=== PATIENT | female | born 1955 | race Caucasian/White ===

== ENCOUNTER 2022-08-11 07:57 | Outpatient (OUT) | payer MEDICARE, SELFPAY ==
--- NOTE | 2022-08-11 08:18 | XR_ITS ---
The [address] [address] Patient Name: CHESTER TEAGUE MRN: [id number] date: 1955 Sex: F Assigned Patient Location: [facility] Current Patient Location: [facility] Accession/Order Number: [id number] Exam Date: 08/11/2022 08:25 Report Date: 08/11/2022 08:50 At the request of: NEERAJ SANTORO Procedure: XR shoulder LT min 2V Exam: Radiographs: XR shoulder LT min 2V Reason for exam: Chronic Left Shoulder Pain M25.512 Comparison: None IMPRESSION: Mild left glenohumeral and AC joint degenerative change. Remainder of the left shoulder is unremarkable. Electronically authenticated by: EMILY GREWAL Date: 08/11/2022 08:50
== END 2022-08-11 07:58 | disposition home or self-care (01) ==
LOC: RAD 08:00
PROVIDERS: PCP Internal Medicine; Visit Provider Physician Assistant
DX: M25.512 Pain in left shoulder (principal); G89.29 Other chronic pain
CPT/HCPCS: 73030

== ENCOUNTER 2023-05-14 08:22 | Outpatient (OUT) | payer MEDICARE, SELFPAY ==
--- NOTE | 2023-05-14 08:29 | US_ITS ---
[address] [address] Patient Name: CHESTER TEAGUE MRN: [id number] date: 1955 Sex: F Assigned Patient Location: US Current Patient Location: US Accession/Order Number: [id number] Exam Date: 05/14/2023 09:00 Report Date: 05/14/2023 10:14 At the request of: NEERAJ SANTORO Procedure: US right upper quadrant EXAMINATION: US right upper quadrant HISTORY: history of pancreatic cancer Z80.0 ; chronic right upper quadrant pain COMPARISON: No relevant comparison available. TECHNIQUE: Transabdominal evaluation of the right upper quadrant. FINDINGS: LIVER: Normal size and echotexture. Color Doppler demonstrates patent hepatic veins. PORTAL VEIN: Duplex Doppler demonstrates normal hepatopetal flow pattern with flow velocity averaging 30 cm/s. GALLBLADDER: No visible gallstones, wall thickening, or pericholecystic free fluid. Negative sonographic Barnett's sign. BILIARY: No abnormal dilation or stones. Common bile duct diameter is within normal limits. PANCREASE: No visible mass, abnormal atrophy, or duct dilation. KIDNEY: No hydronephrosis. No visible mass or stones. Size: 9.0 x 4.1 x 4.0 cm US/US right upper quadrant IMPRESSION: 1. Normal right upper quadrant ultrasound. No suspicious findings. Electronically authenticated by: LEO ORO Date: 05/14/2023 10:14
--- NOTE | 2023-05-14 08:31 | CT_ITS ---
[address] [address] Patient Name: CHESTER TEAGUE MRN: [id number] date: 1955 Sex: F Assigned Patient Location: US Current Patient Location: US Accession/Order Number: [id number] Exam Date: 05/14/2023 08:37 Report Date: 05/14/2023 10:32 At the request of: NEERAJ SANTORO Procedure: CT lung screening low-dose EXAMINATION: CT lung screening low-dose HISTORY: cigarette nicotine dependence without complication F17.210 COMPARISON: CT LUNG CANCER SCREENING 04/11/2022 TECHNIQUE: Axial, Coronal, and Sagittal images were created without the administration of IV contrast material. Dose reduction techniques were achieved by using automated exposure control and/or adjustment of mA and/or kV according to patient size and/or use of iterative reconstruction technique. FINDINGS: LUNGS: Stable mild pleural scarring within posterior upper lobes bilaterally. Stable appearance of a few tiny nodules, largest is within the lateral lingula, 5 mm. PLEURA: No mass, effusion, or pneumothorax. VASCULATURE: No abnormality. SUSSY: No mass or pathologic adenopathy. MEDIASTINUM: No mass or pathologic adenopathy. CARDIAC: No enlargement, pericardial thickening, or pericardial effusion. AORTA: No aneurysm or dissection. CHEST WALL: No mass or axillary adenopathy BONES: No bone lesion or fracture. LIMITED ABDOMEN: No suspicious findings. Limited images of the upper abdomen. OTHER: Negative. CT/CT lung screening low-dose IMPRESSION: 1. Lung-RADS 2- Benign Appearance or Behavior. Nodules with a very low likelihood of becoming a clinically active cancer due to size or lack of growth. Follow-up CT Chest in 1 year. Electronically authenticated by: LEO ORO Date: 05/14/2023 10:32
== END 2023-05-14 08:23 | disposition home or self-care (01) ==
LOC: US 08:22
PROVIDERS: PCP Internal Medicine; Visit Provider Physician Assistant
DX: R10.11 Right upper quadrant pain (principal); Z87.19 Personal history of other diseases of the digestive system; Z80.0 Family history of malignant neoplasm of digestive organs; F17.210 Nicotine dependence, cigarettes, uncomplicated
CPT/HCPCS: 71271; 76705

== ENCOUNTER 2023-07-03 12:28 | Outpatient (OUT) | payer MEDICARE, SELFPAY ==
--- NOTE | 2023-07-03 12:32 | MM_ITS ---
Patient Name: CHESTER TEAGUE MR#: [id number] : 1955 Exam Date: 07/03/2023 Ordering Doctor: DR. REA MONTEJO M.D. RADIOLOGY REPORT PROCEDURE: MM TOMOSYNTHESIS SCREENING BI COMPARISON: [facility] SCREEN 3D LEONOR CAD, 06/09/2022. [facility] SCREEN 3D LEONOR CAD, 08/18/2020. [facility]ONOR DIAG W CAD, 08/19/2019. [facility] LEONOR SCRN W CAD DIG, 05/28/2013. INDICATIONS: Screening Calculator Name NCI Breast Cancer Risk Assessment Tool 5 Year Breast Cancer Risk n/a% Lifetime Breast Cancer Risk n/a% Personal Breast Cancer Yes, 5-16 Personal Ovarian Cancer No Treatments lumpectomy, radiation Family Cancers Aunt-maternal with breast cancer at age ~60; Nephew with pancreatic cancer at age 39; Father with prostate cancer at age ~70; Grandfather-paternal with prostate cancer at age ~70. LOCATION: [facility] BREAST COMPOSITION: There are scattered areas of fibroglandular density. FINDINGS: DIAGNOSTIC CATEGORY 2--BENIGN FINDING: RIGHT BREAST: No significant suspicious finding. No significant change has occurred. LEFT BREAST: No significant suspicious finding. Stable surgical clips within upper-outer quadrant and scarring within anterior breast. No significant change has occurred. RECOMMENDATIONS: ROUTINE MAMMOGRAM AND CLINICAL EVALUATION IN 12 MONTHS. PLEASE NOTE: A NORMAL MAMMOGRAM DOES NOT EXCLUDE THE POSSIBILITY OF BREAST CANCER. A CLINICALLY SUSPICIOUS PALPABLE LUMP SHOULD BE BIOPSIED. Dictated by: Matthew Coyle M.D. on 07/03/2023 at 14:44 Approved by: Matthew Coyle M.D. on 07/03/2023 at 14:46
--- NOTE | 2023-07-03 12:32 | XR_ITS ---
[address] [address] Patient Name: CHESTER TEAGUE MRN: [id number] date: 1955 Sex: F Assigned Patient Location: [facility] Current Patient Location: [facility] Accession/Order Number: [id number] Exam Date: 07/03/2023 12:45 Report Date: 07/03/2023 13:21 At the request of: REA MONTEJO Procedure: XR DEXA axial skeleton EXAMINATION: XR DEXA axial skeleton HISTORY: Aromatase inhibitor use Z79.811 COMPARISON: DEXA bone densitometry 11/02/2020 TECHNIQUE: Dual-energy X-ray absorptiometry (DXA) was performed. FINDINGS: FOREARM ANALYSIS: Average bone mineral density is 0.556 g/cm2. T-score (standard deviation relative to young adult mean): -2.2 . -2.5% change since prior study. HIP ANALYSIS: Lowest bone mineral density is within the right femoral neck, 0.953 g/cm2. T-score (standard deviation relative to young adult mean): -0.6 . +0.2% change since prior study. XR/XR DEXA axial skeleton IMPRESSION: World [employer] Classification: Osteopenia - Moderate Fracture Risk FRAX: Electronically authenticated by: LEO ORO Date: 07/03/2023 13:21
== END 2023-07-03 12:29 | disposition home or self-care (01) ==
LOC: MAMMO 12:28
PROVIDERS: PCP Internal Medicine; Visit Provider Internal Medicine Hematology & Oncology
DX: Z12.31 Encounter for screening mammogram for malignant neoplasm of breast (principal); Z79.811 Long term (current) use of aromatase inhibitors; Z80.3 Family history of malignant neoplasm of breast; Z80.8 Family history of malignant neoplasm of other organs or systems; Z80.42 Family history of malignant neoplasm of prostate; M85.80 Other specified disorders of bone density and structure, unspecified site
CPT/HCPCS: 77063; 77067; 77080

== ENCOUNTER 2023-11-27 11:14 | Outpatient (OUT) | payer MEDICARE, SELFPAY ==
--- OUTSIDE RECORDS SUMMARY | 2023-11-27 11:20 | XMS_ITS | CCD ---
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 Name Role Phone WILLARD OLMSTEAD Referring Unavailable CECILIO PATEL Primary Care Unavailable WILLARD OLMSTEAD Referring Unavailable CECILIO PATEL Primary Care Unavailable Cecilio Patel MD Primary Care Provider Cecilio Patel II Primary Care Provider Cecilio Patel II Primary Care Provider [phone] Christine Sanabria Unavailable Unavailable MD Santy Naranjo Attending Provider [phone] Maude, KPC Lorenza Primary Care Provider Santy Naranjo Attending Unavailable Santy Naranjo Admitting Unavailable Lorenza Santoro Primary Care Unavailable Amador Cope Unavailable ABMARY, JOEY Admitting Unavailable PREETHI, DR LEO Jacinto Consulting Unavailable DR CECILIO PATEL Primary Care Unavailable GUSTABO, JOEY Attending Unavailable ABMARY, JOEY Consulting Unavailable PREETHI, DR LEO Jacinto Consulting Unavailable JORGE, DR CHERY Primary Care Unavailable MAUDE, DR LORENZA Pruitt Admitting Unavailable HEMMER, DR LORENZA Pruitt Attending Unavailable HEMMAJO, DR LORENZA Pruitt Consulting Unavailable DR CECILIO PATEL Primary Care Unavailable Oliver Nj Consulting Unavailable HEMMAJO, DR LORENZA Pruitt Admitting Unavailable HEMMER, DR LORENZA Pruitt Attending Unavailable HEMMAJO, DR LORENZA Pruitt Consulting Unavailable Joreg PENALOZA MD, Daniel B Primary Care Provider CECILIO PATEL II Primary Care Unavailable ABCHAGOAR, JOEY Attending Unavailable ABHYANKAR, JOEY Referring Unavailable ABHYANKAR, JOEY Attending Unavailable GUSTABO, JOEY Referring Unavailable CECILIO PATEL II Primary Care Unavailable GUSTABO, JOEY Referring Unavailable JORGE IICECILIO Primary Care Unavailable ABCHAGOAR, JOEY Referring Unavailable CECILIO PATEL II Primary Care Unavailable GUSTABO, JOEY Referring Unavailable JORGE PENALOZA, CEICLIO Roberts Primary Care Unavailable Cecilio Patel MD Primary Care Provider LORENZA SANTORO Attending Unavailable HEMMERLORENZA Attending Unavailable MONICA HIGHTOWER Attending Unavailable HEMMERLORENZA Referring Unavailable KELBLEYJACKIE Attending Unavailable HEMMER, LORENZA Pruitt Referring Unavailable DAVID CROSS Attending Unavailable KELBLEJACKIE Zaldivar Attending Unavailable HEMMER, LORENZA Pruitt Referring Unavailable MONICA HIGHTOWER Attending Unavailable HEMMER, LORENZA Pruitt Referring Unavailable KELBLEY, JACKIE Attending Unavailable HEMMER, LORENZA Pruitt Referring Unavailable KELBLEY, JACKIE Attending Unavailable HEMMER, LORENZA Pruitt Referring Unavailable KELBLEY, JACKIE Attending Unavailable HEMMER, LORENZA Pruitt Referring Unavailable KELBLEYJACKIE Attending Unavailable HEMMERLORENZA Referring Unavailable Allergies Allergy Classification Reported Allergen(s) Allergy Type Date of Onset Reaction(s) Facility (6 sources) buPROPion Drug Allergy 07-12-2021 Anxiety [facility] Work Phone: (6 sources) zolpidem Drug Allergy 08-02-2022 [facility] Medications Current Medications Medication Drug Class(es) Dates Sig (Normalized) Sig (Original) acetaminophen 325 mg / oxyCODONE hydrochloride 5 mg oral tablet (14 sources) Opioid Agonist Start: 07-30-2019 take 1 tablet by mouth every six hours oxyCODONE-Acetami nophen 5-325 MG 1 tablet as needed Orally every 6 hrs for 14 days Jul, Active Start: 12-05-2017 take 1 tablet by kenton th every four to six hours Oxycodone-Acetaminophen Active 1 TAB PO EVERY 4-6 HOURS 49 7 December 05, 2017 12:00am Start: 01-23-2017 End: 11-20-2017 take 1 tablet by mouth every six hours Oxycodone-Acetaminophen (Percocet) 5-325 mg tablet Discontinued 1 TAB PO Q6H January 23, 2017 1:00am November 20, 2017 8:43am Start: 01-10-2017 End: 01-23-2017 take 1 tablet by mouth every four to six hours Oxycodone-Acetaminophen Discontinued 1 T AB PO EVERY 4-6 HOURS January 10, 2017 1:00am January 23, 2017 7:56am take 1 tablet by kenton th every four hours as needed oxyCODONE-acetaminophen (PERCOCET) 7.5-3 25 mg tablet Take 1 tablet by mouth every 4 hours as needed. 0 Active Comment on above: Take 1 tablet by kenton th every 4 hours as needed. ALPRAZolam 0.5 mg oral tablet (18 sources) Benzodiazepine Start: 7 take 1 tablet by mouth once daily ALPRAZolam (Xanax) 0.5 MG tablet Indications: Panic disorder with agoraphobia (CMS/HCC) Take 1 tablet (0.5 mg) by mouth 1 (one) time each day at the same time 30 tablet 05/07/2023 Active take 0.5 mg by mouth once daily as needed for sleep ALPRAZolam (XANAX) 1 MG tablet Take 0.5 mg by mouth nightly as needed for Sleep. 0 Active Comment on above: Take 0.5 mg by mouth at bedtime as needed. anastrozole 1 mg oral tablet (11 sources) Aromatase Inhibitor Start: 01-10-2017 take 1 tablet by mouth once daily anastrozole (ARIMIDEX) 1 mg tablet Take 1 tablet by mouth once daily. 90 tablet 1 04/21/2021 Active Comment on above: Take 1 tablet by kenton th once daily. ascorbic acid 1000 mg oral tablet (15 sources) Vitamin C Start: 01-10-2017 take 1 g by mouth once daily Ascorbic Acid (Vitamin C) (Vitamin C) 1,000 mg Tablet Active 1 GM PO Daily January 10, 2017 1:00am ascorbic acid (V itamin C) 500 MG chewable tablet 1 (one) time each day at the same time. Active Comment on above: Take 1,000 mg by kenton th once daily. atorvastatin 40 mg oral tablet (1 source) HMG-CoA Reductase Inhibitor Start: 05-16-19 take 40 mg by mouth once daily at bedtime Atorvastatin Active 40 MG PO Daily at bedtime May 15, 2022 12:00am busPIRone hydrochloride 10 mg oral tablet (1 source) Start: 05-16-19 take 1 tablet by mouth twice daily Buspirone (Buspar) 10 mg Tablet Active 10 MG PO Twice daily May 15, 2022 12:00am Calcium (3 sources) Phosphate Binder, Calcium CALCIUM ORAL Take by mouth. 0 Active Comment on above: Take by mouth. calcium carbonate 1250 mg oral tablet (1 source) take 2 tablets by mouth every twenty-four hours Calcium 500 MG 2 tablet with food Orally Once a day Active Calcium-Vitamin D3-Vitamin K (Viactiv) 650 mg-12.5 mcg-40 mcg Tablet,Chewable (1 source) Start: 11-12-19 take 1 tablet by mouth once daily Calcium-Vitamin D3-Vitamin K (Viactiv) 650 mg-12.5 mcg-40 mcg Tablet,Chewable Active 1 TAB PO Daily November 11, 2018 12:00am Centrum Silver - (1 source) Centrum Silver - as directed Orally Active Claritin-D 24 Hour 10-240 MG (1 source) take 10-240 mg by mouth once daily as needed Claritin-D 24 Hour 10-240 MG 1 tablet as needed Orally Once a day for 30 day(s) PRN Active cyclobenzaprine hydrochloride 10 mg oral tablet (7 sources) Muscle Relaxant Start: 10-12-19 24 cyclobenzaprine (Flexeril) 10 MG tablet Indications: Lumbar post-laminectomy syndrome TAKE 1 TABLET AT BEDTIME NEEDED FOR MUSCLE SPASMS 90 tablet 3 10/12/2023 Active Start: 05-15-2022 take 10 mg by mouth at bedtime Cyclobenzaprine Active 10 MG PO Bedtime May 15, 2022 12:00am diclofenac sodium 50 mg delayed release oral tablet (20 sources) Nonsteroidal Anti-inflammatory Drug Start: 10-05-2023 take 1 tablet by mouth in the morning diclofenac (Voltaren) 50 MG EC tablet Indications: Chronic left shoulder pain Take 1 tablet (50 mg) by mouth in the morning and 1 tablet (50 mg) before bedtime. Do not crush, chew, or split.. 60 tablet 2 10/05/2023 Active Start: 11-11-2018 apply 1 g topically twice nils y Diclofenac Sodium (Voltaren) 1 % Gel Active 1 GM TOPICAL Twice daily November 11, 2018 12:00am Start: 11-20-2017 take 50 mg by mouth twice nils y Diclofenac Sodium Active 50 MG PO Twice daily November 20, 2017 12:00am Start: 11-20-2017 End: 12-03-2018 Diclofenac Sodium Discontinu ed 1 APPLIC TOPICAL Twice daily November 20, 2017 12:00am December 03, 2018 8:16am Start: 01-10-2017 End: 01-23-2017 apply 2 g topically twice daily Diclofenac Sodium Disc ontinued 2 GM TOPICAL Twice daily January 10, 2017 1:00am January 23, 2017 7:56am diclofenac potas sium (CATAFLAM) 50 mg tablet Take 50 mg by mouth. 0 Active Comment on above: Take 50 mg by mouth. docusate sodium 100 mg oral tablet (8 sources) Docusate Sodium 100 mg tab Take 1 tablet by mouth as needed. 0 Active Comment on above: Take 1 tablet by ketnon as needed. fluticasone propionate 0.05 mg/actuat metered dose nasal spray (15 sources) Corticosteroid Start: 1 take 1 spray(s) nasal route once daily fluticasone (Flonase) 50 MCG/ACT nasal spray Indications: Allergic rhinitis, unspecified seasonality, unspecified trigger USE 1 SPRAY IN EACH NOSTRIL ONCE DAILY 32 g 3 04/09/2023 Active Start: 07-21-2019 take 1 spray(s) nasa l route once daily Fluticasone Propionate 50 MCG/ACT 1 spray in each nostril Nasally Once a day for 30 day(s) Jul, Active gabapentin 300 mg oral capsule (17 sources) Anti-epileptic Agent Start: 10-05-2023 take 2 capsules by mouth at bedtime gabapentin (Neurontin) 300 MG capsule Indications: Neuropathy Take 2 capsules (600 mg) by mouth at bedtime 10/05/2023 Active Start: 01-10-2017 gabapentin (NE URONTIN) 300 mg capsule 300 mg. 0 01/10/2017 Active take 1 capsule by mo [facility] three times daily gabapentin (NEURONTIN) 400 MG capsule Take 400 mg by mouth 3 times daily. 0 Active Comment on above: 300 mg. ibuprofen 200 mg oral tablet (8 sources) Nonsteroidal Anti-inflammatory Drug take 1 tablet by mouth every six hours as needed ibuprofen (MOTRIN) 200 mg tablet Take 200 mg by mouth every 6 hours as needed. 0 Active Comment on above: Take 200 mg by mouth every 6 hours as needed. levothyroxine sodium 0.025 mg oral tablet (15 sources) l-Thyroxine Start: 10-24-19 levothyroxine (Synthroid, Levoxyl) 25 MCG tablet Indications: Hypothyroidism, unspecified type (CMS/HCC) TAKE 1 TABLET ONE TIME DAILY IN THE MORNING ON AN EMPTY STOMACH 90 tablet 3 10/24/2023 Active Start: 10-22-2020 take 1 tablet by kenton th once daily in the morning levothyroxine (SYNTHROID) 25 mcg tablet Take 25 mcg by mouth every morning. Take On an Empty Stomach 0 10/22/2020 Active Comment on above: Take 25 mcg by mouth every morning. Take On an Empty Stomach loratadine 10 mg oral tablet (9 sources) Start: 11-11-2018 loratadine (CLARITIN) 10 mg tablet Loratadine Active 1 TAB Oral Daily November 11, 2018 10:56am 0 11/11/2018 Active Comment on above: Loratadine Active 1 TAB Oral Daily November 11, 2018 10:56am Magnesium (14 sources) Magnesium 300 MG capsule 1 (one) time each day at the same time. Active MAGNESIUM ORAL T yajaira 800 mg by mouth. 0 Active Magnesium 250 mg tab Take 250 mg by mouth. 0 Active Comment on above: Take 250 mg by mouth . Take 800 mg by mouth . melatonin 10 mg oral capsule (7 sources) Start: 11-11-2018 take 1 tablet by mouth at bedtime Melatonin Active 1 TAB PO Bedtime November 11, 2018 12:00am Melatonin 10 MG capsule as directed Orally Active mirtazapine 15 mg oral tablet (8 sources) Start: 10-26-2015 take 1 tablet by mouth once daily at bedtime mirtazapine (REMERON) 15 mg tablet Take 15 mg by mouth daily at bedtime. 0 10/26/2015 Active Comment on above: Take 15 mg by mouth daily at bedtime. MULTI-VITAMIN ORAL (8 sources) take 1 tablet by mouth once daily MULTI-VITAMIN ORAL Take 1 tablet by mouth once daily. 0 Active Comment on above: Take 1 tablet by kenton th once daily. Kq-Tcb-Yxrfy-Calciu m Carb-K1 (Women's 50 Plus Daily Formula) 400 mcg-500 mg calcium-20 mcg Tablet (1 source) Start: 01-10-2017 take 1 tablet by mouth once daily Po-Efs-Dhxjv-Calci um Carb-K1 (Women's 50 Plus Daily Formula) 400 mcg-500 mg calcium-20 mcg Tablet Active 1 TAB PO Daily January 10, 2017 1:00am omeprazole 20 mg delayed release oral capsule (16 sources) Proton Pump Inhibitor Start: 05-15-2022 take 1 capsule by mouth before mealtime omeprazole (PriLOSEC) [address] capsule Take 1 capsule by mouth in the morning. Take before meals. 08/21/2022 Active omeprazole (PRIL OSEC) 10 mg capsule Take 10 mg by mouth as needed. 0 Active Comment on above: Take 10 mg by mouth as needed. Take 20 mg by mouth as needed. 24 hr oxybutynin chloride 5 mg extended release oral tablet (8 sources) Cholinergic Muscarinic Antagonist Start: 10-19-2020 oxybutynin XL (DITROPAN XL) 5 mg 24 hr tablet PARoxetine hydrochloride 20 mg oral tablet (16 sources) Serotonin Reuptake Inhibitor Start: 11-12-2023 PARoxetine (Paxil) 20 MG tablet Indications: Moderate episode of recurrent major depressive disorder (CMS/HCC) TAKE 1 TABLET ONE TIME DAILY AT THE SAME TIME 90 tablet 3 11/12/2023 Active Start: 01-16-2023 take 1 tablet by kenton th once daily PARoxetine (Paxil) 20 MG tablet Indications: Moderate episode of recurrent major depressive disorder (CMS/HCC) Take 1 tablet (20 mg) by mouth 1 (one) time each day at the same time 100 tablet 3 01/16/2023 Active Start: 11-17-2021 take 1 tablet by kenton th once daily PARoxetine (PAXIL) 10 mg tablet Take 10 mg by mouth once daily. 0 11/17/2021 Active Start: 11-17-2021 take 1 tablet by kenton th once daily PARoxetine (PAXIL) 20 mg tablet Take 20 mg by mouth once daily. 0 11/17/2021 Active Start: 11-20-2017 take 30 mg by mouth once daily at bedtime Paroxetine Hcl Active 30 MG PO Daily at bedtime November 20, 2017 12:00am Comment on above: Take 20 mg by mouth once daily. Take 10 mg by mouth once daily. Polyethylene Glycols (3 sources) polyethylene gly col 3350 (PURELAX ORAL) Take by mouth. 0 Active Comment on above: Take by mouth. pravastatin sodium 40 mg oral tablet (18 sources) HMG-CoA Reductase Inhibitor Start: 11-17-2022 pravastatin (Pravachol) 40 MG tablet Indications: Mixed hyperlipidemia (CMS/HCC) TAKE 1 TABLET EVERY DAY 100 tablet 3 11/17/2022 Active Start: 01-10-2017 End: 05-15-2022 take 40 mg by mouth once daily at bedtime Pravastatin Discontinued 40 MG PO Daily at bedtime January 10, 2017 1:00am May 15, 2022 8:04am Comment on above: Take 40 mg by mouth once daily. Pseudoephedrine (6 sources) alpha-Adrenergic Agonist take 1 tablet by mouth in the morning Pseudoephedrine HCl (SINUS & ALLERGY 12 HOUR PO) Take 1 tablet by mouth in the morning and 1 tablet before bedtime. PRN. Active varenicline 1 mg oral tablet (1 source) Partial Cholinergic Nicotinic Agonist Start: 020 take 1 tablet by mouth every twelve hours Chantix 1 MG 1 tablet Orally Twice a day for 30 day(s) Jul, Active vitamin b12 1 mg oral tablet (6 sources) Vitamin B12 take 1 tablet by mouth once daily cyanocobalamin (Vitamin B-12) 1000 MCG tablet Take 1,000 mcg by mouth Daily Active Vitamin C 1000 MG (1 source) take 1 tablet by mouth once daily Vitamin C 1000 MG 1 tablet Orally Once a day Active 100 ml zoledronic acid 0.04 mg/ml injection (4 sources) Bisphosphonate Start: 023 Zoledronic Rwdd-Krezicpv-Auvuj (Zometa) 4 mg/100 mL Piggyback Active 4 MG IV EVERY 6 MONTHS May 15, 2022 12:00am administer over at least 15 mins zoledronic acid (ZOMETA INTRAVENOUS) Inject intravenously every 6 hours as needed. 0 Active Comment on above: Inject intravenously every 6 hours as needed. Completed/Discontinued Medications Medication Drug Class(es) Dates Sig (Normalized) Sig (Original) alendronic acid 70 mg oral tablet (3 sources) Bisphosphonate Start: 11-20-2017 End: 05-15-2022 take 70 mg by mouth every week Alendronate Discontinued 70 MG PO every week November 20, 2017 12:00am May 15, 2022 8:05am alendronate (FOS AMAX) 70 MG tablet Take 70 mg by mouth every 7 days 0 Active amitriptyline hydrochloride 25 mg oral tablet (1 source) Tricyclic Antidepressant Start: 01-10-2017 End: 11-20-2017 take 25 mg by mouth once daily at bedtime Elavil Discontinued 25 MG PO Daily at bedtime January 10, 2017 1:00am November 20, 2017 8:42am aspirin 81 mg delayed release oral tablet (9 sources) Platelet Aggregation Inhibitor, Nonsteroidal Anti-inflammatory Drug Start: 01-10-2017 End: 05-15-2022 take 81 mg by mouth once daily at bedtime Aspirin Discontinued 81 MG PO Daily at bedtime January 10, 2017 1:00am May 15, 2022 8:05am Comment on above: Take 81 mg by mouth once daily. benzonatate 100 mg oral capsule (1 source) Non-narcotic Antitussive Start: 04-09-2019 take 1 capsule by mouth every eight hours Benzonatate 100 MG 1 capsule as needed Orally Three times a day for 10 days Apr, Not-Taking 24 hr buPROPion hydrochloride 150 mg extended release oral tablet (3 sources) Aminoketone Start: 11-14-2019 take 1 tablet by mouth once daily in the morning buPROPion XL (WELLBUTRIN XL) 150 mg 24 hr tablet TAKE 1 TABLET BY MOUTH EVERY DAY IN THE MORNING 0 11/14/2019 Active Start: 01-10-2017 End: 11-20-2017 take 150 mg by mouth once daily in the morning Bupropion Hcl Discontinued 150 MG PO Every morning January 10, 2017 1:00am November 20, 2017 8:41am Comment on above: TAKE 1 TABLET BY [place] EVERY DAY IN THE MORNING calcium carbonate 1250 mg / cholecalciferol 500 unt / vitamin k1 0.04 mg chewable tablet (9 sources) Vitamin D, Warfarin Reversal Agent, Vitamin K Start: 017 End: 018 take 2 tablets by mouth once daily Calcium-Vitamin D3-Vitamin K (Viactiv) 500-500-40 mg-unit-mcg Tablet,Chewable Discontinued 2 TAB PO Daily January 10, 2017 1:00am November 20, 2017 8:41am Comment on above: Take 2 tablets by mo [facility] once daily. cefdinir 300 mg oral capsule (1 source) Cephalosporin Antibacterial Start: 020 take 1 capsule by mouth every twelve hours Cefdinir 300 MG 1 capsule Orally bid for 10 days Apr, Not-Taking cephalexin 500 mg oral capsule (1 source) Cephalosporin Antibacterial Start: End: take 1 capsule by mouth every eight hours Cephalexin (Keflex) 500 mg capsule Discontinued 500 MG PO Q8H 21 January 23, 2017 1:00am November 20, 2017 8:41am 1 ml denosumab 60 mg/ml prefilled syringe (8 sources) RANK Ligand Inhibitor Start: End: Denosumab (Prolia) 60 mg/mL Syringe Discontinued 60 MG SUBCUT EVERY 6 MONTHS January 10, 2017 1:00am November 20, 2017 8:42am Iopamidol (1 source) Radiographic Contrast Agent Start: End: iopamidol (ISOVUE-M 300) 61 % injection 15 mL lamoTRIgine 200 mg oral tablet (1 source) Mood Stabilizer, Anti-epileptic Agent Start: End: take 1 tablet by mouth at bedtime Lamotrigine (Lamictal) 200 mg Tablet Discontinued 200 MG PO Bedtime January 10, 2017 1:00am November 20, 2017 8:42am 10 ml lidocaine hydrochloride 20 mg/ml injection (1 source) Antiarrhythmic, Amide Local Anesthetic Start: End: lidocaine 2 % injection 10 mL polyethylene glycol 3350 [id number] mg powder for oral solution (7 sources) Osmotic Laxative Start: End: Polyethylene Glycol 3350 (Miralax) 17 gram/dose Powder Discontinued 17 GM PO Daily January 10, 2017 1:00am November 20, 2017 8:43am Triamcinolone (2 sources) Corticosteroid Start: Kenalog -40 mg Jul, 40 mg Problems Active Problems Problem Classification Problem Date Documented Date Episodic/Chronic Abdominal pain (1 source) Right upper quadrant pain; Translations: [RIGHT UPPER QUADRANT PAIN] Onset: 05-21-2022 Episodic Anxiety disorders (13 sources) Panic disorder with agoraphobia; Translations: [Agoraphobia with panic disorder] Onset: 07-12-2021 08-02-2022 Chronic Cancer of breast (20 sources) Malignant neoplasm of female breast; Translations: [Malignant neoplasm of nipple and areola, left female breast] Onset: 08-02-2015 02-12-2020 Chronic Cancer of breast (2 sources) Personal history of primary malignant neoplasm of breast; Translations: [Personal history of malignant neoplasm of breast] 06-21-2023 Episodic Cancer of rectum and anus (7 sources) Malignant tumor of anus; Translations: [Malignant neoplasm of anus, unspecified] Onset: 08-02-2022 08-02-2022 Chronic Cancer of rectum and anus (1 source) History of malignant neoplasm of anus; Translations: [Personal history of other malignant neoplasm of rectum, rectosigmoid junction, and anus] Episodic Chronic obstructive pulmonary disease and bronchiectasis (6 sources) Centriacinar emphysema; Translations: [Centrilobular emphysema] Onset: 08-02-2022 08-02-2022 Chronic Disorders of lipid metabolism (7 sources) Mixed hyperlipidemia; Translations: [Mixed hyperlipidemia] Onset: 08-02-2022 08-02-2022 Chronic Diverticulosis and diverticulitis (7 sources) Diverticular disease of colon; Translations: [Diverticulosis of intestine, part unspecified, without perforation or abscess without bleeding] Onset: 08-02-2022 08-02-2022 Chronic Esophageal disorders (10 sources) Garcia's esophagus; 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] Onset: 08-02-2022 Chronic Gastritis and duodenitis (1 source) Gastritis; Translations: [Gastritis, unspecified, without bleeding] Episodic Genitourinary symptoms and ill-defined conditions (13 sources) Mixed urinary incontinence; Translations: [Mixed incontinence] Onset: 11-17-2014 Resolved: 05-07-2023 11-08-2022 Chronic Menopausal disorders (14 sources) Menopausal symptom; Translations: [Menopausal and female climacteric states] Onset: 08-02-2022 08-02-2022 Chronic Mood disorders (13 sources) Bipolar II disorder; Translations: [Bipolar II disorder] Onset: 08-02-2022 08-02-2022 Chronic Nausea and vomiting (4 sources) Vomiting, unspecified; Translations: [VOMITING UNSPECIFIED] Onset: 05-13-2022 Episodic Other ear and sense organ disorders (6 sources) Sensorineural hearing loss, bilateral; Translations: [Sensorineural hearing loss, bilateral] Onset: 08-02-2022 08-02-2022 Chronic Other nervous system disorders (1 source) Bilateral carpal tunnel syndrome; Translations: [Carpal tunnel syndrome, bilateral upper limbs] Chronic Other nervous system disorders (1 source) Carpal tunnel syndrome; Translations: [Carpal tunnel syndrome, unspecified upper limb] Chronic Other nervous system disorders (1 source) Chronic pain; Translations: [Other chronic pain] Chronic Other nervous system disorders (1 source) Ulnar neuropathy; Translations: [Lesion of ulnar nerve, left upper limb] Chronic Other nervous system disorders (6 sources) Lesion of ulnar nerve, left upper limb; Translations: [Lesion of ulnar nerve] Onset: 08-02-2022 08-02-2022 Chronic Other nervous system disorders (6 sources) Chronic postoperative pain; Translations: [Other chronic postprocedural pain] Onset: 04-26-2020 11-08-2022 Chronic Other nervous system disorders (6 sources) Neuropathy; Translations: [Polyneuropathy, unspecified] Onset: 07-12-2021 11-08-2022 Chronic Other nervous system disorders (6 sources) Posttreatment pain; Translations: [Other chronic postprocedural pain] Onset: 08-02-2022 Resolved: 05-07-2023 05-07-2023 Chronic Other non-traumatic joint disorders (9 sources) Chronic pain of left upper limb; Translations: [Pain in left shoulder] Onset: 08-10-2022 08-10-2022 Episodic Other upper respiratory disease (7 sources) Allergic rhinitis; Translations: [Allergic rhinitis, unspecified] Onset: 08-02-2022 08-02-2022 Chronic Other upper respiratory infections (20 sources) Recurrent sinusitis; Translations: [Chronic sinusitis, unspecified] Onset: 08-02-2022 08-02-2022 Chronic Prolapse of female genital organs (14 sources) Cystocele; Translations: [Cystocele, unspecified] Onset: 08-02-2022 08-02-2022 Chronic Residual codes; unclassified (1 source) Family history of malignant neoplasm of breast; Translations: [FAMILY HX MALIG NEOPLASM OF BREAST] Onset: 06-15-2022 Episodic Residual codes; unclassified (1 source) Family history of malignant neoplasm of other organs or systems; Translations: [FAM HX MALIG NEOPLASM OTH ORGN/SYS] Onset: 06-15-2022 Episodic Spondylosis; intervertebral disc disorders; other back problems (20 sources) Lumbar spondylosis; Translations: [Prolapsed lumbar intervertebral disc] Onset: 11-12-2017 Chronic Spondylosis; intervertebral disc disorders; other back problems (20 sources) Spinal stenosis of lumbar region; Translations: [Lumbar radiculopathy] Onset: 11-17-2021 Episodic Substance-related disorders (11 sources) Nicotine dependence; Translations: [Nicotine dependence, cigarettes, uncomplicated] Onset: 04-11-2022 Chronic Thyroid disorders (8 sources) Disorder of thyroid gland; Translations: [Iodine-deficiency related diffuse (endemic) goiter] Onset: 08-02-2022 08-02-2022 Chronic Unclassified (1 source) Encounter for screening for malignant neoplasm of colon; Translations: [Encounter for screening for malignant neoplasm of colon] Onset: 05-15-2022 Past or Other Problems Problem Classification Problem Date Documented Da te Episodic/Chronic Diabetes mellitus without complication (7 sources) Impaired fasting glycemia; Translations: [Impaired fasting glucose] Onset: 08-02-2022 08-02-2022 Episodic Mood disorders (6 sources) Mood disorders Onset: 05-07-2023 05-07-2023 Nonspecific chest pain (6 sources) Pain of intercostal space; Translations: [Intercostal pain] Onset: 11-02-2016 11-08-2022 Episodic Other acquired deformities (7 sources) Lumbar spondylolisthesis; Translations: [Spondylolisthesis, lumbar region] Onset: 08-02-2022 08-02-2022 Episodic Other aftercare (17 sources) Prophylactic aromatase inhibitors given; Translations: [group home (current) use of aromatase inhibitors] Onset: 02-12-2020 02-12-2020 Episodic Other aftercare (1 source) group home (current) use of aromatase inhibitors; Translations: [Aromatase inhibitor use] Onset: 02-12-2020 Episodic Other bone disease and musculoskeletal deformities (7 sources) Osteopenia; Translations: [Other specified disorders of bone density and structure, multiple sites] Onset: 08-02-2022 08-02-2022 Episodic Other connective tissue disease (6 sources) Pain in bilateral legs; Translations: [Pain in right leg] Onset: 07-10-2016 11-08-2022 Episodic Other ear and sense organ disorders (6 sources) Bilateral tinnitus; Translations: [Tinnitus, bilateral] Onset: 08-02-2022 08-02-2022 Episodic Other female genital disorders (6 sources) Disorder of female genital organs; Translations: [Unspecified condition associated with female genital organs and menstrual cycle] Onset: 08-02-2022 08-02-2022 Episodic Other gastrointestinal disorders (9 sources) Dysphagia; Translations: [Dysphagia, unspecified] Onset: 08-02-2022 08-02-2022 Episodic Other gastrointestinal disorders (6 sources) History of gastritis; Translations: [Personal history of other diseases of the digestive system] Onset: 10-19-2020 11-08-2022 Episodic Other injuries and conditions due to external causes (9 sources) Pseudoarthrosis of spine; Translations: [Unspecified fracture of unspecified lumbar vertebra, subsequent encounter for fracture with nonunion] Onset: 08-02-2022 Episodic Other screening for suspected conditions (not mental disorders or infectious disease) (12 sources) Mammography abnormal; Translations: [Other abnormal and inconclusive findings on diagnostic imaging of breast] Onset: 06-09-2022 Episodic Other skin disorders (6 sources) Disorder of skin; Translations: [Disorder of the skin and subcutaneous tissue, unspecified] Onset: 07-13-2016 11-08-2022 Episodic Residual codes; unclassified (7 sources) Insomnia; Translations: [Insomnia, unspecified] Onset: 08-02-2022 08-02-2022 Episodic Residual codes; unclassified (1 source) Estrogen receptor positive status [ER+]; Translations: [Malignant neoplasm of areola of left breast in female, estrogen receptor positive (HCC)] Onset: 02-12-2020 Episodic Residual codes; unclassified (6 sources) Flushing; Translations: [Flushing] Onset: 08-02-2022 08-02-2022 Episodic Residual codes; unclassified (6 sources) Family history of malignant neoplasm of pancreas; Translations: [Family history of malignant neoplasm of digestive organs] Onset: 06-23-2021 11-08-2022 Episodic Residual codes; unclassified (6 sources) Tobacco use and exposure - finding; Translations: [Tobacco use] Onset: 07-12-2021 Resolved: 05-07-2023 05-07-2023 Episodic Sexually transmitted infections (not HIV or hepatitis) (7 sources) HPV - Human papillomavirus test positive; Translations: [Cervical high risk human papillomavirus (HPV) DNA test positive] Onset: 08-02-2022 08-02-2022 Episodic Thyroid disorders (6 sources) Disorder of thyroid gland; Translations: [Disorder of thyroid, unspecified] Onset: 08-02-2022 Resolved: 05-07-2023 05-07-2023 Episodic Varicose veins of lower extremity (13 sources) Varicose veins of lower extremity; Translations: [Asymptomatic varicose veins of bilateral lower extremities] Onset: 07-10-2016 Resolved: 05-07-2023 11-08-2022 Episodic Results Test Name Value Interpretation Reference Range Facility CBC W Auto Differential pane l (Bld)on 06-21-2023 Basophils (Bld) [#/Vol] 0.08 10*3/uL Normal <0.11 [facility] Comment on above: Order Comment: Speci men Type: BLOOD SPECIMEN Ordering Facility: [facility] Address: [address] [place] [address] Performed By: #### 5 7021-8 #### [facility] CLIA [id number] [address] [place] [address] 74818 Basophils/100 WBC (Bld) 1.0 % Normal [facility] Comment on above: Order Comment: Speci men Type: BLOOD SPECIMEN Ordering Facility: [facility] Address: [address] [place] [address] Performed By: #### 5 7021-8 #### [facility] CLIA [id number] [address] [place] [address] 65587 Differential cell count method Nom (Bld) Auto Normal [facility] Comment on above: Order Comment: Speci men Type: BLOOD SPECIMEN Ordering Facility: [facility] Address: [address] [place] [address] Performed By: #### 5 7021-8 #### [facility] CLIA [id number] [address] [place] [address] 31064 Eosinophils (Bld) [#/Vol] 0.08 10*3/uL Normal <0.46 [facility] Comment on above: Order Comment: Speci men Type: BLOOD SPECIMEN Ordering Facility: [facility] Address: [address] [place] [address] Performed By: #### 5 7021-8 #### [facility] CLIA [id number] [address] [place] [address] Eosinophils/100 WBC (Bld) 1.0 % Normal [facility] Comment on above: Order Comment: Speci men Type: BLOOD SPECIMEN Ordering Facility: [facility] Address: [address] [place] [address] Performed By: #### 5 7021-8 #### [facility] CLIA [id number] [address] [place] [address] 24188 Erythrocyte distribution width (RBC) [Ratio] 12.9 % Normal 11.5-15.0 [facility] Comment on above: Order Comment: Speci men Type: BLOOD SPECIMEN Ordering Facility: [facility] Address: [address] [place] [address] Performed By: #### 5 7021-8 #### [facility] CLIA [id number] [address] [place] [address] 38023 Hematocrit (Bld) [Volume fraction] 41.0 % Normal 36.0-46.0 [facility] Comment on above: Order Comment: Speci men Type: BLOOD SPECIMEN Ordering Facility: [facility] Address: [address] [place] [address] Performed By: #### 5 7021-8 #### [facility] CLIA [id number] [address] [place] [address] 57082 Hemoglobin (Bld) [Mass/Vol] 13.4 g/dL Normal 11.5-15.5 [facility] Comment on above: Order Comment: Speci men Type: BLOOD SPECIMEN Ordering Facility: [facility] Address: [address] [place] [address] Performed By: #### 5 7021-8 #### [facility] CLIA [id number] [address] [place] [address] 25484 Immature granulocytes (Bld) [#/Vol] 0.04 10*3/uL Normal <0.10 [facility] Comment on above: Order Comment: Speci men Type: BLOOD SPECIMEN Ordering Facility: [facility] Address: [address] [place] [address] Performed By: #### 5 7021-8 #### [facility] CLIA [id number] [address] [place] [address] 74116 Immature granulocytes/100 WBC (Bld) 0.5 % Normal [facility] Comment on above: Order Comment: Speci men Type: BLOOD SPECIMEN Ordering Facility: [facility] Address: [address] [place] [address] Performed By: #### 5 7021-8 #### [facility] CLIA [id number] [address] [place] [address] 20771 Lymphocytes (Bld) [#/Vol] 2.74 10*3/uL Normal 1.00-4.00 [facility] Comment on above: Order Comment: Speci men Type: BLOOD SPECIMEN Ordering Facility: [facility] Address: [address] [place] [address] Performed By: #### 5 7021-8 #### [facility] CLIA [id number] [address] [place] [address] 79440 Lymphocytes/100 WBC (Bld) 35.3 % Normal [facility] Comment on above: Order Comment: Speci men Type: BLOOD SPECIMEN Ordering Facility: [facility] Address: [address] [place] [address] Performed By: #### 5 7021-8 #### [facility] CLIA [id number] [address] [place] [address] 81189 MCH (RBC) [Entitic mass] 31.2 pg Normal 26.0-34.0 [facility] Comment on above: Order Comment: Speci men Type: BLOOD SPECIMEN Ordering Facility: [facility] Address: [address] [place] [address] Performed By: #### 5 7021-8 #### [facility] CLIA [id number] [address] [place] [address] MCHC (RBC) [Mass/Vol] 32.7 g/dL Normal 30.5-36.0 [facility] Comment on above: Order Comment: Speci men Type: BLOOD SPECIMEN Ordering Facility: [facility] Address: [address] [place] [address] Performed By: #### 5 7021-8 #### [facility] CLIA [id number] [address] [place] [address] 14506 MCV (RBC) [Entitic vol] 95.6 fL Normal 80.0-100.0 [facility] Comment on above: Order Comment: Speci men Type: BLOOD SPECIMEN Ordering Facility: [facility] Address: [address] [place] [address] Performed By: #### 5 7021-8 #### [facility] CLIA [id number] [address] [place] [address] 03113 Monocytes (Bld) [#/Vol] 0.54 10*3/uL Normal <0.87 [facility] Comment on above: Order Comment: Speci men Type: BLOOD SPECIMEN Ordering Facility: [facility] Address: [address] [place] [address] Performed By: #### 5 7021-8 #### [facility] CLIA [id number] [address] [place] [address] 20292 Monocytes/100 WBC (Bld) 6.9 % Normal [facility] Comment on above: Order Comment: Speci men Type: BLOOD SPECIMEN Ordering Facility: [facility] Address: [address] [place] [address] Performed By: #### 5 7021-8 #### [facility] CLIA [id number] [address] [place] [address] 00824 Neutrophils (Bld) [#/Vol] 4.29 10*3/uL Normal 1.45-7.50 [facility] Comment on above: Order Comment: Speci men Type: BLOOD SPECIMEN Ordering Facility: [facility] Address: [address] [place] [address] Performed By: #### 5 7021-8 #### [facility] CLIA [id number] [address] [place] [address] 01897 Neutrophils/100 WBC (Bld) 55.3 % Normal [facility] Comment on above: Order Comment: Speci men Type: BLOOD SPECIMEN Ordering Facility: [facility] Address: [address] [place] [address] Performed By: #### 5 7021-8 #### [facility] CLIA [id number] [address] [place] [address] 79930 Nucleated RBC (Bld) [#/Vol] 10*3/uL Normal <0.01 [facility] Comment on above: Order Comment: Speci men Type: BLOOD SPECIMEN Ordering Facility: [facility] Address: [address] [place] [address] Performed By: #### 5 7021-8 #### [facility] CLIA [id number] [address] [place] [address] 52226 Nucleated RBC/100 WBC (Bld) [Ratio] 0.0 /100 WBC Normal [facility] Comment on above: Order Comment: Speci men Type: BLOOD SPECIMEN Ordering Facility: [facility] Address: [address] [place] [address] Performed By: #### 5 7021-8 #### [facility] CLIA [id number] [address] [place] [address] 81496 Platelet mean volume (Bld) [Entitic vol] 10.4 fL Normal 9.0-12.7 [facility] Comment on above: Order Comment: Speci men Type: BLOOD SPECIMEN Ordering Facility: [facility] Address: [address] [place] [address] Performed By: #### 5 7021-8 #### [facility] CLIA [id number] [address] [place] [address] 07131 Platelets (Bld) [#/Vol] 261 10*3/uL Normal 150-400 [facility] Comment on above: Order Comment: Speci men Type: BLOOD SPECIMEN Ordering Facility: [facility] Address: [address] [place], [place] [address] Performed By: #### 5 7021-8 #### [facility] CLIA [id number] [address] [place] [address] 94250 RBC (Bld) [#/Vol] 4.29 10*6/uL Normal 3.90-5.20 [facility] Comment on above: Order Comment: Speci men Type: BLOOD SPECIMEN Ordering Facility: [facility] Address: [address] [place] [address] Performed By: #### 5 7021-8 #### [facility] CLIA [id number] [address] [place] [address] WBC (Bld) [#/Vol] 7.77 10*3/uL Normal 3.70-11.00 [facility] Comment on above: Order Comment: Speci men Type: BLOOD SPECIMEN Ordering Facility: [facility] Address: [address] [place] [address] Performed By: #### 5 7021-8 #### [facility] CLIA [id number] [address] [place] [address] 58787 CNOVSPon 06-21-2023 CNOVS Visit (SP) Office ([place]) FATOU TAYLOR ([id number]) 1955 F Date Time Provider Department 06/21/23 2:30 PM JOEY MONTEJO During your visit today, we recorded the following information about you: Temperature Pulse Respiration Blood pressure 97.9 degrees 62/minute 16/minute 147/83 Weight 74.2 kg Joey Montejo MD 06/21/2023 10:25 PM Signed NAME: Fatou Taylor CLINIC NO.: [id number] DATE OF SERVICE: June 21, 2023 ([place]) Some elements in this clinic note that are critical to medical decision making have been carefully reviewed and included from a prior clinic note dated: July 06, 2022 ([place]) Referring Provider: Dr. Ruvalcaba Additional Clinicians involved in Fatou Taylor's care: CC: Follow-up for breast cancer. 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 She was having severe night sweats on Arimidex and have been getting worse over the past couple years so we stopped Arimidex but symptoms didn't resolve so continued until recently Prior history of hemorrhoidectomy with findings of high-grade squamous intraepithelial dysplasia - 2016. PLAN: DXA scan to determine need for additional Zometa Triage to call results RTC 12 months 1-2 weeks after Mammography - labs same day repeat exam - 30 mins - HPI: CASE HISTORY: Reverse Chronological Order 06/09/2022 - Mammo screening: BiRADs 2. 08/18/2020 - Mammograms Birads-2 Late 2015-01/2022 - Arimidex Updated Visit, June 21, 2023: Fatou returns today for a follow up. She complains of chronic back pain. She denies any breast pain or noticeable changes. She is due for a DXA scan - may need additional Zometa. Mammogram next week. Chaperoned Breast Exam June 21, 2023 ([place]ate Rivera) : Right breast is normal, Left breast has small, chronic defect in axillary tail, overall no changes. Rhiannon exam is negative. Updated Visit, July 06, 2022: Fatou reports left arm pain - may have some symptom relief with lymphedema specialist although I could not feel much edema. Updated Visit, January 05, 2022: Moved back from [place] couldn't cope and was getting depressed. Mammograms done last June. Bone density up to date. Labs stable. Will obtain mammograms in June 2022 in addition to Zometa. When she returns after mammograms I will see her and examine her. She elected to stop Arimidex having completed approximately 5-6 years. Updated Visit, October 21, 2020: 65 yo woman with left ER + breast cancer. Relapsed with smoking but is trying to quit again. Breast exam unchanged. Continue taking Hi + Vit D. Needs surveillance for high-grade squamous intraepithelial dysplasia Updated Visit, March 18, 2020: Fatou is a 64-year-old woman with a prior history of early stage left breast cancer and had been on Arimidex since late 2015. She had complained of worsening sweats And so we had her hold the Arimide for 1 month. She returns today and has had no change off of Arimidex so will restart it. She has quit smoking and it's possible that sweats are from her body's enhanced response to her lung inflammation and trying to clear this. Initial Visit, February 12, 2020: Fatou is a 64-year-old woman with a prior history of early stage left breast cancer currently on Arimidex since late 2015. She has been followed up [facility] in [place] but is transferring her care here. Historically, she presented July of 2015 in consultation with an early stage breast cancer. ` For a workup of a breast mass on mammography she was taken to stereotactic biopsy June 25, 2015 with the findings of a 0.5 cm grade 2 breast cancer on the left. The cancer was ER and NV positive and HER 2 negative. The patient was then taken back for lumpectomy and axillary node dissection. Pathology showed a 0.5 cm grade 2 breast cancer with 1 sentinel lymph node negative for metastasis. The total dimension of the cancer appears to be around 1 cm. At the same time she had a separate issue Concerning her hemorrhoids and had a hemorrhoidectomy and sphincterotomy. Pathology for this showed focal high-grade squamous intraepithelial dysplasia at the squamocolumnar junction. has 1 son. Severe night sweats for several year no early satiety and no weight loss. Trying to quit smoking. - REVIEW OF SYSTEMS Per HPI and otherwise negative by full review of organ systems. - ECOG PERFOR (more content not included)... Normal [facility] Comprehensive metabolic 2000 panelon 06-21-2023 Albumin [Mass/Vol] 4.6 g/dL Normal 3.9-4.9 [facility] Comment on above: Order Comment: Speci men Type: BLOOD SPECIMEN Ordering Facility: [facility] Address: [address] [id number] Performed By: #### 2 4323-8 #### [facility] CLIA [id number] [address] [place] [address] 48243 ALP [Catalytic activity/Vol] 54 U/L Normal 34-123 [facility] Comment on above: Order Comment: Speci men Type: BLOOD SPECIMEN Ordering Facility: [facility] Address: [address] [place] [address] Performed By: #### 2 4323-8 #### [facility] IA [id number] [address] [place] [address] 71479 ALT [Catalytic activity/Vol] 21 U/L Normal 7-38 [facility] Comment on above: Order Comment: Speci men Type: BLOOD SPECIMEN Ordering Facility: [facility] Address: [address] [place] [address] Performed By: #### 2 4323-8 #### [facility] CLIA [id number] [address] [place] [address] Anion gap [Moles/Vol] 8 mmol/L Low 9-18 [facility] Comment on above: Order Comment: Speci men Type: BLOOD SPECIMEN Ordering Facility: [facility] Address: [address] [place], [place] [address] Performed By: #### 2 4323-8 #### [facility] CLIA [id number] [address] [place] [address] 16321 AST [Catalytic activity/Vol] 23 U/L Normal 13-35 [facility] Comment on above: Order Comment: Speci men Type: BLOOD SPECIMEN Ordering Facility: [facility] Address: [address] [place], [place] [address] Performed By: #### 2 4323-8 #### [facility] CLIA [id number] [address] [place] [address] 30424 Bilirubin [Mass/Vol] 0.5 mg/dL Normal 0.2-1.3 [facility] Comment on above: Order Comment: Speci men Type: BLOOD SPECIMEN Ordering Facility: [facility] Address: [address] [place] [address] Performed By: #### 2 4323-8 #### [facility] CLIA [id number] [address] [place] [address] 91067 Calcium [Mass/Vol] 9.5 mg/dL Normal 8.5-10.2 [facility] Comment on above: Order Comment: Speci men Type: BLOOD SPECIMEN Ordering Facility: [facility] Address: [address] [place] [address] Performed By: #### 2 4323-8 #### [facility] CLIA [id number] [address] [place] [address] 41145 Chloride [Moles/Vol] 104 mmol/L Normal 97-105 [facility] Comment on above: Order Comment: Speci men Type: BLOOD SPECIMEN Ordering Facility: [facility] Address: [address] [place] [address] Performed By: #### 2 4323-8 #### [facility] CLIA [id number] [address] [place] [address] CO2 [Moles/Vol] 28 mmol/L Normal 22-30 [facility] Comment on above: Order Comment: Speci men Type: BLOOD SPECIMEN Ordering Facility: [facility] Address: [address] [place] [address] Performed By: #### 2 4323-8 #### [facility] CLIA [id number] [address] [place] [address] 85185 Creatinine [Mass/Vol] 0.69 mg/dL Normal 0.58-0.96 [facility] Comment on above: Order Comment: Speci men Type: BLOOD SPECIMEN Ordering Facility: [facility] Address: [address] [place] [address] Performed By: #### 2 4323-8 #### [facility] CLIA [id number] [address] [place] [address] 09972 Creatinine and Glomerular filtration rate.predicted panel (S/P/Bld) 94 mL/min/1.73m??? Normal >=60 [facility] Comment on above: Order Comment: Speci men Type: BLOOD SPECIMEN Ordering Facility: [facility] Address: [address] [place] [address] Result Comment: Fara mated Glomerular Filtration Rate (eGFR) is calculated using the 2020 CKD-EPI creatinine equation. This equation utilizes serum creatinine, sex, and age as parameters. The creatinine assay has traceable calibration to isotope dilution-mass spectrometry. Refer to KDIGO guidelines for clinical interpretation. In patients with unstable renal function, e.g. those with acute kidney injury, the eGFR may not accurately reflect actual GFR. Performed By: #### 2 4323-8 #### [facility] CLIA [id number] [address] [place] [address] Glucose [Mass/Vol] 97 mg/dL Normal 74-99 [facility] Comment on above: Order Comment: Speci men Type: BLOOD SPECIMEN Ordering Facility: [facility] Address: [address] [place] [address] Result Comment: The [place] Diabetes Association (ADA) provides guidance for cutoff values for fasting glucose and random glucose. The ADA defines fasting as no caloric intake for at least 8 hours. Fasting plasma glucose results between 100 to 125 mg/dL indicate increased risk for diabetes (prediabetes). Fasting plasma glucose results greater than or equal to 126 mg/dL meet the criteria for diagnosis of diabetes. In the absence of unequivocal hyperglycemia, results should be confirmed by repeat testing. In a patient with classic symptoms of hyperglycemia or hyperglycemic crisis, random plasma glucose results greater than or equal to 200 mg/dL meet the criteria for diagnosis of diabetes. Reference: Standards of Medical Care in Diabetes 2016, [place] Diabetes Association. Diabetes Care. 2016.39(Suppl 1). Performed By: #### 2 4323-8 #### [facility] CLIA [id number] [address] [place] [address] Potassium [Moles/Vol] 4.3 mmol/L Normal 3.7-5.1 [facility] Comment on above: Order Comment: Nicky liriano Type: BLOOD SPECIMEN Ordering Facility: [facility] Address: [address] [place] [address] Performed By: #### 2 4323-8 #### [facility] CLIA [id number] [address] [place] [address] Protein [Mass/Vol] 6.9 g/dL Normal 6.3-8.0 [facility] Comment on above: Order Comment: Nicky men Type: BLOOD SPECIMEN Ordering Facility: [facility] Address: [address] [place] [address] Performed By: #### 2 4323-8 #### [facility] CLIA [id number] [address] [place] [address] 11142 Sodium [Moles/Vol] 140 mmol/L Normal 136-144 [facility] Comment on above: Order Comment: Nicky men Type: BLOOD SPECIMEN Ordering Facility: [facility] Address: [address] [place], [place] [address] Performed By: #### 2 4323-8 #### [facility] CLIA [id number] [address] [place] [address] 11237 Urea nitrogen [Mass/Vol] 15 mg/dL Normal 7-21 [facility] Comment on above: Order Comment: Speci men Type: BLOOD SPECIMEN Ordering Facility: [facility] Address: [address] [place] [address] Performed By: #### 2 4323-8 #### [facility] CLIA [id number] [address] [place] [address] 58900 CBC W Auto Differential pane l (Bld)on 07-06-2022 Basophils (Bld) [#/Vol] 0.06 10*3/uL Normal <0.11 [facility] Comment on above: Order Comment: Speci men Type: BLOOD SPECIMEN Ordering Facility: [facility] Address: [address] [address] Performed By: #### 5 7021-8 #### [facility] CLIA [id number] [address] [place] [address] 41336 Basophils/100 WBC (Bld) 0.9 % Normal [facility] Comment on above: Order Comment: Speci men Type: BLOOD SPECIMEN Ordering Facility: [facility] Address: [address] [address] Performed By: #### 5 7021-8 #### [facility] CLIA [id number] [address] [place] [address] 60399 Differential cell count method Nom (Bld) Auto Normal [facility] Comment on above: Order Comment: Speci men Type: BLOOD SPECIMEN Ordering Facility: [facility] Address: [address] Performed By: #### 5 7021-8 #### [facility] CLIA [id number] [address] [place] [address] 04849 Eosinophils (Bld) [#/Vol] 0.13 10*3/uL Normal <0.46 [facility] Comment on above: Order Comment: Speci men Type: BLOOD SPECIMEN Ordering Facility: [facility] Address: [address] [address] Performed By: #### 5 7021-8 #### [facility] CLIA [id number] [address] [place] [address] 94895 Eosinophils/100 WBC (Bld) 1.9 % Normal [facility] Comment on above: Order Comment: Speci men Type: BLOOD SPECIMEN Ordering Facility: [facility] Address: [address] [address] Performed By: #### 5 7021-8 #### [facility] CLIA [id number] [address] [place] [address] 76514 Erythrocyte distribution width (RBC) [Ratio] 12.7 % Normal 11.5-15.0 [facility] Comment on above: Order Comment: Speci men Type: BLOOD SPECIMEN Ordering Facility: [facility] Address: [address] [address] Performed By: #### 5 7021-8 #### [facility] CLIA [id number] [address] [place] [address] 27794 Hematocrit (Bld) [Volume fraction] 41.9 % Normal 36.0-46.0 [facility] Comment on above: Order Comment: Speci men Type: BLOOD SPECIMEN Ordering Facility: [facility] Address: [address] [address] Performed By: #### 5 7021-8 #### [facility] CLIA [id number] [address] [place] [address] 75981 Hemoglobin (Bld) [Mass/Vol] 13.5 g/dL Normal 11.5-15.5 [facility] Comment on above: Order Comment: Speci men Type: BLOOD SPECIMEN Ordering Facility: [facility] Address: [address] [address] Performed By: #### 5 7021-8 #### [facility] CLIA [id number] [address] [place] [address] 32081 Immature granulocytes (Bld) [#/Vol] 10*3/uL Normal <0.10 [facility] Comment on above: Order Comment: Speci men Type: BLOOD SPECIMEN Ordering Facility: [facility] Address: [address] [address] Performed By: #### 5 7021-8 #### [facility] CLIA [id number] [address] [place] [address] 84406 Immature granulocytes/100 WBC (Bld) 0.3 % Normal [facility] Comment on above: Order Comment: Speci men Type: BLOOD SPECIMEN Ordering Facility: [facility] Address: [address] [address] Performed By: #### 5 7021-8 #### [facility] CLIA [id number] [address] [place] [address] 85076 Lymphocytes (Bld) [#/Vol] 2.86 10*3/uL Normal 1.00-4.00 [facility] Comment on above: Order Comment: Speci men Type: BLOOD SPECIMEN Ordering Facility: [facility] Address: [address] [address] Performed By: #### 5 7021-8 #### [facility] CLIA [id number] [address] [place] [address] 46347 Lymphocytes/100 WBC (Bld) 41.6 % Normal [facility] Comment on above: Order Comment: Speci men Type: BLOOD SPECIMEN Ordering Facility: [facility] Address: [address] [address] Performed By: #### 5 7021-8 #### [facility] CLIA [id number] [address] [place] [address] 61968 MCH (RBC) [Entitic mass] 31.5 pg Normal 26.0-34.0 [facility] Comment on above: Order Comment: Speci men Type: BLOOD SPECIMEN Ordering Facility: [facility] Address: [address] [address] Performed By: #### 5 7021-8 #### [facility] CLIA [id number] [address] [place] [address] 78587 MCHC (RBC) [Mass/Vol] 32.2 g/dL Normal 30.5-36.0 [facility] Comment on above: Order Comment: Speci men Type: BLOOD SPECIMEN Ordering Facility: [facility] Address: [address] [place] [address] Performed By: #### 5 7021-8 #### [facility] CLIA [id number] [address] [place] [address] 35384 MCV (RBC) [Entitic vol] 97.9 fL Normal 80.0-100.0 [facility] Comment on above: Order Comment: Speci men Type: BLOOD SPECIMEN Ordering Facility: [facility] Address: [address] [place] [address] Performed By: #### 5 7021-8 #### [facility] CLIA [id number] [address] [place] [address] 22803 Monocytes (Bld) [#/Vol] 0.50 10*3/uL Normal <0.87 [facility] Comment on above: Order Comment: Speci men Type: BLOOD SPECIMEN Ordering Facility: [facility] Address: [address] [place] [address] Performed By: #### 5 7021-8 #### [facility] CLIA [id number] [address] [place] [address] 92880 Monocytes/100 WBC (Bld) 7.3 % Normal [facility] Comment on above: Order Comment: Speci men Type: BLOOD SPECIMEN Ordering Facility: [facility] Address: [address] [place] [address] Performed By: #### 5 7021-8 #### [facility] CLIA [id number] [address] [place] [address] 41593 Neutrophils (Bld) [#/Vol] 3.30 10*3/uL Normal 1.45-7.50 [facility] Comment on above: Order Comment: Speci men Type: BLOOD SPECIMEN Ordering Facility: [facility] Address: [address] [address] Performed By: #### 5 7021-8 #### [facility] CLIA [id number] [address] [place] [address] 31654 Neutrophils/100 WBC (Bld) 48.0 % Normal [facility] Comment on above: Order Comment: Speci men Type: BLOOD SPECIMEN Ordering Facility: [facility] Address: [address] [address] Performed By: #### 5 7021-8 #### [facility] CLIA [id number] [address] [place] [address] 34399 Nucleated RBC (Bld) [#/Vol] 10*3/uL Normal <0.01 [facility] Comment on above: Order Comment: Speci men Type: BLOOD SPECIMEN Ordering Facility: [facility] Address: [address] [address] Performed By: #### 5 7021-8 #### [facility] CLIA [id number] [address] [place] [address] 76629 Nucleated RBC/100 WBC (Bld) [Ratio] 0.0 /100 WBC Normal [facility] Comment on above: Order Comment: Speci men Type: BLOOD SPECIMEN Ordering Facility: [facility] Address: [address] [address] Performed By: #### 5 7021-8 #### [facility] CLIA [id number] [address] [place] [address] 75348 Platelet mean volume (Bld) [Entitic vol] 10.1 fL Normal 9.0-12.7 [facility] Comment on above: Order Comment: Speci men Type: BLOOD SPECIMEN Ordering Facility: [facility] Address: [address] [address] Performed By: #### 5 7021-8 #### [facility] CLIA [id number] [address] [place] [address] 78338 Platelets (Bld) [#/Vol] 257 10*3/uL Normal 150-400 [facility] Comment on above: Order Comment: Speci men Type: BLOOD SPECIMEN Ordering Facility: [facility] Address: [address] [place] [address] Performed By: #### 5 7021-8 #### [facility] CLIA [id number] [address] [place] [address] 58681 RBC (Bld) [#/Vol] 4.28 10*6/uL Normal 3.90-5.20 [facility] Comment on above: Order Comment: Speci men Type: BLOOD SPECIMEN Ordering Facility: [facility] Address: [address] [place] [address] Performed By: #### 5 7021-8 #### [facility] CLIA [id number] [address] [place] [address] WBC (Bld) [#/Vol] 6.87 10*3/uL Normal 3.70-11.00 [facility] Comment on above: Order Comment: Speci men Type: BLOOD SPECIMEN Ordering Facility: [facility] Address: [address] [place] [address] Performed By: #### 5 7021-8 #### [facility] CLIA [id number] [address] [place] [address] 00032 CNOVSPon 07-06-2022 OVS Visit (SP) Office ([place]) FATOU TAYLOR ([id number]) 1955 F Date Time Provider Department 07/06/22 1:30 PM JOEY MONTEJO During your visit today, we recorded the following information about you: Temperature Pulse Respiration Blood pressure 97.8 degrees 63/minute 16/minute 134/64 Weight 69.5 kg Joey Montejo MD 07/09/2022 4:35 PM Signed NAME: Fatou Taylor CLINIC NO.: [id number] DATE OF SERVICE: July 06, 2022 ([place]) Some elements in this clinic note that are critical to medical decision making have been carefully reviewed and included from a prior clinic note dated: January 05, 2022 ([place]) Referring Provider: Dr. Ruvalcaba Additional Clinicians involved in Fatou Taylor's care: CC: Follow-up for breast cancer. ASSESSMENT: This is a 66 year old woman with early stage left breast infiltrating ductal grade 2 cancer ER/NV positive HER-2/connie negative status post lumpectomy with axillary rhiannon dissection followed by radiation and adjuvant estrogen suppression in 2015. She was having severe night sweats on Arimidex and have been getting worse over the past couple years so we stopped Arimidex but symptoms didn't resolve so continued until recently Prior history of hemorrhoidectomy with findings of high-grade squamous intraepithelial dysplasia - 2016. PLAN: Zometa today then discontinue RTC 12 months 1-2 weeks after Mammography - labs same day repeat exam - 30 mins Consider DXA to see if we need more Zometa. HPI: Updated Visit, July 06, 2022: Fatou reports left arm pain - may have some symptom relief with lymphedema specialist although I could not feel much edema. 06/09/2022 Mammo screening BiRads 2. Updated Visit, January 05, 2022: Moved back from [place] couldn't cope and was getting depressed. Mammograms done last June. Bone density up to date. Labs stable. Will obtain mammograms in June 2022 in addition to Zometa. When she returns after mammograms I will see her and examine her. She elected to stop Arimidex having completed approximately 5-6 years. Updated Visit, October 21, 2020: 65 yo woman with left ER + breast cancer. 08/18/2020 Mammograms Birads-2 Relapsed with smoking but is trying to quit again. Breast exam unchanged. Continue taking Hi + Vit D. Needs surveillance for high-grade squamous intraepithelial dysplasia Updated Visit, March 18, 2020: Fatou is a 64-year-old woman with a prior history of early stage left breast cancer and had been on Arimidex since late 2015. She had complained of worsening sweats And so we had her hold the Arimide for 1 month. She returns today and has had no change off of Arimidex so will restart it. She has quit smoking and it's possible that sweats are from her body's enhanced response to her lung inflammation and trying to clear this. Initial Visit, February 12, 2020: Fatou is a 64-year-old woman with a prior history of early stage left breast cancer currently on Arimidex since late 2015. She has been followed up [facility] cancer center in [place] but is transferring her care here. Historically, she presented July of 2015 in consultation with an early stage breast cancer. ` For a workup of a breast mass on mammography she was taken to stereotactic biopsy June 25, 2015 with the findings of a 0.5 cm grade 2 breast cancer on the left. The cancer was ER and NV positive and HER 2 negative. The patient was then taken back for lumpectomy and axillary node dissection. Pathology showed a 0.5 cm grade 2 breast cancer with 1 sentinel lymph node negative for metastasis. The total dimension of the cancer appears to be around 1 cm. At the same time she had a separate issue Concerning her hemorrhoids and had a hemorrhoidectomy and sphincterotomy. Pathology for this showed focal high-grade squamous intraepithelial dysplasia at the squamocolumnar junction. has 1 son. Severe night sweats for several year no early satiety and no weight loss. Trying to quit smoking. REVIEW OF SYSTEMS Per HPI and otherwise negative by full review of organ systems. ECOG PERFORMANCE STATUS: 0 PHYSICAL EXAMINATION: Vitals: BP 134/64 Pulse 63 Temp (Src) 97.8 (Temporal) Resp 16 Wt 153 lb 3.2 oz (69.5kg) SpO2 98% Body surface area is 1.75 meters squared. Exam limited to gross visualization where appropriate. Gen.: This is an age-appropriate patient in no acute distress. Head: Appears atraumatic with no visible lesions. Eyes: Pupils equally round and reactive to light, extraocular muscles are intact. Neck: Supple. Respiratory: Appears to be respiring comfortably. Neurologic: Nonfocal to gross visualization. Alert and oriented ?3. Psychiatric: No evidence of inappropriate anxiety or depression. Skin: Visible areas of skin without rash, lesions, wounds or petechiae. Lymph node exam: No appreciable lymphadenopathy in c (more content not included)... Normal [facility] Comprehensive metabolic 2000 panelon 07-06-2022 Albumin [Mass/Vol] 4.6 g/dL Normal 3.9-4.9 [facility] Comment on above: Order Comment: Speci men Type: BLOOD SPECIMEN Ordering Facility: [facility] Address: [address] [address] Performed By: #### 2 4323-8 #### [facility] CLIA [id number] [address] [place] [address] 23765 ALP [Catalytic activity/Vol] 51 U/L Normal 34-123 [facility] Comment on above: Order Comment: Speci men Type: BLOOD SPECIMEN Ordering Facility: [facility] Address: [address] [place] [address] Performed By: #### 2 4323-8 #### [facility] CLIA [id number] [address] [place] [address] 93787 ALT [Catalytic activity/Vol] 18 U/L Normal 7-38 [facility] Comment on above: Order Comment: Speci men Type: BLOOD SPECIMEN Ordering Facility: [facility] Address: [address] [place] [address] Performed By: #### 2 4323-8 #### [facility] CLIA [id number] [address] [place] [address] 91597 Anion gap [Moles/Vol] 7 mmol/L Low 9-18 [facility] Comment on above: Order Comment: Speci men Type: BLOOD SPECIMEN Ordering Facility: [facility] Address: [address] [address] Performed By: #### 2 4323-8 #### [facility] CLIA [id number] [address] [place] [address] 54932 AST [Catalytic activity/Vol] 20 U/L Normal 13-35 [facility] Comment on above: Order Comment: Speci men Type: BLOOD SPECIMEN Ordering Facility: [facility] Address: [address] [place], [place] [address] Performed By: #### 2 4323-8 #### [facility] CLIA [id number] [address] [place] [address] Bilirubin [Mass/Vol] 0.6 mg/dL Normal 0.2-1.3 [facility] Comment on above: Order Comment: Speci men Type: BLOOD SPECIMEN Ordering Facility: [facility] Address: [address] [address] Performed By: #### 2 4323-8 #### [facility] CLIA [id number] [address] [place] [address] 08447 Calcium [Mass/Vol] 9.6 mg/dL Normal 8.5-10.2 [facility] Comment on above: Order Comment: Speci men Type: BLOOD SPECIMEN Ordering Facility: [facility] Address: [address] [address] Performed By: #### 2 4323-8 #### [facility] CLIA [id number] [address] [place] [address] 80894 Chloride [Moles/Vol] 104 mmol/L Normal 97-105 [facility] Comment on above: Order Comment: Speci men Type: BLOOD SPECIMEN Ordering Facility: [facility] Address: [address] [address] Performed By: #### 2 4323-8 #### [facility] CLIA [id number] [address] [place] [address] 89644 CO2 [Moles/Vol] 27 mmol/L Normal 22-30 [facility] Comment on above: Order Comment: Speci men Type: BLOOD SPECIMEN Ordering Facility: [facility] Address: [address] [address] Performed By: #### 2 4323-8 #### [facility] CLIA [id number] [address] [place] [address] 04816 Creatinine [Mass/Vol] 0.63 mg/dL Normal 0.58-0.96 [facility] Comment on above: Order Comment: Nicky liriano Type: BLOOD SPECIMEN Ordering Facility: [facility] Address: [address] [place] [address] Performed By: #### 2 4323-8 #### [facility] CLIA [id number] [address] [place] [address] 76486 ESTIMATED GLOMERULAR FILTRATION RATE 97 mL/min/1.73m??? Normal >=60 [facility] Comment on above: Order Comment: Nicky liriano Type: BLOOD SPECIMEN Ordering Facility: [facility] Address: [address] [place] [address] Result Comment: Fara mated Glomerular Filtration Rate (eGFR) is calculated using the 2020 CKD-EPI creatinine equation. This equation utilizes serum creatinine, sex, and age as parameters. The creatinine assay has traceable calibration to isotope dilution-mass spectrometry. Refer to KDIGO guidelines for clinical interpretation. In patients with unstable renal function, e.g. those with acute kidney injury, the eGFR may not accurately reflect actual GFR. Performed By: #### 2 4323-8 #### [facility] CLIA [id number] [address] [place] [address] 98322 Glucose [Mass/Vol] 103 mg/dL High 74-99 [facility] Comment on above: Order Comment: Nicky liriano Type: BLOOD SPECIMEN Ordering Facility: [facility] Address: [address] [place] [address] Result Comment: The Citizen [place] Diabetes Association (ADA) provides guidance for cutoff values for fasting glucose and random glucose. The ADA defines fasting as no caloric intake for at least 8 hours. Fasting plasma glucose results between 100 to 125 mg/dL indicate increased risk for diabetes (prediabetes). Fasting plasma glucose results greater than or equal to 126 mg/dL meet the criteria for diagnosis of diabetes. In the absence of unequivocal hyperglycemia, results should be confirmed by repeat testing. In a patient with classic symptoms of hyperglycemia or hyperglycemic crisis, random plasma glucose results greater than or equal to 200 mg/dL meet the criteria for diagnosis of diabetes. Reference: Standards of Medical Care in Diabetes 2016, Citizen [place] Diabetes Association. Diabetes Care. 2016.39(Suppl 1). Performed By: #### 2 4323-8 #### [facility] CLIA [id number] [address] [place] [address] Potassium [Moles/Vol] 4.4 mmol/L Normal 3.7-5.1 [facility] Comment on above: Order Comment: Speci men Type: BLOOD SPECIMEN Ordering Facility: [facility] Address: [address] [place] [address] Performed By: #### 2 4323-8 #### [facility] CLIA [id number] [address] [place] [address] 02271 Protein [Mass/Vol] 6.8 g/dL Normal 6.3-8.0 [facility] Comment on above: Order Comment: Speci men Type: BLOOD SPECIMEN Ordering Facility: [facility] Address: [address] [place] [address] Performed By: #### 2 4323-8 #### [facility] CLIA [id number] [address] [place] [address] 73853 Sodium [Moles/Vol] 138 mmol/L Normal 136-144 [facility] Comment on above: Order Comment: Speci men Type: BLOOD SPECIMEN Ordering Facility: [facility] Address: [address] [place] [address] Performed By: #### 2 4323-8 #### [facility] CLIA [id number] [address] [place] [address] 44741 Urea nitrogen [Mass/Vol] 15 mg/dL Normal 7-21 [facility] Comment on above: Order Comment: Speci men Type: BLOOD SPECIMEN Ordering Facility: [facility] Address: [address] [place] [address] Performed By: #### 2 4323-8 #### [facility] CLIA [id number] [address] [place] [address] 91472 MG MAMM SCREEN 3D LEONOR CADon 06-09-2022 MG MAMM SCREEN 3D LEONOR CAD Patient: FATOU TAYLORLigia Exam Date: 06/09/2022 : 1955 Gender:F Ordering : DR. JOEY MONTEJO M.D. Admission #: [id number] Family : DR CECILIO PATEL M.D. Order #: [id number] CLICK HERE TO VIEW EXAM RADIOLOGY REPORT PROCEDURE: MAMMOGRAM SCREENING 3D BILATERAL CAD COMPARISON: MG MAMM SCREEN 3D LEONOR CAD, 08/18/2020. MG MAMM LEONOR DIAG W CAD, 08/19/2019. MG MAMM LEONOR SCRN W CAD DIG, 07/05/2018. DIGITIZED_MAMMO, 11/12/2008. INDICATIONS: Screening mammography Calculator Name [facility] Breast Cancer Risk Assessment Tool 5 Year Breast Cancer Risk n/a% Lifetime Breast Cancer Risk n/a% Personal Breast Cancer Yes, 5-16 Personal Ovarian Cancer No Treatments lumpectomy, radiation Family Cancers Aunt-maternal with breast cancer at age 60; Nephew with pancreatic cancer at age 39; Father with prostate cancer at age 70; Grandfather-paternal with prostate cancer at age 70. LOCATION: [facility] BREAST COMPOSITION: Scattered areas fibroglandular density. FINDINGS: DIAGNOSTIC CATEGORY 2--BENIGN FINDING: RIGHT BREAST: No significant suspicious finding. No significant change has occurred. LEFT BREAST: No significant suspicious finding. Stable surgical clips within the posterior upper-outer quadrant and stable chronic asymmetry within the anterior upper-outer quadrant. No significant change has occurred. RECOMMENDATIONS: ROUTINE MAMMOGRAM AND CLINICAL EVALUATION IN 12 MONTHS. PLEASE NOTE: A NORMAL MAMMOGRAM DOES NOT EXCLUDE THE POSSIBILITY OF BREAST CANCER. A CLINICALLY SUSPICIOUS PALPABLE LUMP SHOULD BE BIOPSIED. Dictated by: Leo Coyle M.D. on 06/12/2022 at 12:07 Approved by: Leo Coyle M.D. on 06/12/2022 at 12:09 Normal [facility] 05-15-2022 L - -------- Specimen: [id number] Received: 05/15/22 Status: PO Rees Num: [id number] Spec Type: Surgical Subm Dr: Santy Naranjo MD Tissues: A Esophagus Biopsy (ESOPHAGUS) Procedures: HE/2, Gross/Micro L4 -------- Age/ Patient Sex Location Account Attending Physician -------- Fatou Taylor 66/F [id number] Santy Naranjo MD -------- SPEC NUM: [id number] RECD: 05/15/22 STATUS: PO REES NUM: [id number] GEORGE: 05/15/22- [facility] DR: Santy Naranjo MD ENTERED: 05/15/[address] [facility] [address]: SPEC TYPE: Surgical DEPT: S ORDERED: HE/2, Gross/Micro L4 ORDERED: HE/2, Gross/Micro L4 Pathological Diagnosis Esophagus, biopsy: - 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 - Negative for dysplasia. Clinical Information Rule out Garcia's Gross Description Received in formalin labeled with the patient's name, number and esophagus rule out Garcia's are two fragments of soft harden tissue measuring 0.3 x 0.2 x 0.1 cm and 0.3 x 0.3 x 0.1 cm. Entirely submitted in one cassette labeled A1. Microscopic Description Two glass slides with H E stained material have been examined. The microscopic findings support the above pathologic diagnosis. CPT Codes 81475 -------- -------- Specimen: [id number] Received: 05/15/22 Status: PO Cabrera Num: [id number] Spec Type: Surgical Subm Dr: Santy Naranjo MD Tissues: A Esophagus Biopsy (ESOPHAGUS) Procedures: HE/Dorothy, Gross/Micro L4 -------- Patient: Fatou Taylor [id number] (Continued) -------- Signed (signature on file) Niurka Laguerre MD 05/16/22 1004 [facility] US SINGLE QUAD RT UPPERon US SINGLE QUAD RT UPPER EXAM: US SINGLE QUAD RT UPPER HISTORY: . Right upper quadrant pain . COMPARISON: None. TECHNIQUE: Grayscale and color imaging was performed FINDINGS: The pancreas appears normal. The liver is normal in size. No masses or biliary dilatation is noted. Color-flow is noted in the portal and hepatic veins. Common bile duct measures 2 mm. The gallbladder appears normal with no stones or sludge identified. No gallbladder wall thickening is noted. Right kidney measures 9.6 x 4.6 x 3.4 cm. Color-flow is noted. No solid renal cortical masses or hydronephrosis is noted. No fluid is noted in the right upper quadrant. IMPRESSION: Normal ultrasound of the right upper quadrant. Electronically authenticated by: OLIVER [place] Date: 2022-05-13 08:29 Normal [facility] CT LUNG CANCER SCREENINGon 0 04-11-2022 CT LUNG CANCER SCREENING EXAMINATION: CT LUNG CANCER SCREENING HISTORY: Tobacco dependence caused by cigarettes COMPARISON: CT chest 10/30/2020 TECHNIQUE: Axial, Coronal, and Sagittal images were created without the administration of IV contrast material. Dose reduction techniques were achieved by using automated exposure control and/or adjustment of mA and/or kV according to patient size and/or use of iterative reconstruction technique. FINDINGS: LUNGS: Stable appearance of a few scattered small nodules, largest is 5 mm within the lateral left lung base/lingula. Stable scattered mild pleural scarring. PLEURA: No mass, effusion, or pneumothorax. VASCULATURE: No abnormality. SUSSY: No mass or pathologic adenopathy. MEDIASTINUM: No mass or pathologic adenopathy. CARDIAC: No enlargement, pericardial thickening, or significant calcification. AORTA: No aneurysm or dissection. CHEST WALL: No mass or axillary adenopathy BONES: No bone lesion or fracture. LIMITED ABDOMEN: No suspicious findings. Limited images of the upper abdomen. OTHER: Negative. IMPRESSION: 1. Lung-RADS 2- Benign Appearance or Behavior. Nodules with a very low likelihood of becoming a clinically active cancer due to size or lack of growth. Follow-up CT Chest in 1 year. Electronically authenticated by: LEO COYLE Date: 2022-04-11 16:07 Normal [facility] CT LUMBAR SPINE W CONTRASTon 02-12-2019 CT LUMBAR SPINE W CONTRAST CT lumbar myelography. HISTORY: Lumbar spondylosis, lumbar disc herniation, spinal stenosis, lumbar region with neurogenic claudication, pseudoarthrosis, lumbar spine. Technical factors: CT imaging lumbar spine obtained and formatted as 2.5 mm contiguous axial images from T12-L1 to the sacrum. Sagittal coronal reconstruction obtained during postprocessing. Study performed following conventional myelography, reported separately. No prior CT images, lumbar spine, available for comparison. FINDINGS: Lumbar vertebral bodies are normal in height and alignment. Intervertebral disc space device is identified at L4-5, and L5-S1. Remote L4, L5 laminectomy posterior internal fixation, L4-S1. Diffuse disc space narrowing with anterior osteophytes, L2-L3. No fracture, no bone lesion. At the T12-L1 level, no central stenosis. No neural foraminal stenosis. Mild facet hypertrophy. At the L1-L2 level, no central stenosis. No neural foraminal stenosis. Mild facet hypertrophy. At the L2-L3 level, diffuse disc bulge, with left paramedian protrusion encroaching upon exiting L3 nerve root. No central stenosis. Mild facet hypertrophy. At the L3-L4 level, no central stenosis. No neural foraminal stenosis. Mild facet hypertrophy. The L4-L5 level, imaging limited secondary to beam hardening artifact from internal fixation. No central stenosis. No neural foraminal stenosis. Mild facet hypertrophy. At the L5-S1 level, central, and no neural foraminal stenosis is identified. IMPRESSION: Intravertebral disc space device, L4-5, and L5-S1. Posterior internal fixation by paired pedicle screws at the L4, L5, and S1 levels. Diffuse disc space narrowing with anterior osteophytes L2-L3 with diffuse disc bulge and left paramedian protrusion, extending into left neural foramina, and encroaching upon nerve root. No central stenosis identified. All CT scans at this facility use dose modulation, iterative reconstruction, and/or weight based dosing when appropriate to reduce radiation dose to as low as reasonably achievable. Interpreted by: Cristobal Dumont MD Signed by: Cristobal Dumont MD 1/8/20 Final result Normal [facility] CT Lumbar Spine W ContrastOr dered By: Willard Olmstead on 02-12-2019 Intravertebral disc space device, L4-5, and L5-S1. Posterior internal fixation by paired pedicle screws at the L4, L5, and S1 levels. Diffuse disc space narrowing with anterior osteophytes L2-L3 with diffuse disc bulge and left paramedian protrusion, extending into left neural foramina, and encroaching upon nerve root. No central stenosis identified. All CT scans at this facility use dose modulation, iterative reconstruction, and/or weight based dosing when appropriate to reduce radiation dose to as low as reasonably achievable. [employer] Phone: CT lumbar myelography. HISTORY: Lumbar spondylosis, lumbar disc herniation, spinal stenosis, lumbar region with neurogenic claudication, pseudoarthrosis, lumbar spine. Technical factors: CT imaging lumbar spine obtained and formatted as 2.5 mm contiguous axial images from T12-L1 to the sacrum. Sagittal coronal reconstruction obtained during postprocessing. Study performed following conventional myelography, reported separately. No prior CT images, lumbar spine, available for comparison. FINDINGS: Lumbar vertebral bodies are normal in height and alignment. Intervertebral disc space device is identified at L4-5, and L5-S1. Remote L4, L5 laminectomy posterior internal fixation, L4-S1. Diffuse disc space narrowing with anterior osteophytes, L2-L3. No fracture, no bone lesion. At the T12-L1 level, no central stenosis. No neural foraminal stenosis. Mild facet hypertrophy. At the L1-L2 level, no central stenosis. No neural foraminal stenosis. Mild facet hypertrophy. At the L2-L3 level, diffuse disc bulge, with left paramedian protrusion encroaching upon exiting L3 nerve root. No central stenosis. Mild facet hypertrophy. At the L3-L4 level, no central stenosis. No neural foraminal stenosis. Mild facet hypertrophy. The L4-L5 level, imaging limited secondary to beam hardening artifact from internal fixation. No central stenosis. No neural foraminal stenosis. Mild facet hypertrophy. At the L5-S1 level, central, and no neural foraminal stenosis is identified. [employer] Phone: Jimenez, Chpo Incoming Radiant Results From [facility] - 02/12/2019 10:[address] lumbar myelography. HISTORY: Lumbar spondylosis, lumbar disc herniation, spinal stenosis, lumbar region with neurogenic claudication, pseudoarthrosis, lumbar spine. Technical factors: CT imaging lumbar spine obtained and formatted as 2.5 mm contiguous axial images from T12-L1 to the sacrum. Sagittal coronal reconstruction obtained during postprocessing. Study performed following conventional myelography, reported separately. No prior CT images, lumbar spine, available for comparison. FINDINGS: Lumbar vertebral bodies are normal in height and alignment. Intervertebral disc space device is identified at L4-5, and L5-S1. Remote L4, L5 laminectomy posterior internal fixation, L4-S1. Diffuse disc space narrowing with anterior osteophytes, L2-L3. No fracture, no bone lesion. At the T12-L1 level, no central stenosis. No neural foraminal stenosis. Mild facet hypertrophy. At the L1-L2 level, no central stenosis. No neural foraminal stenosis. Mild facet hypertrophy. At the L2-L3 level, diffuse disc bulge, with left paramedian protrusion encroaching upon exiting L3 nerve root. No central stenosis. Mild facet hypertrophy. At the L3-L4 level, no central stenosis. No neural foraminal stenosis. Mild facet hypertrophy. The L4-L5 level, imaging limited secondary to beam hardening artifact from internal fixation. No central stenosis. No neural foraminal stenosis. Mild facet hypertrophy. At the L5-S1 level, central, and no neural foraminal stenosis is identified. IMPRESSION: Intravertebral disc space device, L4-5, and L5-S1. Posterior internal fixation by paired pedicle screws at the L4, L5, and S1 levels. Diffuse disc space narrowing with anterior osteophytes L2-L3 with diffuse disc bulge and left paramedian protrusion, extending into left neural foramina, and encroaching upon nerve root. No central stenosis identified. All CT scans at this facility use dose modulation, iterative reconstruction, and/or weight based dosing when appropriate to reduce radiation dose to as low as reasonably achievable. [employer] Work Phone: FL MYELOGRAM LUMBOSACRAL S A ND Ion 02-12-2019 FL MYELOGRAM LUMBOSACRAL S AND I FLUOROSCOPICALLY GUIDED LUMBAR MYELOGRAM. CLINICAL HISTORY: LUMBAR SPONDYLOSIS, LUMBAR DISC HERNIATION, SPINAL STENOSIS, LUMBAR REGION. CLAUDICATION, PSEUDOARTHROSIS LUMBAR SPINE. The risks, benefits, and alternatives were explained to the patient. All questions were answered. Verbal and written consent was obtained. Patient was brought to the fluoroscopy suite, and placed on the table in the prone position. No consolidating sponge was placed at the level the patient's abdomen. A pre-procedure time out was performed in order to assure the correct patient and procedure Fluoroscopic examination was performed to evaluate optimal access route. Patient has undergone placement of intravertebral disc space devices at the L4-5 and L5-S1 levels. Paired posteriorly placed pedicle screws, secured to a pair of vertically oriented rods identified at L4 and L5. Internal fixation using a screw at the L4 level is identified. Posteriorly placed screws are also visualized at the S1 level. Lower lumbar spine region was sterilely prepared using sterile barrier technique which includes sterile gloves, sterile body drape, hand hygiene and 2% chlorhexidine for cutaneous antisepsis. 2% Xylocaine was used for local anesthesia. A 22-gauge spinal needle was advanced under fluoroscopic guidance at the L5 level. Clear cerebral spinal fluid was obtained on first pass. Under fluoroscopic guidance, 15 mL of Isovue-300 was slowly infused into the thecal sac. The cannula was reinserted, and the spinal needle removed. Hemostasis was achieved. A dry sterile dressing was applied. Imaging was obtained in the AP, as well as bilateral shallow and steep right and left obliques positions. Standing neutral, flexion, and extension views were also obtained. The patient tolerated the procedure well. There were no complications. The patient left the fluoroscopy suite in stable condition, and was immediately transported to the CT suite. Number of films: 8. Fluoroscopy time: 1.8 minutes. IMPRESSION: Conventional lumbar myelography, prior to CT lumbar myelogram as described. Interpreted by: Cristobal Dumont MD Signed by: Cristobal Dumont MD 02/12/19 Final result Normal [facility] FL MYELOGRAM LUMBOSACRAL S&I Ordered By: Willard Olmstead on 02-12-2019 Conventional lumbar myelography, prior to CT lumbar myelogram as described. [facility] [employer] Work Phone: FLUOROSCOPICALLY GUIDED LUMBAR MYELOGRAM. CLINICAL HISTORY: LUMBAR SPONDYLOSIS, LUMBAR DISC HERNIATION, SPINAL STENOSIS, LUMBAR REGION. CLAUDICATION, PSEUDOARTHROSIS LUMBAR SPINE. The risks, benefits, and alternatives were explained to the patient. All questions were answered. Verbal and written consent was obtained. Patient was brought to the fluoroscopy suite, and placed on the table in the prone position. No consolidating sponge was placed at the level the patient's abdomen. A pre-procedure time out was performed in order to assure the correct patient and procedure Fluoroscopic examination was performed to evaluate optimal access route. Patient has undergone placement of intravertebral disc space devices at the L4-5 and L5-S1 levels. Paired posteriorly placed pedicle screws, secured to a pair of vertically oriented rods identified at L4 and L5. Internal fixation using a screw at the L4 level is identified. Posteriorly placed screws are also visualized at the S1 level. Lower lumbar spine region was sterilely prepared using sterile barrier technique which includes sterile gloves, sterile body drape, hand hygiene and 2% chlorhexidine for cutaneous antisepsis. 2% Xylocaine was used for local anesthesia. A 22-gauge spinal needle was advanced under fluoroscopic guidance at the L5 level. Clear cerebral spinal fluid was obtained on first pass. Under fluoroscopic guidance, 15 mL of Isovue-300 was slowly infused into the thecal sac. The cannula was reinserted, and the spinal needle removed. Hemostasis was achieved. A dry sterile dressing was applied. Imaging was obtained in the AP, as well as bilateral shallow and steep right and left obliques positions. Standing neutral, flexion, and extension views were also obtained. The patient tolerated the procedure well. There were no complications. The patient left the fluoroscopy suite in stable condition, and was immediately transported to the CT suite. Number of films: 8. Fluoroscopy time: 1.8 minutes. [employer] Work Phone: Jimenez dagoberto Incoming Radiant Results From [facility] [employer] - 02/12/2019 10:20 AM EST FLUOROSCOPICALLY GUIDED LUMBAR MYELOGRAM. CLINICAL HISTORY: LUMBAR SPONDYLOSIS, LUMBAR DISC HERNIATION, SPINAL STENOSIS, LUMBAR REGION. CLAUDICATION, PSEUDOARTHROSIS LUMBAR SPINE. The risks, benefits, and alternatives were explained to the patient. All questions were answered. Verbal and written consent was obtained. Patient was brought to the fluoroscopy suite, and placed on the table in the prone position. No consolidating sponge was placed at the level the patient's abdomen. A pre-procedure time out was performed in order to assure the correct patient and procedure Fluoroscopic examination was performed to evaluate optimal access route. Patient has undergone placement of intravertebral disc space devices at the L4-5 and L5-S1 levels. Paired posteriorly placed pedicle screws, secured to a pair of vertically oriented rods identified at L4 and L5. Internal fixation using a screw at the L4 level is identified. Posteriorly placed screws are also visualized at the S1 level. Lower lumbar spine region was sterilely prepared using sterile barrier technique which includes sterile gloves, sterile body drape, hand hygiene and 2% chlorhexidine for cutaneous antisepsis. 2% Xylocaine was used for local anesthesia. A 22-gauge spinal needle was advanced under fluoroscopic guidance at the L5 level. Clear cerebral spinal fluid was obtained on first pass. Under fluoroscopic guidance, 15 mL of Isovue-300 was slowly infused into the thecal sac. The cannula was reinserted, and the spinal needle removed. Hemostasis was achieved. A dry sterile dressing was applied. Imaging was obtained in the AP, as well as bilateral shallow and steep right and left obliques positions. Standing neutral, flexion, and extension views were also obtained. The patient tolerated the procedure well. There were no complications. The patient left the fluoroscopy suite in stable condition, and was immediately transported to the CT suite. Number of films: 8. Fluoroscopy time: 1.8 minutes. IMPRESSION: Conventional lumbar myelography, prior to CT lumbar myelogram as described. [facility] Work Phone: Vital Signs Date Time Vital Sign Value Performing Clinician Facility 06-21-2023 14:11-0400 Body mass index (BMI) [Ratio] 29.42 kg/m2 Joey Montejo MD Work Phone: [facility] 06-21-2023 14:11-0400 Body temperature 97.9 [degF] Joey Montejo MD Work Phone: [facility] 06-21-2023 14:11-0400 Body weight 74.2 kg Joey Montejo MD Work Phone: [facility] 06-21-2023 14:11-0400 Diastolic blood pressure 83 mm[Hg] Joey Montejo MD Work Phone: [facility] 06-21-2023 14:11-0400 Heart rate 62 /min Joey Montejo MD Work Phone: [facility] 06-21-2023 14:11-0400 Respiratory rate 16 /min Joey Montejo MD Work Phone: [facility] 06-21-2023 14:11-0400 SaO2% (BldA) [Mass fraction] 94 % Joey Montejo MD Work Phone: [facility] 06-21-2023 14:11-0400 Systolic blood pressure 147 mm[Hg] Joey Montejo MD Work Phone: [facility] 07-06-2022 13:23-0400 Body temperature 97.81 [degF] Joey Montejo MD Work Phone: [facility] 07-06-2022 13:23-0400 Body weight 69.49 kg Joey Montejo MD Work Phone: [facility] 07-06-2022 13:23-0400 Diastolic blood pressure 64 mm[Hg] Joey Montejo MD Work Phone: [facility] 07-06-2022 13:23-0400 Heart rate 63 /min Joey Montejo MD Work Phone: [facility] 07-06-2022 13:23-0400 Respiratory rate 16 /min Joey Montejo MD Work Phone: [facility] 07-06-2022 13:23-0400 SaO2% (BldA) [Mass fraction] 98 % Joey Montejo MD Work Phone: [facility] 07-06-2022 13:23-0400 Systolic blood pressure 134 mm[Hg] Joey Montejo MD Work Phone: [facility] 06-07-2022 11:00-0400 Body height 160.02 cm Aamdor Cope Other [employer] Other 06-07-2022 11:00-0400 Body mass index (BMI) [Ratio] 30.47 kg/m2 Amador Woojeff Other [facility] Other 06-07-2022 11:00-0400 Body weight 78.02 kg Amador Jamalkatie Other [facility] Other 06-07-2022 11:00-0400 Diastolic blood pressure 83 mm[Hg] Amador Cope Other [facility] Other 06-07-2022 11:00-0400 Systolic blood pressure 145 mm[Hg] Amador Jamalovanjeff Other [facility] Other 05-15-2022 10:28-0400 Diastolic blood pressure 67 mm[Hg] [employer] Lorenza Hemmer Work Phone: [facility] 05-15-2022 10:28-0400 Heart rate 62 /min [employer] Lorenza Hemmer Work Phone: [facility] 05-15-2022 10:28-0400 Respiratory rate 18 /min [employer] Lorenza Hemmer Work Phone: [facility] 05-15-2022 10:28-0400 SaO2% (BldA) [Mass fraction] 99 % [employer] Lorenza Hemmer Work Phone: [facility] 05-15-2022 10:28-0400 Systolic blood pressure 125 mm[Hg] [employer] Lorenza Hemmer Work Phone: [facility] 05-15-2022 08:16-0400 Body height 160.02 cm [employer] Lorenza Hemmer Work Phone: [facility] 05-15-2022 08:16-0400 Body temperature 98 [degF] [employer] Lorenza Hemmer Work Phone: [facility] 05-15-2022 08:16-0400 Body weight 66.67 kg [employer] Lorenza Maude Work Phone: [facility] 02-12-2019 10:55-0500 Diastolic blood pressure 57 mm[Hg] [place] [facility] [employer] Work Phone: 02-12-2019 10:55-0500 Heart rate 64 /min [place] [facility] [employer] Work Phone: 02-12-2019 10:55-0500 SaO2% (BldA) [Mass fraction] 98 % [place] [facility] [employer] Work Phone: 02-12-2019 10:55-0500 Systolic blood pressure 116 mm[Hg] [place] [facility] [employer] Work Phone: 02-12-2019 10:00-0500 Respiratory rate 16 /min [place] [facility] [employer] Work Phone: Encounters Encounter Date Encounter Type Care Provider Facility Start: 11-13-2023 End: 11-13-2023 Bamboo flowsheet Jackie Kelbley [facility] Start: 11-13-2023 End: 11-13-2023 Bamboo flowsheet Jackie Kelbley [facility] Start: 11-13-2023 End: 11-13-2023 ambulatory JACKIE KELBLEY [facility] Comment on above: Chronic left shoulde r pain (Primary Dx); Bilateral sciatica; Degeneration of intervertebral disc of lumbar region with discogenic back pain and lower extremity pain Start: 11-09-2023 End: 11-09-2023 Bamboo flowsheet Jackie Kelbley [facility] Start: 11-09-2023 End: 11-09-2023 Bamboo flowsheet Jackie Kelbley [facility] Start: 11-09-2023 End: 11-09-2023 ambulatory JACKIE KELBLEY [facility] Comment on above: Chronic left shoulde r pain (Primary Dx); Bilateral sciatica; Degeneration of intervertebral disc of lumbar region with discogenic back pain and lower extremity pain Start: 11-06-2023 End: 11-06-2023 Bamboo flowsheet Jackie Kelbley [facility] Start: 11-06-2023 End: 11-06-2023 Bamboo flowsheet Jackie Diego [facility] Start: 11-06-2023 End: 11-06-2023 ambulatory Jackie Diego [facility] Comment on above: Chronic left shoulde r pain (Primary Dx); Bilateral sciatica; Degeneration of intervertebral disc of lumbar region with discogenic back pain and lower extremity pain Start: 11-02-2023 End: 11-02-2023 ambulatory JACKIE DIEGO Not Available Start: 10-30-2023 End: 10-30-2023 ambulatory MONICA HIGHTOWER Not Available Start: 10-25-2023 End: 10-25-2023 ambulatory JACKIE DIEGO Not Available Start: 10-23-2023 End: 10-23-2023 ambulatory JACKIE DIEGO Not Available Start: 10-17-2023 End: 10-17-2023 ambulatory MONICA HIGHTOWER Not Available Start: 10-05-2023 End: 10-05-2023 ambulatory LORENZA M HEMMER Not Available Start: 06-21-2023 End: 06-21-2023 ambulatory JOEY ABHYANKAR Facility:[facility] Start: 06-21-2023 End: 06-21-2023 Office outpatient visit 25 minutes Joey Montejo MD Work Phone: Hematology/Oncology Comment on above: Aromatase inhibitor use (Primary Dx); History of left breast cancer Start: 05-07-2023 End: 05-07-2023 ambulatory LORENZA M HEMMER Not Available Start: 02-21-2023 End: 02-21-2023 ambulatory LORENZA HEMMER Not Available Start: 02-07-2023 End: 02-07-2023 ambulatory LORENZA HEMMER Not Available Start: 01-17-2023 End: 01-17-2023 ambulatory DAVID CROSS Not Available Start: 07-06-2022 End: 07-07-2022 ambulatory JOEY ABHYANKAR Facility:[facility] Start: 07-06-2022 End: 07-06-2022 ambulatory Chair Carl Cavazos Work Phone: Hematology/Oncology Comment on above: Aromatase inhibitor use (Primary Dx); Malignant neoplasm of areola of left breast in female, estrogen receptor positive (HCC) Start: 07-06-2022 End: 07-06-2022 Office outpatient visit 25 minutes Joey Montejo MD Work Phone: Hematology/Oncology Comment on above: Malignant neoplasm o f areola of left breast in female, estrogen receptor positive (HCC) (Primary Dx); Breast screening; Aromatase inhibitor use Start: 06-09-2022 End: 06-10-2022 ambulatory JOEY MONTEJO Facility:[facility] Start: 06-07-2022 End: 06-07-2022 ambulatory Amador Cope Other [employer] Other Start: 06-07-2022 Office outpatient vi sit 15 minutes Amador Cope [facility] Start: 05-15-2022 End: 05-15-2022 ambulatory Santy Naranjo Facility:[facility] Start: 05-15-2022 End: 05-15-2022 Admission to same day surgery center [employer] WIND[employer]idal Santoro Work Phone: [facility] Work Phone: Start: 05-15-2022 End: 05-15-2022 ambulatory ADELITA Santoro Work Phone: [facility] Work Phone: Start: 05-13-2022 End: 05-14-[address] CECILIO PATEL Facility:[facility] Start: 04-11-2022 End: 04-12-[address] LEO COYLE Facility:[facility] Start: 01-10-2022 Social Work Christine REGAN Hematolo gy/Oncology Start: 01-06-2022 Telephone encounter Christine REGAN H ematology/Oncology Comment on above: Social Work Services Orders Start: 12-28-2021 Telephone encounter Gely Shin RN Work Phone: Hematology/Oncology Comment on above: Care Coordination (F ollow up appointment) Start: 04-21-2021 Telephone encounter Joey toledo MD Work Phone: Cancer [facility] Comment on above: Appointment Confirma tion Start: 02-12-2019 End: 02-15-2019 Patient encounter procedure WILLARD OLMSTEAD [facility] Start: 02-12-2019 End: 02-15-2019 Patient encounter procedure WILLARD OLMSTEAD [facility] Start: 02-12-2019 End: 02-14-2019 Subsequent hospital visit by physician Eliza [address] [facility] [address] Scan Comment on above: Lumbar spondylosis; Lumbar disc herniation; Spinal stenosis, lumbar region with neurogenic claudication; Pseudoarthrosis of lumbar spine Start: 02-12-2019 End: 02-14-2019 Subsequent hospital visit by physician Eliza 1 [facility] Radiology Comment on above: Lumbar spondylosis; Lumbar disc herniation; Spinal stenosis, lumbar region with neurogenic claudication; Pseudoarthrosis of lumbar spine Procedures Date Procedure Procedure Detail Performing Clinician Start: 08-02-2022 H/O: hysterectomy History of hysterectomy Jackie Diego [employer]NA[employer] Start: 05-15-2022 Esophagogastroduodenoscopy [employer]-C Lorenza holbrook Work Phone: Start: 05-15-2022 Colonoscopy Jackie Diego MANA[employer] Start: 04-10-2022 Lipid 1996 panel - Serum or Plasma Joey Montejo MD Work Phone: Start: 12-24-2020 Colonoscopy Christine Brandt NOUGAT [employer]ANDY [employer] HEL[employer] Start: 02-12-2019 Ct lumbar spine w/contrast material WILLARD ISHAN Start: 02-12-2019 Myelograpy lumbosacral rs&i WILLARD ISHAN Start: 02-12-2019 Ct lumbar spine w/contrast material Willard Olmstead MD Work Phone: Start: 02-12-2019 Myelograpy lumbosacral rs&i Willard Olmstead MD Work Phone: Start: 07-05-2018 Mammography Joey Montejo MD Work Phone: H/O: hysterectomy Amador Talavera nnpaola Other Plan of Treatment Date Care Activity Detail Author Start: 05-15-2032 Screening for malign ant neoplasm of colon [facility] Start: 04-11-2027 Lipid panel Lipid Screening [facility] Start: 04-11-2027 LIPID SCREEN LIPID SCREEN [facility] Start: 06-20-2026 Diabetes Screening Diabetes Screenjacob g [facility] Start: 07-06-2025 DIABETES SCREEN DIABETES SCREEN [facility] Start: 10-21-2024 DIABETES SCREEN DIABETES SCREEN [facility] Start: 07-20-2024 Pneumococcal Vaccine : 65+ (3 of 3 - PPSV23 or PCV20) Pneumococcal Vaccine: 65+ (3 of 3 - PPSV23 or PCV20) [facility] Start: 06-19-2024 End: 06-19-2024 Follow-up encounter 06/19/2024 2:15 PM EDT Visit (SP) Office Hematology/Oncology [address] [place] [address] Joey Montejo MD [address] [place] [address] 1 year follow up lab 30 min visit Hematology/Oncology Comment on above: 1 year follow up lab 30 min visit Start: 06-19-2024 End: 06-19-2024 Patient encounter procedure 06/19/2024 2:00 PM EDT Office Visit [facility] [address] [place] [address] 1 year follow up lab 30 min visit [facility] Comment on above: 1 year follow up lab 30 min visit Start: 05-06-2024 Medicare Annual Well ness (AWV) Medicare Annual Wellness (AWV) [facility] Start: 04-21-2024 DIABETES SCREEN DIABETES SCREEN [facility] Start: 11-13-2023 End: 11-13-2023 ambulatory 11/13/2023 10:30 AM EDT Treatment [facility] [address] [place] [address] Monica Hightower, PT [facility] Start: 11-09-2023 End: 11-09-2023 ambulatory 11/09/2023 10:30 AM EDT Treatment [facility] [address] [place] [address] Jackie Diego, MANAGER SUMMER [facility] Start: 07-03-2023 Urine microalbumin profile [facility] Start: 06-29-2023 End: 07-10-2023 CBC W Auto Differential panel - Blood CBC + DIFF Lab Routine Malignant neoplasm of areola of left breast in female, estrogen receptor positive (HCC) Breast screening Aromatase inhibitor use Expected: 06/29/2023 (Approximate), Expires: 07/10/2023 [facility] Work Phone: Comment on above: Expected: 06/29/2023 (Approximate), Expires: 07/10/2023 Start: 06-29-2023 End: 07-10-2023 Comprehensive metabolic 2000 panel - Serum or Plasma COMP METABOLIC PANEL Lab Routine Malignant neoplasm of areola of left breast in female, estrogen receptor positive (HCC) Breast screening Aromatase inhibitor use Expected: 06/29/2023 (Approximate), Expires: 07/10/2023 [facility] Work Phone: Comment on above: Expected: 06/29/2023 (Approximate), Expires: 07/10/2023 Start: 06-29-2023 End: 08-08-2023 FIDEL SCREENING FID[facility] Radiology Routine Malignant neoplasm of areola of left breast in female, estrogen receptor positive (HCC) Breast screening Aromatase inhibitor use Expected: 06/29/2023 (Approximate), Expires: 08/08/2023 [facility] Work Phone: Comment on above: Expected: 06/29/2023 (Approximate), Expires: 08/08/2023 Start: 06-10-2023 Screening for malign ant neoplasm of breast Mammogram Screening [facility] Start: 02-05-2023 Advance Directive Discussion Advance Directive Discussion [facility] Start: 02-05-2023 Behavioral Health Screening Behavioral Health Screening [facility] Start: 10-06-2022 Covid-19 Vaccine () Covid-19 Vaccine () [facility] Start: 05-15-2022 [facility] Start: 02-05-2022 ADVANCE DIRECTIVE DISCUSSION ADVANCE DIRECTIVE DISCUSSION [facility] Start: 02-05-2022 DEPRESSION ASSESSMENT DEPRESSION ASS ESSMENT [facility] Start: 12-24-2021 Colonoscopy COLONOSCOPY [facility] Start: 12-24-2021 COLORECTAL CANCER SCREENING COLORECTAL CANCER SCREENING [facility] Start: 10-06-2021 Influenza vaccination INFLUENZA (#1) [facility] Start: 02-05-2021 ADVANCE DIRECTIVE DISCUSSION ADVANCE DIRECTIVE DISCUSSION [facility] Start: 02-05-2021 DEPRESSION ASSESSMENT DEPRESSION ASS ESSMENT [facility] Start: 02-01-2021 COVID-19 VACCINE (3 - Booster for Bruce series) COVID-19 VACCINE (3 - Booster for Bruce series) [facility] Start: 02-01-2021 COVID-19 VACCINE (3 - Bruce risk 3-dose series) COVID-19 VACCINE (3 - Bruce risk 3-dose series) [facility] Start: 07-20-2020 PNEUMOCOCCAL: 65+ (#3) PNEUMOCOCCAL: 65+ (#3) [facility] Start: 07-20-2020 PNEUMOCOCCAL: 65+ (2 - PPSV23 if available, else PCV20) PNEUMOCOCCAL: 65+ (2 - PPSV23 if available, else PCV20) [facility] Start: 07-20-2020 PNEUMOCOCCAL: 65+ (3 - PPSV23 if available, else PCV20) PNEUMOCOCCAL: 65+ (3 - PPSV23 if available, else PCV20) [facility] Start: 07-06-2019 Mammography MAMMOGRAM [facility] Start: 03-07-2019 End: 03-07-2019 Patient encounter procedure 03/07/2019 Office Visit Neurosurgery Willard Olmstead MD [address] [facility], [address] [place] [id number] [employer] Start: 02-03-2019 Annual Wellness Visi t (AWV) Annual Wellness Visit (AWV) [employer] Phone: Start: 10-06-2018 Influenza vaccination Flu vaccine (# 1) [facility] Phone: Start: 09-19-2018 Screening for malign ant neoplasm of colon [facility] Start: 2018 BONE DENSITY BONE DENSITY [facility] Start: 2018 DEXA (modify frequen cy per FRAX score) DEXA (modify frequency per FRAX score) [facility] Phone: Start: 2018 Pneumococcal 65+ yea rs Vaccine (1 of 1 - PPSV23) Pneumococcal 65+ years Vaccine (1 of 1 - PPSV23) [facility] Phone: Start: 2018 PNEUMOVAX AGE 65 AND OVER WITH 5YR LOOKBACK (#1) PNEUMOVAX AGE 65 AND OVER WITH 5YR LOOKBACK (#1) [facility] Start: 07-15-2003 Breast cancer screen Breast cancer s creen [facility] Phone: Start: 07-15-2003 Colon cancer screen colonoscopy Colon cancer screen colonoscopy [facility] Phone: Start: 07-15-2003 Shingles Vaccine (1 of 2) Shingles Vaccine (1 of 2) [facility] Phone: Start: 1998 COLOGUARD (FIT-DNA) COLOGUARD (FIT-D NA) [facility] Start: 1998 Colonoscopy COLONOSCOPY [facility] Start: 1998 COLORECTAL CANCER SCREENING COLORECTAL CANCER SCREENING [facility] Start: [address] COLONOGRAPHY [facility] Start: 1998 FECAL OCCULT BLOOD FECAL OCCULT BLOO D [facility] Start: 1998 LIPID SCREEN LIPID SCREEN [facility] Start: 1998 Screening for malign ant neoplasm of colon [facility] Start: 1998 SIGMOIDOSCOPY SIGMOIDOSCOPY [facility] Start: 1993 Diabetes screen Diabetes screen [employer] Phone: Start: 1974 Cervical cancer screen Cervical canc er screen [employer] Phone: Start: 1972 Urine microalbumin profile DTAP,TDAP,TD (1 - Tdap) [facility] Start: 07-15-1971 HEPATITIS C SCREENING HEPATITIS C [facility] Start: 07-15-1971 Hepatitis C screening Hepatitis C [facility] Start: 1968 HIV screen HIV screen [facility] Work Phone: Start: 1965 Adult depression screening assessment DEPRESSION SCREENING [facility] Start: 1964 DTaP/Tdap/Td vaccine (1 - Tdap) DTaP/Tdap/Td vaccine (1 - Tdap) [facility] Work Phone: Start: 07-15-1963 Lipid screen Lipid screen [facility] Work Phone: Start: 1953 Hepatitis C screen Hepatitis C scree n [facility] Work Phone: Start: 1953 Screening for malign ant neoplasm of colon [facility] End: 07-20-2024 BD DXA TRABECULAR BONE SCORE (TBS) BD DXA TRABECULAR BONE SCORE (TBS) Radiology Routine Aromatase inhibitor use 1 Occurrences starting 06/21/2023 until 07/20/2024 [facility] Comment on above: 1 Occurrences starti ng 06/21/2023 until 07/20/2024 End: 07-20-2024 DXA Skeletal system.axial Views for bone density and vertebral fracture DXA-AXIAL SKELETON WITH VFA Radiology Routine Aromatase inhibitor use 1 Occurrences starting 06/21/2023 until 07/20/2024 [facility] Work Phone: Comment on above: 1 Occurrences starti ng 06/21/2023 until 07/20/2024 [facility] Immunizations Immunization Date Immunization Notes Care Provider Norma montalvo 10-31-2022 Influenza, Seasonal, Quadrivalent, Adjuvanted Jackie Diego [facility] 11-01-2021 influenza, high-dose, quadrivalent vaccine (FLUZONE HIGH DOSE QUADRIVALENT) Christine Carlton [facility] 11-01-2021 SARS-CoV-2, Unspecified Jackie Diego [facility] 11-10-2020 influenza, high-dose, quadrivalent vaccine (FLUZONE HIGH DOSE QUADRIVALENT) [facility] 04-01-2020 zoster vaccine recombinant Joey Montejo MD Work Phone: [facility] 01-12-2020 zoster vaccine recombinant Joey Montejo MD Work Phone: [facility] 11-01-2019 influenza, high dose seasonal, preservative-free Christine Carlton [facility] 11-01-2019 influenza, high-dose, quadrivalent vaccine (FLUZONE HIGH DOSE QUADRIVALENT) Joey Montejo MD Work Phone: [facility] 11-01-2019 zoster vaccine recombinant Joey Montejo MD Work Phone: [facility] 11-01-2019 zoster vaccine, live Christine Carlton [facility] 07-21-2019 pneumococcal conjugate vaccine, 13 valent Joey Montejo MD Work Phone: [facility] 09-27-2018 influenza, high dose seasonal, preservative-free Christine Carlton [facility] 09-27-2018 Seasonal trivalent influenza vaccine, adjuvanted, preservative free Joey Montejo MD Work Phone: [facility] 07-17-2018 pneumococcal conjugate vaccine, 13 valgita Montejo MD Work Phone: [facility] 10-24-2017 Influenza, injectable, [facility] [place] [facility], quadrivalent with preservative Amador Cope Other [employer] Other 10-24-2017 influenza, injectable, quadrivalent, preservative free Joey Montejo MD Work Phone: [facility] 10-24-2017 influenza, seasonal, injectable, preservative free Christine Carlton [facility] 10-24-2017 seasonal influenza, intradermal, preservative free Jackie Diego [facility] 10-17-2016 influenza, seasonal, injectable, preservative free Christine Carl[facility] 10-17-2016 seasonal influenza, intradermal, preservative free Joey Montejo MD Work Phone: [facility] 10-12-2016 influenza, injectable,quadrival ent, preservative free, pediatric Amador Cope Other [employer] Other 10-12-2016 influenza, injectable, quadrivalent, preservative free Joey Montejo MD Work Phone: [facility] 10-26-2015 influenza, injectable, quadrivalent, contains preservative Joey Montejo MD Work Phone: [facility] 10-26-2015 influenza, injectable, quadrivalent, preservative free Christine Carlton [facility] 10-26-2015 influenza, injectable,quadrival ent, preservative free, pediatric Amador Sckatie Other [facility] Other 11-17-2014 influenza, injectable, quadrivalent, preservative free Christine Carlton [facility] 11-17-2014 pneumococcal polysaccharide vaccine, 23 valent Christine Carlton [facility] 11-17-2014 influenza, injectable,quadrival ent, preservative free, pediatric Amador Prisca Other [facility] Other 04-01-2014 influenza, injectable, quadrivalent, preservative free Christine Carlton [facility] 08-05-2013 zoster vaccine, live Joey rankin MD Work Phone: [facility] 07-09-2013 zoster vaccine, live Joey rankin MD Work Phone: [facility] 07-02-2013 tetanus toxoid, reduced diphtheria toxoid, and acellular pertussis vaccine, adsorbed Christine Brandt [facility] 12-10-2012 influenza, seasonal, injectable, preservative free Christine Carlton [facility] 12-10-2012 influenza, injectable, quadrivalent, preservative free Amador Scovanner Other [facility] Other 03-29-2009 novel [id number], preservative-free, injectable Joey Montejo MD Work Phone: [facility] NEGATED: Highlighted row has not occurred! 6 influenza, injectable,quadrival ent, preservative free, pediatric Patient Objection Amador Cope Other [employer] Other Payers Date Payer Category Payer Self-pay [id number] 2021 Medicare HUMANA MEDICARE HUMANA MEDICARE PPO [id number] 2021-Present [phone] [place] [address] PPO [id number] 2018 Medicare HUMANA MEDICARE HUMANA CHOICE-PPO MEDICARE xxxxxxxxx 2018-Present [address] [place] [phone] xxxxxxxxx [id number] 2017 Medicare [id number] 1959 Medicare [id number] 1953 Unknown [id number] 2.16.840.1.981947.3.579. 2.182 1953 Unknown [id number] 2.16.840.1.623137.3.579. 2.182 1953 Unknown [id number] 2.16.840.1.442634.3.579. 2.593 1953 Unknown [id number] 2.16.840.1.997273.3.579. 2.593 1953 Unknown [id number] 2.16.840.1.833405.3.579. 2.593 1953 Unknown [id number] 2.16.840.1.086391.3.579. 2.1259 1953 Unknown [id number] 2.16.840.1.075737.3.579. 2.1259 1954 Unknown [id number] 2.16.840.1.822259.3.579. 2.1258 1953 Unknown [id number] 2.16.840.1.671798.3.579. 2.1258 1953 Unknown [id number] 2.16.840.1.306681.3.579. 2.1258 1953 Unknown [id number] 2.840.1.618928.3.579. 2.1258 1953 Unknown [id number] 2.840.1.265337.3.579. 2.1258 1953 Unknown [id number] 2.840.1.444569.3.579. 2.1258 1953 Unknown [id number] 2.0.1.143591.3.579. 2.1258 1953 Unknown [id number] 2.840.1.587373.3.579. 2.1258 1953 Unknown [id number] 2.0.1.183007.3.579. 2.1258 1953 Unknown [id number] 2.0.1.232661.3.579. 2.1258 1953 Unknown [id number] 2.0.1.759255.3.579. 2.1259 Medicare Medicare [id number] Medicare [id number] [id number] Private Health Insurance [employer] [id number] Unknown [facility] [id number] Unknown [facility] [id number] Unknown [id number] 2.16.840.1.927733.3.579. 2.531 Social History Date Type Detail Facility Start: 02-12-2019 End: 10-05-2023 Tobacco smoking status IDIS Current every day smoker [facility] Phone: Start: 1955 [facility] Start: 02-11-2020 Tobacco smoking stat us IDIS Ex-smoker [facility] Start: 02-11-2020 End: 10-05-2023 Tobacco use and exposure Smokeless tobacco non-user [facility] Start: 10-21-2020 End: 10-05-2023 Alcohol intake Current drinker of alcohol (finding) [facility] Start: 08-02-2015 History SDOH Alcohol Comment rarely [facility] Start: 05-15-2022 History of tobacco use Current smoke r [facility] Start: 12-26-2021 End: 01-05-2022 Exposure to SARS-CoV-2 (event) Not sure [facility] Start: 1955 Sex Assigned At Female F [facility] Start: 07-06-2022 End: 05-07-2023 Sex Assigned At [facility] Start: 07-06-2022 End: 05-07-2023 History of Social function [facility] Adult Depression Screening Assessment 0 [facility] History of tobacco use Cigarette Smoker [facility] Start: 09-22-2022 Education 13 [facility] Start: 10-19-2022 Tobacco Comment 1-9 cigs/day [facility] Start: 09-22-2022 Alcohol Comment Alcohol: 2 to 4 times a month. Caffeine; 1-2 cups/day [facility] Medical Equipment Procedure Code Equipment Code Equipment Origin al Text Equipment Identifier Dates Fusion, spine, lumbar, XLIF COROENT INTERBODY FDA Start: 12-04-2017 Fusion, spine, lumbar, XLIF VOYAGER SET SCREW FDA Start: 12-04-2017 Fusion, spine, lumbar, XLIF VOYAGER SET SCREW FDA Start: 12-04-2017 Fusion, spine, lumbar, XLIF VOYAGER SET SCREW FDA Start: 12-04-2017 Fusion, spine, lumbar, XLIF VOYAGER SET SCREW FDA Start: 12-04-2017 Fusion, spine, lumbar, XLIF VOYAGER SET SCREW FDA Start: 12-04-2017 Fusion, spine, lumbar, XLIF XLIF 1 LEVEL MONITOR EMG/SSEP FDA Start: 12-04-2017 Fusion, spine, lumbar, XLIF COROENT XLF SCREW FDA Start: 12-04-2017 Fusion, spine, lumbar, XLIF DBM PUTTY 10CC FDA Start: 12-04-2017 Fusion, spine, lumbar, XLIF INFUSE XX SMALL 0.7CC FDA Start: 12-04-2017 Fusion, spine, lumbar, XLIF VOYAGER MAS SCREW FDA Start: 12-04-2017 Fusion, spine, lumbar, XLIF VOYAGER MAS SCREW FDA Start: 12-04-2017 Fusion, spine, lumbar, XLIF VOYAGER MAS SCREW FDA Start: 12-04-2017 Fusion, spine, lumbar, XLIF VOYAGER REBECA FDA Start: 12-04-2017 Fusion, spine, lumbar, XLIF VOYAGER SET SCREW FDA Start: 12-04-2017 Goals Date Patient Goal Desired Activity /State Clinical Notes 02-12-2019 to 11-06-2023 Jackie Cruzrochelle, MANAGER SUMMER - 11/06/2023 10:00 AM EDTPatient Joey Elmore MD - 06/21/2023 2:30 PM EDTPatient InstructionsJoey Montejo MD - 07/06/2022 1:30 PM EDT Note Date & Type Note Facility 11-06-2023 History of Present illness Narrative Physical Therapy Daily Visit Patient Name: Fatou Taylor Today's Date: 11/06/2023 Encounter Diagnoses Name Primary? Chronic left shoulder pain Yes Bilateral sciatica Degeneration of intervertebral disc of lumbar region without discogenic back pain or lower extremity pain Visit number: 6( of 8 visits) Timed Code Treatment: 42 minutes Total Treatment Time: 57 minutes Time In: 10:00 AM Time Out: 10:57 AM History: Pt states she has been having pain and muscle spasms in left shoulder and her low back. Recently sx's seem to worsen. Has a history of 3 low back surgeries and would like to avoid any further. Pt states dosage of gabapentin has been increased which has helped quite a bit. Still can feel a bit of pain in her right groin, knee, and feels some in her big toe. Both hips hurt at times. Precautions: Lumbar fusion Subjective: States 4/10 left side into groin, L shoulder 210 Pain: Objective: PT Evaluation (10/17/2023) LUMBAR SPINE AROM: flex fingers to toes with some pain in big toe, extension no pain at end range, increase right low back pain end range right SB, no pain end range left SB Joint play: not tested ; lumbar fusion Strength: right hip 4-/5, quad 4/5; left hip 4/5, quad 4+/5; core strength is fair Palpation: Min tenderness bilateral lower lumbar paraspinals Special Test: bilateral hip scour negative Neurological: Reflexes: 2+ bilateral patellar Myotomes: negative Dermatomes: negative bilateral Special Test: bilateral slump negative, negative clonus Left SHOULDER AROM: 150 degrees flexion, 130 degrees abduction, full IR and ER Strength: flex 4/5, abduction, ER, and empty can 4-/5 Treatment: Manual Therapy: (13 minutes) Delivered manual ther to lower lumbar spine STM, PA mobs, sacral and R LE distraction( gentle) to improve mobility and decrease LB pain Therapeutic Exercise: (17 minutes supervised) Guided pt through ther and flex ex per grid to improve LE, trunk core flexibility and functional strength, reviewed HEP and educated importance of compliance. Therapeutic Activity: Exercises to improve dynamic activities, functional tasks, functional mobility to return to prior activity level as needed. Neuromuscular re-education: (12 minutes supervised) Dynamic and static core lumbar stability ex focusing on transverse abdominal strength Modalities: (15 minutes) Post session IFC/MHP to lower lumbar spine, pt prone to decrease muscle soreness Assessment: Pt has completed 6 PT sessions for DDD, low back pain and left shoulder pain. Has history of lumbar fusion. States has been performing HEP as instructed with no issue. Reports increased soreness in LB after session but has progressively gotten better, 2/. Shoulder pain good days and bad days, denies pain this date. Pt required near constant verbal cues for correction and to stay on task. Reviewed HEP and educated pt on importance and benefit from core strengthening for improved lumbar stability, voiced understanding Outcome Measure: Lower Extremity Functional Scale (LEFS): 43/80 Rehab Diagnosis: low back pain; decrease core and right LE strength; pain in left shoulder; left shoulder weakness Short Term Goal: To be met in 2 weeks Goal 1: Pt to be instructed in home exercise program. [facility] Goals: To be met in 10 weeks Goal 1: Pt to report independence and compliance with home program. Goal 2: Pt to have full trunk ROM without complaints of increase pain at end ranges to assist with functional tasks. Goal 3: Pt to report pain no greater than 3/10 with function tasks, ADL's, and work related activities. Goal 4: Pt to score no less than 53 on LEFS indicating improved QOL. Goal 5: Pt to achieve 4 to 4+/5 strength left shoulder to assist with functional activities at home. Pt will benefit from skilled PT for 2x/week from 10/17/2023 to 12/26/2023 to address the above impairments. I hereby deem this POC medically necessary. Please sign below. Date: documented in this encounter [facility] 06-21-2023 Note HNO ID: [id number] Author: JOEY MONTEJO MD Service: ? Author Type: Physician Type: Progress Notes Filed: 06/21/2023 22:25 Note Text: NAME: Fatou Taylor CLINIC NO.: [id number] DATE OF SERVICE: June 21, 2023 ([place]) Some elements in this clinic note that are critical to medical decision making have been carefully reviewed and included from a prior clinic note dated: July 06, 2022 ([place]) Referring Provider: Dr. Ruvalcaba Additional Clinicians involved in Fatou Taylor's care: CC: Follow-up for breast cancer. 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 She was having severe night sweats on Arimidex and have been getting worse over the past couple years so we stopped Arimidex but symptoms didn't resolve so continued until recently Prior history of hemorrhoidectomy with findings of high-grade squamous intraepithelial dysplasia - 2016. PLAN: DXA scan to determine need for additional Zometa Triage to call results RTC 12 months 1-2 weeks after Mammography - labs same day repeat exam - 30 mins HPI: CASE HISTORY: Reverse Chronological Order 06/09/2022 - Mammo screening: BiRADs 2. 08/18/2020 - Mammograms Birads-2 Late 2015-01/2022 - Arimidex Updated Visit, June 21, 2023: Fatou returns today for a follow up. She complains of chronic back pain. She denies any breast pain or noticeable changes. She is due for a DXA scan - may need additional Zometa. Mammogram next week. Chaperoned Breast Exam June 21, 2023 ([place] Rivera) : Right breast is normal, Left breast has small, chronic defect in axillary tail, overall no changes. Rhiannon exam is negative. Updated Visit, July 06, 2022: Fatou reports left arm pain - may have some symptom relief with lymphedema specialist although I could not feel much edema. Updated Visit, January 05, 2022: Moved back from [place] couldn't cope and was getting depressed. Mammograms done last June. Bone density up to date. Labs stable. Will obtain mammograms in June 2022 in addition to Zometa. When she returns after mammograms I will see her and examine her. She elected to stop Arimidex having completed approximately 5-6 years. Updated Visit, October 21, 2020: 65 yo woman with left ER + breast cancer. Relapsed with smoking but is trying to quit again. Breast exam unchanged. Continue taking Hi + Vit D. Needs surveillance for high-grade squamous intraepithelial dysplasia Updated Visit, March 18, 2020: Fatou is a 64-year-old woman with a prior history of early stage left breast cancer and had been on Arimidex since late 2015. She had complained of worsening sweats And so we had her hold the Arimide for 1 month. She returns today and has had no change off of Arimidex so will restart it. She has quit smoking and it's possible that sweats are from her body's enhanced response to her lung inflammation and trying to clear this. Initial Visit, February 12, 2020: Fatou is a 64-year-old woman with a prior history of early stage left breast cancer currently on Arimidex since late 2015. She has been followed up [facility] in [place] but is transferring her care here. Historically, she presented July of 2015 in consultation with an early stage breast cancer. ` For a workup of a breast mass on mammography she was taken to stereotactic biopsy June 25, 2015 with the findings of a 0.5 cm grade 2 breast cancer on the left. The cancer was ER and NV positive and HER 2 negative. The patient was then taken back for lumpectomy and axillary node dissection. Pathology showed a 0.5 cm grade 2 breast cancer with 1 sentinel lymph node negative for metastasis. The total dimension of the cancer appears to be around 1 cm. At the same time she had a separate issue Concerning her hemorrhoids and had a hemorrhoidectomy and sphincterotomy. Pathology for this showed focal high-grade squamous intraepithelial dysplasia at the squamocolumnar junction. has 1 son. Severe night sweats for several year no early satiety and no weight loss. Trying to quit smoking. REVIEW OF SYSTEMS Per HPI and otherwise negative by full review of organ systems. ECOG PERFORMANCE STATUS: 0 PHYSICAL EXAMINATION: Vitals: BP 147/83 Pulse 62 Temp (Src) 97.9 (Temporal) Resp 16 Wt 163 lb 9.3 oz (74.2kg) SpO2 94% Body surface area is 1.81 meters squared. Exam limited to gross visualization where appropriate. Gen.: This is an age-appropriate patient in no acute d (more content not included)... [facility] 06-21-2023 Instructions Laura Rivas - 06/21/2023 2:35 PM EDT DXA scan to determine need for additional Zometa Triage to call results RTC 12 months 1-2 weeks after Mammography - labs same day repeat exam - 30 mins documented in this encounter [facility] 06-21-2023 History of Present illness Narrative Images from the original note were not included. NAME: Fatou Taylor [facility] NO.: [id number] DATE OF SERVICE: June 21, 2023 ([facility]) Some elements in this clinic note that are critical to medical decision making have been carefully reviewed and included from a prior clinic note dated: July 06, 2022 ([facility]) Referring Provider: Dr. Ruvalcaba Additional Clinicians involved in Fatou Morenoz's care: CC: Follow-up for breast cancer. ASSESSMENT: This is a 67 year old woman with early stage left breast infiltrating ductal grade 2 cancer ER/NV positive HER-2/connie negative status post lumpectomy with axillary rhiannon dissection followed by radiation and adjuvant estrogen suppression in 2016. She was having severe night sweats on Arimidex and have been getting worse over the past couple years so we stopped Arimidex but symptoms didn't resolve so continued until recently Prior history of hemorrhoidectomy with findings of high-grade squamous intraepithelial dysplasia - 2016. PLAN: DXA scan to determine need for additional Zometa Triage to call results RTC 12 months 1-2 weeks after Mammography - labs same day repeat exam - 30 mins HPI: CASE HISTORY: Reverse Chronological Order 06/09/2022 - Mammo screening: BiRADs 2. 08/18/2020 - Mammograms Birads-2 Late 2015-01/2022 - Arimidex Updated Visit, June 21, 2023: Fatou returns today for a follow up. She complains of chronic back pain. She denies any breast pain or noticeable changes. She is due for a DXA scan - may need additional Zometa. Mammogram next week. Chaperoned Breast Exam June 21, 2023 (Nate Rivera) : Right breast is normal, Left breast has small, chronic defect in axillary tail, overall no changes. Rhiannon exam is negative. Updated Visit, July 06, 2022: Fatou reports left arm pain - may have some symptom relief with lymphedema specialist although I could not feel much edema. Updated Visit, January 05, 2022: Moved back from [place] couldn't cope and was getting depressed. Mammograms done last June. Bone density up to date. Labs stable. Will obtain mammograms in June 2022 in addition to Zometa. When she returns after mammograms I will see her and examine her. She elected to stop Arimidex having completed approximately 5-6 years. Updated Visit, October 21, 2020: 65 yo woman with left ER + breast cancer. Relapsed with smoking but is trying to quit again. Breast exam unchanged. Continue taking Hi + Vit D. Needs surveillance for high-grade squamous intraepithelial dysplasia Updated Visit, March 18, 2020: Fatou is a 64-year-old woman with a prior history of early stage left breast cancer and had been on Arimidex since late 2015. She had complained of worsening sweats And so we had her hold the Arimide for 1 month. She returns today and has had no change off of Arimidex so will restart it. She has quit smoking and it's possible that sweats are from her body's enhanced response to her lung inflammation and trying to clear this. Initial Visit, February 12, 2020: Fatou is a 64-year-old woman with a prior history of early stage left breast cancer currently on Arimidex since late 2015. She has been followed up [facility] in [place] but is transferring her care here. Historically, she presented July of 2015 in consultation with an early stage breast cancer. ` For a workup of a breast mass on mammography she was taken to stereotactic biopsy June 25, 2015 with the findings of a 0.5 cm grade 2 breast cancer on the left. The cancer was ER and NV positive and HER 2 negative. The patient was then taken back for lumpectomy and axillary node dissection. Pathology showed a 0.5 cm grade 2 breast cancer with 1 sentinel lymph node negative for metastasis. The total dimension of the cancer appears to be around 1 cm. At the same time she had a separate issue Concerning her hemorrhoids and had a hemorrhoidectomy and sphincterotomy. Pathology for this showed focal high-grade squamous intraepithelial dysplasia at the squamocolumnar junction. has 1 son. Severe night sweats for several year no early satiety and no weight loss. Trying to quit smoking. REVIEW OF SYSTEMS Per HPI and otherwise negative by full review of organ systems. ECOG PERFORMANCE STATUS: 0 PHYSICAL EXAMINATION: Vitals: BP 147/83 Pulse 62 Temp (Src) 97.9 (Temporal) Resp 16 Wt 163 lb 9.3 oz (74.2kg) SpO2 94% Body surface area is 1.81 meters squared. Exam limited to gross visualization where appropriate. Gen.: This is an age-appropriate patient in no acute distress. Head: Appears atraumatic with no visible lesions. Eyes: Pupils equally round and reactive to light, extraocular muscles are intact. Neck: Supple. Respiratory: Appears to be respiring comfortably. Neurologic: Nonfocal to gross visualization. Alert and oriented 3. Psychiatric: No evidence of inappropriate anxiety or depression. Skin: Visible areas of skin without rash, lesions, wounds or petechiae. Lymph node exam: No appreciable lymphadenopathy in cervical supraclavicular or axillary lymph node chains. Chaperoned Breast Exam June 21, 2023 (Nate Rivera) : Right breast is normal, Left breast has small, chronic defect in axillary tail, overall no changes. Rhiannon exam is negative. Chaperoned Breast Exam(Neha Dai) normal right breast with surgical defect on the left breast but both sides were otherwise normal with no nipple inversion or discharge. Left arm is sore but reproducible tension in left shoulder and arm. Compression seemed to ease. ALLERGIES: ALLERGIES No Known Allergies MEDICATIONS: polyethylene glycol 3350 (PURELAX ORAL) Take by mouth. zoledronic acid (ZOMETA INTRAVENOUS) Inject intravenously every 6 hours as needed. CALCIUM ORAL Take by mouth. PARoxetine (PAXIL) 10 mg tablet Take 10 mg by mouth once daily. levothyroxine (SYNTHROID) 25 mcg tablet Take 25 mcg by mouth every morning. Take On an Empty Stomach fluticasone (FLONASE) 50 mcg/actuation nasal spray oxybutynin XL (DITROPAN XL) 5 mg 24 hr tablet loratadine (CLARITIN) 10 mg tablet Loratadine Active 1 TAB Oral Daily November 11, 2018 10:56am gabapentin (NEURONTIN) 300 mg capsule 300 mg. diclofenac potassium (CATAFLAM) 50 mg tablet Take 50 mg by mouth. MAGNESIUM ORAL Take 800 mg by mouth. mirtazapine (REMERON) 15 mg tablet Take 15 mg by mouth daily at bedtime. Docusate Sodium 100 mg tab Take 1 tablet by mouth as needed. Calcium-Vitamin D3-Vitamin K 500-500-40 mg-unit-mcg chew Take 2 tablets by mouth once daily. Ascorbic Acid 1,000 mg tablet Take 1,000 mg by mouth once daily. MULTI-VITAMIN ORAL Take 1 tablet by mouth once daily. ibuprofen (MOTRIN) 200 mg tablet Take 200 mg by mouth every 6 hours as needed. omeprazole (PRILOSEC) 20 mg capsule Take 20 mg by mouth as needed. aspirin, enteric coated (ASPIRIN, ENTERIC COATED) 81 mg EC tablet Take 81 mg by mouth once daily. pravastatin (PRAVACHOL) 40 mg tablet Take 40 mg by mouth once daily. ALPRAZolam (XANAX) 0.5 mg tablet Take 0.5 mg by mouth at bedtime as needed. anastrozole (ARIMIDEX) 1 mg tablet Take 1 tablet by mouth once daily. oxyCODONE-acetaminophen (PERCOCET) 7.5-325 mg tablet Take 1 tablet by mouth every 4 hours as needed. LABORATORY VALUES: WBC (k/uL) Date Value 06/21/2023 7.77 RBC (m/uL) Date Value 06/21/2023 4.29 Hemoglobin (g/dL) Date Value 06/21/2023 13.4 Hematocrit (%) Date Value 06/21/2023 41.0 MCV (fL) Date Value 06/21/2023 95.6 MCH (pg) Date Value 06/21/2023 31.2 MCHC (g/dL) Date Value 06/21/2023 32.7 RDW-CV (%) Date Value 06/21/2023 12.9 Platelet Count (k/uL) Date Value 06/21/2023 261 MPV (fL) Date Value 06/21/2023 10.4 Glucose (mg/dL) Date Value 06/21/2023 97 BUN (mg/dL) Date Value 06/21/2023 15 Creatinine (mg/dL) Date Value 06/21/2023 0.69 Sodium (mmol/L) Date Value 06/21/2023 140 Potassium (mmol/L) Date Value 06/21/2023 4.3 Chloride (mmol/L) Date Value 06/21/2023 104 CO2 (mmol/L) Date Value 06/21/2023 28 Protein, Total (g/dL) Date Value 06/21/2023 6.9 Albumin (g/dL) Date Value 06/21/2023 4.6 Calcium, Total (mg/dL) Date Value 06/21/2023 9.5 Alkaline Phosphatase (U/L) Date Value 06/21/2023 54 Bilirubin, Total (mg/dL) Date Value 06/21/2023 0.5 AST (U/L) Date Value 06/21/2023 23 ALT (U/L) Date Value 06/21/2023 21 DIAGNOSIS: (Z79.811) Aromatase inhibitor use (primary encounter diagnosis) Plan: DXA-AXIAL SKELETON WITH VFA, BD DXA TRABECULAR BONE SCORE (TBS) (Z85.3) History of left breast cancer PAST MEDICAL HISTORY Diagnosis Date Anxiety Aromatase inhibitor use 02/12/2020 Arthritis Bipolar 1 disorder (HCC) Breast CA (HCC) left breast Carpal tunnel syndrome Depression Esophageal reflux Hiatal hernia Hyperlipidemia Insomnia Migraine headache Osteopenia Urinary incontinence PAST SURGICAL HISTORY Procedure Laterality Date BREAST BIOPSY BREAST LUMPECTOMY HX Left 07/2015 CARPAL TUNNEL COLONSCOPY SCREENING HIGH RISK EGD HEMORRHOIDECTOMY 02/05/2015 OTHER SURGICAL HISTORY (PLEASE SPECIFY) HX 02/05/2006 lumbar spine fusion REMV CATARACT EXTRACAP,INSERT LENS TONSILLECTOMY HX TOTAL ABDOM HYSTERECTOMY Social History Tobacco Use Smoking status: Former Smokeless tobacco: Never Vaping Use Vaping Use: Never used Substance Use Topics Alcohol use: Yes Comment: rarely Drug use: Never FAMILY HISTORY Problem Relation Age of Onset Cancer Paternal Grandfather Prostate Cancer Father Dementia Mother Diabetes Mother Kidney Disease Sister Kidney Disease Brother I spent a total of 30 minutes on the date of the service which included preparing to see the patient, [id number] patient care, completing clinical documentation, obtaining and/or reviewing separately obtained history, performing a medically appropriate examination, counseling and educating the patient/family/caregiver, ordering medications, tests, or procedures, and independently interpreting results (not separately reported). Joey Montejo MD, CPE [facility] Provided at: [place], [place] Scribe Attestation: This note was scribed by Laura Rivas on June 21, 2023 under the direction and supervision of Dr. Joey Montejo. I attest that all of the information documented is correct to the best of my knowledge. Provider Attestation: I, Joey Montejo MD, attest that all information documented by the above scribe is correct, and was supervised by me and under my direction. CC: Dr. Musa Patel II, MD [address] [id number] documented in this encounter [facility] 07-06-2022 Note HNO ID: [id number] Author: Joey Montejo MD Service: ? Author Type: Physician Type: Progress Notes Filed: 07/09/2022 4:35 PM Note Text: NAME: Fatou Taylor [facility] NO.: [id number] DATE OF SERVICE: July 06, 2022 ([facility]) Some elements in this clinic note that are critical to medical decision making have been carefully reviewed and included from a prior clinic note dated: January 05, 2022 ([place]) Referring Provider: Dr. Ruvalcaba Additional Clinicians involved in Fatou Taylor's care: CC: Follow-up for breast cancer. ASSESSMENT: This is a 66 year old woman with early stage left breast infiltrating ductal grade 2 cancer ER/NV positive HER-2/connie negative status post lumpectomy with axillary rhiannon dissection followed by radiation and adjuvant estrogen suppression in 2016. She was having severe night sweats on Arimidex and have been getting worse over the past couple years so we stopped Arimidex but symptoms didn't resolve so continued until recently Prior history of hemorrhoidectomy with findings of high-grade squamous intraepithelial dysplasia - 2016. PLAN: Zometa today then discontinue RTC 12 months 1-2 weeks after Mammography - labs same day repeat exam - 30 mins Consider DXA to see if we need more Zometa. HPI: Updated Visit, July 06, 2022: Fatou reports left arm pain - may have some symptom relief with lymphedema specialist although I could not feel much edema. 06/09/2022 Mammo screening BiRads 2. Updated Visit, January 05, 2022: Moved back from [place] couldn't cope and was getting depressed. Mammograms done last June. Bone density up to date. Labs stable. Will obtain mammograms in June 2022 in addition to Zometa. When she returns after mammograms I will see her and examine her. She elected to stop Arimidex having completed approximately 5-6 years. Updated Visit, October 21, 2020: 65 yo woman with left ER + breast cancer. 08/18/2020 Mammograms Birads-2 Relapsed with smoking but is trying to quit again. Breast exam unchanged. Continue taking Hi + Vit D. Needs surveillance for high-grade squamous intraepithelial dysplasia Updated Visit, March 18, 2020: Fatou is a 64-year-old woman with a prior history of early stage left breast cancer and had been on Arimidex since late 2015. She had complained of worsening sweats And so we had her hold the Arimide for 1 month. She returns today and has had no change off of Arimidex so will restart it. She has quit smoking and it's possible that sweats are from her body's enhanced response to her lung inflammation and trying to clear this. Initial Visit, February 12, 2020: Fatou is a 64-year-old woman with a prior history of early stage left breast cancer currently on Arimidex since late 2015. She has been followed up [facility] in [place] but is transferring her care here. Historically, she presented July of 2015 in consultation with an early stage breast cancer. ` For a workup of a breast mass on mammography she was taken to stereotactic biopsy June 25, 2015 with the findings of a 0.5 cm grade 2 breast cancer on the left. The cancer was ER and NV positive and HER 2 negative. The patient was then taken back for lumpectomy and axillary node dissection. Pathology showed a 0.5 cm grade 2 breast cancer with 1 sentinel lymph node negative for metastasis. The total dimension of the cancer appears to be around 1 cm. At the same time she had a separate issue Concerning her hemorrhoids and had a hemorrhoidectomy and sphincterotomy. Pathology for this showed focal high-grade squamous intraepithelial dysplasia at the squamocolumnar junction. has 1 son. Severe night sweats for several year no early satiety and no weight loss. Trying to quit smoking. REVIEW OF SYSTEMS Per HPI and otherwise negative by full review of organ systems. ECOG PERFORMANCE STATUS: 0 PHYSICAL EXAMINATION: Vitals: BP 134/64 Pulse 63 Temp (Src) 97.8 (Temporal) Resp 16 Wt 153 lb 3.2 oz (69.5kg) SpO2 98% Body surface area is 1.75 meters squared. Exam limited to gross visualization where appropriate. Gen.: This is an age-appropriate patient in no acute distress. Head: Appears atraumatic with no visible lesions. Eyes: Pupils equally round and reactive to light, extraocular muscles are intact. Neck: Supple. Respiratory: Appears to be respiring comfortably. Neurologic: Nonfocal to gross visualization. Alert and oriented ?3. Psychiatric: No evidence of inappropriate anxiety or depression. Skin: Visible areas of skin without rash, lesions, wounds or petechiae. Lymph node exam: No appreciable lymphadenopathy in cervical supraclavicular or axillary lymph node chains. Chaperoned Breast Exam(Neha Dai) normal right breast with surgical defect on the left breast but both sides were otherwise normal with no nipple inversion or discharge. Left arm is sore but reproducible tension in left shoulder a (more content not included)... [facility] 07-06-2022 Instructions Joey Montejo MD - 07/06/2022 2:10 PM EDT Zometa today then discontinue RTC 12 months 1-2 weeks after Mammography - labs same day repeat exam - 30 mins Consider DXA to see if we need more Zometa. documented in this encounter [facility] 07-06-2022 History of Present illness Narrative Images from the original note were not included. NAME: Fatou Taylor CLINIC NO.: [id number] DATE OF SERVICE: July 06, 2022 ([facility]) Some elements in this clinic note that are critical to medical decision making have been carefully reviewed and included from a prior clinic note dated: January 05, 2022 ([facility]) Referring Provider: Dr. Ruvalcaba Additional Clinicians involved in Fatou Taylor's care: CC: Follow-up for breast cancer. ASSESSMENT: This is a 66 year old woman with early stage left breast infiltrating ductal grade 2 cancer ER/NV positive HER-2/connie negative status post lumpectomy with axillary rhiannon dissection followed by radiation and adjuvant estrogen suppression in 2015. She was having severe night sweats on Arimidex and have been getting worse over the past couple years so we stopped Arimidex but symptoms didn't resolve so continued until recently Prior history of hemorrhoidectomy with findings of high-grade squamous intraepithelial dysplasia - 2016. PLAN: Zometa today then discontinue RTC 12 months 1-2 weeks after Mammography - labs same day repeat exam - 30 mins Consider DXA to see if we need more Zometa. HPI: Updated Visit, July 06, 2022: Fatou reports left arm pain - may have some symptom relief with lymphedema specialist although I could not feel much edema. 06/09/2022 Mammo screening BiRads 2. Updated Visit, January 05, 2022: Moved back from [place] couldn't cope and was getting depressed. Mammograms done last June. Bone density up to date. Labs stable. Will obtain mammograms in June 2022 in addition to Zometa. When she returns after mammograms I will see her and examine her. She elected to stop Arimidex having completed approximately 5-6 years. Updated Visit, October 21, 2020: 65 yo woman with left ER + breast cancer. 08/18/2020 Mammograms Birads-2 Relapsed with smoking but is trying to quit again. Breast exam unchanged. Continue taking Hi + Vit D. Needs surveillance for high-grade squamous intraepithelial dysplasia Updated Visit, March 18, 2020: Fatou is a 64-year-old woman with a prior history of early stage left breast cancer and had been on Arimidex since late 2015. She had complained of worsening sweats And so we had her hold the Arimide for 1 month. She returns today and has had no change off of Arimidex so will restart it. She has quit smoking and it's possible that sweats are from her body's enhanced response to her lung inflammation and trying to clear this. Initial Visit, February 12, 2020: Fatou is a 64-year-old woman with a prior history of early stage left breast cancer currently on Arimidex since late 2015. She has been followed up [facility] in [place] but is transferring her care here. Historically, she presented July of 2015 in consultation with an early stage breast cancer. ` For a workup of a breast mass on mammography she was taken to stereotactic biopsy June 25, 2015 with the findings of a 0.5 cm grade 2 breast cancer on the left. The cancer was ER and NV positive and HER 2 negative. The patient was then taken back for lumpectomy and axillary node dissection. Pathology showed a 0.5 cm grade 2 breast cancer with 1 sentinel lymph node negative for metastasis. The total dimension of the cancer appears to be around 1 cm. At the same time she had a separate issue Concerning her hemorrhoids and had a hemorrhoidectomy and sphincterotomy. Pathology for this showed focal high-grade squamous intraepithelial dysplasia at the squamocolumnar junction. has 1 son. Severe night sweats for several year no early satiety and no weight loss. Trying to quit smoking. REVIEW OF SYSTEMS Per HPI and otherwise negative by full review of organ systems. ECOG PERFORMANCE STATUS: 0 PHYSICAL EXAMINATION: Vitals: BP 134/64 Pulse 63 Temp (Src) 97.8 (Temporal) Resp 16 Wt 153 lb 3.2 oz (69.5kg) SpO2 98% Body surface area is 1.75 meters squared. Exam limited to gross visualization where appropriate. Gen.: This is an age-appropriate patient in no acute distress. Head: Appears atraumatic with no visible lesions. Eyes: Pupils equally round and reactive to light, extraocular muscles are intact. Neck: Supple. Respiratory: Appears to be respiring comfortably. Neurologic: Nonfocal to gross visualization. Alert and oriented 3. Psychiatric: No evidence of inappropriate anxiety or depression. Skin: Visible areas of skin without rash, lesions, wounds or petechiae. Lymph node exam: No appreciable lymphadenopathy in cervical supraclavicular or axillary lymph node chains. Chaperoned Breast Exam(Neha Dai) normal right breast with surgical defect on the left breast but both sides were otherwise normal with no nipple inversion or discharge. Left arm is sore but reproducible tension in left shoulder and arm. Compression seemed to ease. ALLERGIES: ALLERGIES No Known Allergies MEDICATIONS: polyethylene glycol 3350 (PURELAX ORAL) Take by mouth. zoledronic acid (ZOMETA INTRAVENOUS) Inject intravenously every 6 hours as needed. CALCIUM ORAL Take by mouth. PARoxetine (PAXIL) 10 mg tablet Take 10 mg by mouth once daily. levothyroxine (SYNTHROID) 25 mcg tablet Take 25 mcg by mouth every morning. Take On an Empty Stomach fluticasone (FLONASE) 50 mcg/actuation nasal spray loratadine (CLARITIN) 10 mg tablet Loratadine Active 1 TAB Oral Daily November 11, 2018 10:56am gabapentin (NEURONTIN) 300 mg capsule 300 mg. diclofenac potassium (CATAFLAM) 50 mg tablet Take 50 mg by mouth. MAGNESIUM ORAL Take 800 mg by mouth. Ascorbic Acid 1,000 mg tablet Take 1,000 mg by mouth once daily. MULTI-VITAMIN ORAL Take 1 tablet by mouth once daily. omeprazole (PRILOSEC) 20 mg capsule Take 20 mg by mouth as needed. pravastatin (PRAVACHOL) 40 mg tablet Take 40 mg by mouth once daily. ALPRAZolam (XANAX) 0.5 mg tablet Take 0.5 mg by mouth at bedtime as needed. anastrozole (ARIMIDEX) 1 mg tablet Take 1 tablet by mouth once daily. oxybutynin XL (DITROPAN XL) 5 mg 24 hr tablet mirtazapine (REMERON) 15 mg tablet Take 15 mg by mouth daily at bedtime. Docusate Sodium 100 mg tab Take 1 tablet by mouth as needed. Calcium-Vitamin D3-Vitamin K 500-500-40 mg-unit-mcg chew Take 2 tablets by mouth once daily. oxyCODONE-acetaminophen (PERCOCET) 7.5-325 mg tablet Take 1 tablet by mouth every 4 hours as needed. ibuprofen (MOTRIN) 200 mg tablet Take 200 mg by mouth every 6 hours as needed. aspirin, enteric coated (ASPIRIN, ENTERIC COATED) 81 mg EC tablet Take 81 mg by mouth once daily. LABORATORY VALUES: WBC (k/uL) Date Value 07/06/2022 6.87 RBC (m/uL) Date Value 07/06/2022 4.28 Hemoglobin (g/dL) Date Value 07/06/2022 13.5 Hematocrit (%) Date Value 07/06/2022 41.9 MCV (fL) Date Value 07/06/2022 97.9 MCH (pg) Date Value 07/06/2022 31.5 MCHC (g/dL) Date Value 07/06/2022 32.2 RDW-CV (%) Date Value 07/06/2022 12.7 Platelet Count (k/uL) Date Value 07/06/2022 257 MPV (fL) Date Value 07/06/2022 10.1 Glucose (mg/dL) Date Value 07/06/2022 103 (H) BUN (mg/dL) Date Value 07/06/2022 15 Creatinine (mg/dL) Date Value 07/06/2022 0.63 Sodium (mmol/L) Date Value 07/06/2022 138 Potassium (mmol/L) Date Value 07/06/2022 4.4 Chloride (mmol/L) Date Value 07/06/2022 104 CO2 (mmol/L) Date Value 07/06/2022 27 Protein, Total (g/dL) Date Value 07/06/2022 6.8 Albumin (g/dL) Date Value 07/06/2022 4.6 Calcium, Total (mg/dL) Date Value 07/06/2022 9.6 Alkaline Phosphatase (U/L) Date Value 07/06/2022 51 Bilirubin, Total (mg/dL) Date Value 07/06/2022 0.6 AST (U/L) Date Value 07/06/2022 20 ALT (U/L) Date Value 07/06/2022 18 DIAGNOSIS: (C50.012, Z17.0) Malignant neoplasm of areola of left breast in female, estrogen receptor positive (HCC) (primary encounter diagnosis) Plan: FIDEL SCREENING, CBC + DIFF, COMP METABOLIC PANEL, DISCONTINUED: PHARMACY COMMUNICATION PATIENT ARRIVED, DISCONTINUED: zoledronic bm-lkgphydp-0.9NaCl 4 mg iv piggyback 100 mL (ZOMETA), DISCONTINUED: sodium chloride 0.9 % (flush) 10-20 mL (BD POSIFLUSH) (Z12.39) Breast screening Plan: FIDEL SCREENING, CBC + DIFF, COMP METABOLIC PANEL (Z79.811) Aromatase inhibitor use Plan: FIDEL SCREENING, CBC + DIFF, COMP METABOLIC PANEL, DISCONTINUED: PHARMACY COMMUNICATION PATIENT ARRIVED, DISCONTINUED: zoledronic lu-ehgbpszh-9.9NaCl 4 mg iv piggyback 100 mL (ZOMETA), DISCONTINUED: sodium chloride 0.9 % (flush) 10-20 mL (BD POSIFLUSH) PAST MEDICAL HISTORY Diagnosis Date Anxiety Aromatase inhibitor use 02/12/2020 Arthritis Bipolar 1 disorder (HCC) Breast CA (HCC) left breast Carpal tunnel syndrome Depression Esophageal reflux Hiatal hernia Hyperlipidemia Insomnia Migraine headache Osteopenia Urinary incontinence PAST SURGICAL HISTORY Procedure Laterality Date BREAST BIOPSY BREAST LUMPECTOMY HX Left 07/2015 CARPAL TUNNEL COLONSCOPY SCREENING HIGH RISK EGD HEMORRHOIDECTOMY 02/05/2015 OTHER SURGICAL HISTORY (PLEASE SPECIFY) HX 02/05/2006 lumbar spine fusion REMV CATARACT EXTRACAP,INSERT LENS TONSILLECTOMY HX TOTAL ABDOM HYSTERECTOMY Social History Tobacco Use Smoking status: Former Smokeless tobacco: Never Vaping Use Vaping Use: Never used Substance Use Topics Alcohol use: Yes Comment: rarely Drug use: Never FAMILY HISTORY Problem Relation Age of Onset Cancer Paternal Grandfather Prostate Cancer Father Dementia Mother Diabetes Mother Kidney Disease Sister Kidney Disease Brother I spent a total of 30 minutes on the date of the service which included preparing to see the patient, [id number] patient care, completing clinical documentation, obtaining and/or reviewing separately obtained history, performing a medically appropriate examination, counseling and educating the patient/family/caregiver, ordering medications, tests, or procedures, and independently interpreting results (not separately reported). Joey Montejo MD, CPE Hematology and Oncology Services Provided at: [place], [place] CC: Dr. 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 Education about the need to use PPI medications continually given to patient as well. patient encouraged to stop smoking repeat EGD every 3 years placed in recall system continue omeprazole 20mg daily - advised pt to take 30 minutes prior to the first meal of the day. June, GERD (gastroesopha geal reflux disease) (ICD-10 - K21.9) Continue Omeprazole Pt to call if symptoms worsen Follow up in 1 year [facility] of Present illness Narrative* JASS Corbin - 01/10/2022 4:24 PM EST SOCIAL WORK FOLLOW UP NOTE: [facility] Date of service:01/10/22 Fatou Taylor is being seen for a follow up social work visit. Today's visit includes: patient TOPICS ADDRESSED: Advance Directives PLAN: Continue follow up as needed Assigned SW listed in Care Team tab: Yes Patient completed a DPOA-HC and a LW. SW gave a copy of the Advance Directives to Medical Records to be filed into [employer]. Patient nominated her niece Cece as her agent. SW will remain available and will follow up as appropriate. AV Corbin [facility] Miscellaneous Notes* Telephone Encounter - Paula Maddox - 01/09/2022 11:30 AM EST Order signed. Faxed order to [facility]. Paula Maddox * Telephone Encounter - Paula Maddox - 01/06/2022 9:[address] order for Screening Mammogram in June. Thank you! Paula Maddox [facility] Miscellaneous Notes* Telephone Encounter - JASS Corbin - 01/06/2022 12:37 PM EST SOCIAL WORK FOLLOW UP NOTE: [facility] Date of service:01/06/22 Fatou Taylor is being seen for a follow up social work visit. Today's visit includes: patient TOPICS ADDRESSED: Advance Directives PLAN: Continue follow up as needed F/U APPOINTMENT: 01/10/22 at 3:15pm Assigned DARRELL listed in Care Team tab: Yes SW received an email from Dona Mitchell that this Patient is interested in completing her Advance Directives. DARRELL called Patient and set up an appointment to meet on 01/10/22 after her 3pm injection. SW will remain available and will follow up as appropriate. AV Corbin [facility] Miscellaneous Notes* Telephone Encounter - Gely Shin RN - 12/28/2021 11:36 AM EST Call received from pt stating she had moved to [place] for a while and is now back living in [place]. Pt states she needs to schedule a follow up visit with Dr Mcmanus. Pt has requested her records from [place] to be faxed to our office. Call transferred to PSS's to schedule. Gely Shin RN [facility] Miscellaneous Notes* Telephone Encounter - Joey Montejo MD - 04/26/2021 11:40 AM EDT Thanks Tiflynnette! - I appreciate you! * Telephone Encounter - Gely Rodarte - 04/26/2021 11:37 AM EDT I called her thank you! * Telephone Encounter - Joey Montejo MD - 04/26/2021 11:24 AM EDT OR there are several groups in the area - I trained with a brodie who is very good named Hema Farnsworth who is very good - I am out of contact with him though. Will you please pass on his name? * Telephone Encounter - Gely Rodarte - 04/21/2021 1:51 PM EDT Hi, Patient is going to be moving to [facility] she will need a recommendation for a doctor if you know any. Also, patient will need a refill on arimidex. [facility] Hospital Discharge instructions* Instructions* Michelle Donald RN - 02/12/2019 MYELOGRAM DISCHARGE INSTRUCTIONS Activity: BEDREST FOR THE NEXT 24 HOURS. Avoid strenuous activity such as bending at the waist or lifting heavy objects. Diet: Resume usual diet Medication: * Resume home medication unless otherwise instructed by your physician. * May take mild pain reliever, as needed, such as Acetaminophen or Ibuprofen. INSTRUCTIONS OR COMMENTS RELATIVE TO SPECIFIC EXAM PERFORMED: - May remove dressing in 24 hours. - May shower after 24 hours. - Do not lift anything over 10 pounds for the next 48 hours. - Drink plenty of fluids. - You may experience some soreness over the next 1 to 2 days. - For large amount of bleeding or drainage, Go to ER for evaluation. - If any signs of infection (redness, swelling, drainage/pus) at the site, Go to ER for evaluation. IF YOU DEVELOP ANY OF THE FOLLOWING SYMPTOMS, CONTACT PHYSICIAN LISTED BELOW: Physician performing procedure: - or , Ask to be put in contact with . After hours contact ER. * Extreme pain that increases after leaving the hospital * Active bleeding (refer to above instructions) * Chills, fever above 100 degrees Farenheit and fatigue. * Weakness, dizziness, lightheadedness or fainting. If you are unable to contact the above physician and you feel you have a major problem, please go to the Emergency Room for treatment. * Attachments The following attachments cannot be sent through Care Everywhere. * Myelogram (Filipino) documented in this encounterPixlee Phone: [phone] 779-798501-08-2020 Hospital Discharge instructions* Instructions* Michelle Donald RN - 02/12/2019 MYELOGRAM DISCHARGE INSTRUCTIONS Activity: BEDREST FOR THE NEXT 24 HOURS. Avoid strenuous activity such as bending at the waist or lifting heavy objects. Diet: Resume usual diet Medication: * Resume home medication unless otherwise instructed by your physician. * May take mild pain reliever, as needed, such as Acetaminophen or Ibuprofen. INSTRUCTIONS OR COMMENTS RELATIVE TO SPECIFIC EXAM PERFORMED: - May remove dressing in 24 hours. - May shower after 24 hours. - Do not lift anything over 10 pounds for the next 48 hours. - Drink plenty of fluids. - You may experience some soreness over the next 1 to 2 days. - For large amount of bleeding or drainage, Go to ER for evaluation. - If any signs of infection (redness, swelling, drainage/pus) at the site, Go to ER for evaluation. IF YOU DEVELOP ANY OF THE FOLLOWING SYMPTOMS, CONTACT PHYSICIAN LISTED BELOW: Physician performing procedure: - or , Ask to be put in contact with . After hours contact ER. * Extreme pain that increases after leaving the hospital * Active bleeding (refer to above instructions) * Chills, fever above 100 degrees Farenheit and fatigue. * Weakness, dizziness, lightheadedness or fainting. If you are unable to contact the above physician and you feel you have a major problem, please go to the Emergency Room for treatment. * Attachments The following attachments cannot be sent through Care Everywhere. 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 documented in this encounter [employer] Phone: evaluation note* Diagnosis Lumbar spondylosis Lumbosacral spondylosis without myelopathy Lumbar disc herniation Displacement of lumbar intervertebral disc without myelopathy Spinal stenosis, lumbar region with neurogenic claudication 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 documented in this encounter [employer] Work Phone: evaluation noteNo assessment information available [facility] Work Phone: Evaluation note* Diagnosis Aromatase inhibitor use- Primary Use of aromatase inhibitors Malignant neoplasm of areola of left breast in female, estrogen receptor positive (HCC) [facility] Diagnosis Malignant neoplasm of areola of left breast in female, estrogen receptor positive (HCC)- Primary Breast screening Breast screening, unspecified Aromatase inhibitor use Use of aromatase inhibitors [facility] Diagnosis Aromatase inhibitor use- Primary Use of aromatase inhibitors History of left breast cancer [facility] Diagnosis Chronic left shoulder pain- Primary Pain in joint, shoulder region Bilateral sciatica Sciatica Degeneration of intervertebral disc of lumbar region with discogenic back pain and lower extremity pain documented in this encounter [facility]* Diagnosis Chronic left shoulder pain- Primary Pain in joint, shoulder region Bilateral sciatica Sciatica Degeneration of intervertebral disc of lumbar region with discogenic back pain and lower extremity pain documented in this encounter [facility] HealthcareEvaluation [facility]* Diagnosis Chronic left shoulder pain- Primary Pain in joint, shoulder region Bilateral sciatica Sciatica Degeneration of intervertebral disc of lumbar region with discogenic back pain and lower extremity pain documented in this encounter [facility] Healthcare[facility] and physical note Author Santy Naranjo [facility] May 15, 2022 9:20am Note Date/Time May 15, 2022 9:2 0am [facility] [address] [place] [address] Gastroenterology H&P Signed Patient: Fatou Taylor MR#: [id number] : 1955 Acct:[id number] Age/Sex: 66 / F Adm Date: 3 Loc: Room: Type: [facility] Attending Dr: Santy Naranjo MD Copies to: MD Lorenza Mendoza PA-C~ Date of Service: 05/15/2022 HISTORY & PHYSICAL: Patient's history with special attention to the cardiovascular, pulmonary systems and the current problem was reviewed with the patient immediately prior to the procedure. Present medications and doses reviewed in the EMR. Allergies and pertinent laboratory tests were also reviewedat this time in the EMR. The physical examination, as below, was then performed. Indication, assessment and HPI: This is a 66-year-old female who presents for EGD to evaluate nausea, vomiting,, screening colonoscopy Family history of GI malignancy? No PHYSICAL EXAMINATION Mouth and Pharynx : Moist mucus membranes, normal dentition Cardiac: Regular rate, regular rhythm Pulmonary: Clear to auscultation bilaterally, no wheezing Neurological: Alert and oriented x3, no focal deficits noted Abdomen: Abdomen soft, non-tender REVIEW OF SYSTEMS Constitutional: Denies malaise, fevers Cardiovascular: Denies chest pain, palpitations Respiratory: Denies shortness of breath, wheezing Gastrointestinal: Per HPI Genitourinary: Denies dysuria, polyuria Musculoskeletal: Denies joint swelling, joint stiffness Neurological: Denies numbness, tingling Integumentary: Denies rashes, skin lesions Endocrine: Denies fatigue, weight loss Written informed consent obtained from the patient. Risks (including but not limited to perforation, infection, bloating, bleeding, need for emergent surgeryand loss of life), benefits and alternatives explained and questions answered. The patient verbalized understanding. Based on history patient is an appropriate candidate for the procedure. Santy Naranjo MD Documented By: Santy Naranjo MD 05/15/22918 Signed By: <Electronically signed by Santy Naranjo MD> 05/15/22919 [facility] Work Phone: History general Narrative - Reported* Type Description Date Medical History breast cancer 2016 Medical History hypercholesterolemia Medical History bipolar Medical History depression Medical History hypertension Surgical History CARPAL TUNNELON BOTH WRISTS 05, 07,08, 11 Surgical History trigger finger x2 Surgical History breast tumor Surgical History carpal tunnel release 2010 Surgical History tonsilectomy Surgical History Tonsillectomy Surgical History Cataract Surgical History Hysterectomy 2002 Surgical History dilation and curettage Surgical History trigger fingers Surgical History partial permanent na il avulsion to medial left hallux 2012 Surgical History Rectal Surgical History back surgeries x3 2007, 2017, 2 018 Surgical History Back surgery 2006 Surgical History Carpal tunnel release 2004 Surgical History EGD 2013 Surgical History nerve blocks 2014 Surgical History colonoscopy Surgical History left breast lumpecto my/lymph node dissection/hemorrhoidectomy 07/2015 Surgical History sigmoidoscopy with b iopsy- benign ( every 2 years) with Dr Garcia 01/2016 Surgical History Back surgery- Dr. Willard Olmstead Surgical History L5-S3 RFA 10/15/17 Surgical History Colonoscopy, WNL 09/2017 Surgical History L4-5 Lateral Anterior Fusion, P LIF L4-5 12/04/17 Surgical History Caudal ORESTES's, Lysis of Adhesion s 12/05/18 Surgical History Colonoscopy/EGD 02/25/2019 Hospitalization History see above [facility] Other Hospital Discharge instructions Additional Instructions DISCHARGE INSTRUCTIONS FOR UPPER ENDOSCOPY WHAT TO EXPECT: - You may feel full, gassy or cramping after your procedure. In some cases, this may be from a few hours to a day. Walking may help relieve the discomfort. - Your throat may feel sore today from the scope that the doctor passed through your throat to visualize your stomach. Take a throat lozenge or suck on ice to ease the discomfort. - You may notice some streaks of blood in your sputum if the doctor has taken a biopsy. - You should begin to recover from anesthesia within 1 hour of the procedure, however may feel groggy for the next 24 hours. DO's AND DON'Ts: - Call your doctor right away if you have a hard abdomen, severe pain, vomiting or if you cough up large amounts of blood. - Call your doctor if you develop any rashes, hives or difficulty breathing. - If you take 81 mg aspirin for your heart it is safe to resume this medication. - If you take other blood thinner medications your doctor will instruct you when these can safely be resumed. - Do NOT drive for 24 hours. - Do NOT operate machinery such as power tools, lawn mowers, snow blowers, sewing machines, etc. for 24 hours. - Avoid alcoholic beverages and drugs for allergies, nerves, or sleep. - Do NOT stay alone. Do NOT leave your child unattended. - Do NOT make important personal or business decisions or sign any legal documents. - Eat solid foods and drink liquids in smaller amounts than usual until normal appetite returns. If you should experience an upset stomach, liquids high in sugar content (soda, Rodríguez-Aid, non-acid juices) are recommended. - Do NOT smoke. - Do take it easy today. You need not stay in bed, but avoid strenuous activities such as jogging or working out. DISCHARGE INSTRUCTIONS FOR COLONOSCOPY WHAT TO EXPECT: - You may feel full, gassy or cramping after your procedure. In some cases, this may be from a few hours to a day. Walking may help relieve the discomfort. - If you have polyp(s) removed you may note some minor bloody discharge after your first bowel movements. - You should begin to recover from anesthesia within 1 hour of the procedure, however may feel groggy for the next 24 hours. DO's AND DON'Ts: - Call your doctor right away if you have a hard abdomen, sever pain, are passing lots of bright red blood or clots. - Call your doctor if you develop any rashes, hives or difficulty breathing. - Let your doctor know if you have not had a bowel movement by 3 days after your procedure. - If you take 81 mg aspirin for your heart it is safe to resume this medication. - If you take other blood thinner medications your doctor will instruct you when these can safely be resumed. - Do NOT drive for 24 hours. - Do NOT operate machinery such as power tools, lawn mowers, snow blowers, sewing machines, etc. for 24 hours. - Avoid alcoholic beverages and drugs for allergies, nerves, or sleep. - Do NOT stay alone. Do NOT leave your child unattended. - Do NOT make important personal or business decisions or sign any legal documents. - Eat solid foods and drink liquids in smaller amounts than usual until normal appetite returns. If you should experience an upset stomach, liquids high in sugar content (soda, Rodríguez-Aid, non-acid juices) are recommended. - You can resume normal activities tomorrow. FOLLOW UP & RECOMMENDATIONS: -Dr. Naranjo's office will schedule a follow-up appointment for you -start omeprazole 20 mg daily, 30 minutes before your first meal of the day -Notify the doctor if you have any problems. -Repeat colonoscopy in 10 years. -Follow up with PCP. - Office number [phone].[facility] Work Phone: Reason for referral (narrative)* Diagnostic Procedure Only (Routine) - Pending Review Specialty Diagnoses / Procedures Referred By Contac t Referred To Contact [facility] Diagnoses Malignant neoplasm of areola of left breast in female, estrogen receptor positive (HCC) Breast screening Aromatase inhibitor use Procedures FIDEL SCREENING SCREENING MAMMOGRAPHY BI 2-VIEW BREAST INC CAD Joey Montejo MD [address] [place] [address] [place] [address] [facility] [address] [place] [address] Referral ID Status Reason Start Date Expiration Date Visits Requested Visits Authorized [id number] Pending Review Auto-Generat ed Referral 06/29/2023 08/08/2023 1 [facility] Diagnostic Procedure Only (Routine) - Pending Review Specialty Diagnoses / Procedures Referred By Contac t Referred To Contact XR IMAGING Diagnoses Aromatase inhibitor use Procedures DXA-AXIAL SKELETON WITH VFA DXA BONE DENSITY STUDY AXIAL SKELETON Joey Montejo MD [address] [place] [address] [place] [address] [place] [id number] Referral ID Status Reason Start Date Expiration Date Visits Requested Visits Authorized [id number] Pending Review Auto-Generat ed Referral 06/21/2023 07/20/2024 1 1 [facility] Summary Purpose Family History Relationship Condition Age at Onset Recorded Date/T tarun Not Specified Diabetes mellitus Unknown Heart disease Unknown Advance Directives Documents on File Type Date Recorded Patient Technical Spec Expl anation Advance Directives and Living Will Power of Grading Supervisor Documents on File Type Date Recorded Patient Technical Spec Expl anation Advance Directive(s) 01/11/2022 Advance Directives Advance Directive Response Recorded Date/ Time Advance Directives No January 08, 2017 11:50am Documents on File Type Date Recorded Patient Technical Spec Expl anation Advance Directive(s) 01/11/2022 Advance Directives Reason for Referral Status Reason Specialty Diagnoses / Procedures Referred By Contact Referred To Contact Pending Review Diagnoses Lumbar spondylosis Lumbar disc herniation Spinal stenosis, lumbar region with neurogenic claudication Pseudoarthrosis of lumbar spine Procedures FL MYELOGRAM LUMBOSACRAL S&I Willadr Olmstead MD [address] [facility], [address] [place] [address] Status Reason Specialty Diagnoses / Procedures Referre d By Contact Referred To Contact [facility] Diagnoses Lumbar spondylosis Lumbar disc herniation Spinal stenosis, lumbar region with neurogenic claudication Pseudoarthrosis of lumbar spine Procedures CT Lumbar Spine W Contrast Willard Olmstead MD [address] [facility], [address] [place] [address] Chief Complaint and Reason for Visit Chief Complaint Black Tary Stools, R ecurrent Vomiting, Hx of Gastr Medications Administered Section Inactive Administered Medications - up to 3 most recent administrations Medication Order MAR Action Action Date Dose Rate Site zoledronic hc-rgdsletu-7.9NaCl 4 mg iv piggyback 100 mL (ZOMETA) 4 mg, INTRAVENOUS, Administer over 15 Minutes, ONCE, 1 dose, On Rebekah 07/06/22 at 1430, Hazardous Potential Reproductive Risk Drug: Use appropriate PPE. New Bag/Syringe/Bottle 07/06/2022 2:28 PM EDT 4 mg Additional Source Comments INFORMATION SOURCE (unrecogn ized section and content) DATE CREATED AUTHOR 02/15/2019 [facility] DATE CREATED AUTHOR AUTHOR'S ORGANIZ ATION 05/18/2022 [facility] DATE CREATED AUTHOR AUTHOR'S ORGANIZ ATION 06/21/2022 [facility] DATE CREATED AUTHOR AUTHOR'S ORGANIZ ATION 06/24/2023 [facility] DATE CREATED AUTHOR AUTHOR'S ORGANIZ ATION 11/14/2023 [facility] Special[facility] EPIC Reason for Visit (unrecogniz ed section and content) Status Reason Specialty Diagnoses / Procedures Referre d By Contact Referred To Contact Open Radiology Diagnoses Lumbar spondylosis Lumbar disc herniation Spinal stenosis, lumbar region with neurogenic claudication Pseudoarthrosis of lumbar spine Procedures CT Lumbar Spine W Contrast Willard Olmstead MD [address] [facility], [address] [place] [address] Status Reason Specialty Diagnoses / Procedures Re ferred By Contact Referred To Contact Authorized Radiology Diagnoses Spondylosis without myelopathy or radiculopathy, lumbar region Other intervertebral disc displacement, lumbar region Spinal stenosis, lumbar region with neurogenic claudication Unspecified fracture of unspecified lumbar vertebra, subsequent encounter for fracture with nonunion Procedures HC LUMBAR MYELOGRAM S&I HC CT L-SPINE W/ CONTRAST [facility] [address] [place] [address] Reason Comments Appointment Confirmation Reason Comments Care Coordination Follow up appointmen t Reason Comments Social Work Services Reason Comments Orders Specialty Diagnoses / Procedures Referred By Contac t Referred To Contact Diagnoses Malignant neoplasm of areola of left breast in female, estrogen receptor positive (HCC) Aromatase inhibitor use Procedures INJECTION, ZOLEDRONIC ACID, 1 MG Joey Montejo MD [address] [place] [address] Josesito Treat Spurgeon Mc [address] [place] [address] Referral ID Status Reason Start Date Expiration Date V isits Requested Visits Authorized [id number] Authorized 02/12/2020 06/30/2023 6 6 Reason Comments Breast Cancer Specialty Diagnoses / Procedures Referred By Contac t Referred To Contact Physical Therapy Diagnoses Chronic left shoulder pain Degenerative lumbar disc Bilateral sciatica Procedures [place] OFFICE/OUTPATIENT [facility] HIGH MDM 60 MINUTES Lorenza Santoro PA [address] [facility] [address] [place] [address] Monica Hightower PT Referral ID Status Reason Start Date Expiration Date Visits Requested Visits Authorized [id number] Authorized Specialty Services Required 10/17/2023 11/16/2023 8 8 Referral ID Status Reason Start Date Expiration Date V isits Requested Visits Authorized [id number] Closed Specialty Services Required 10/17/2023 11/16/2023 8 8 Source Comments (unrecognize d section and content) In the event this informatio n is protected by the Federal Confidentiality of Alcohol and Drug Abuse Patient Records regulations: The Federal rules restrict any use of the information to criminally investigate or prosecute any alcohol or drug abuse patient.[facility] the event this information is protected by the Federal Confidentiality of Alcohol and Drug Abuse Patient Records regulations: The Federal rules restrict any use of the information to criminally investigate or prosecute any alcohol or drug abuse patient.[facility] Hospital[facility] the event this information is protected by the Federal Confidentiality of Alcohol and Drug Abuse Patient Records regulations: The Federal rules restrict any use of the information to criminally investigate or prosecute any alcohol or drug abuse patient.[facility] the event this information is protected by the Federal Confidentiality of Alcohol and Drug Abuse Patient Records regulations: The Federal rules restrict any use of the information to criminally investigate or prosecute any alcohol or drug abuse patient.[facility] Hospital[facility] the event this information is protected by the Federal Confidentiality of Alcohol and Drug Abuse Patient Records regulations: The Federal rules restrict any use of the information to criminally investigate or prosecute any alcohol or drug abuse patient.[facility] Hospital[facility] the event this information is protected by the Federal Confidentiality of Alcohol and Drug Abuse Patient Records regulations: The Federal rules restrict any use of the information to criminally investigate or prosecute any alcohol or drug abuse patient.[facility] Hospital[facility] the event this information is protected by the Federal Confidentiality of Alcohol and Drug Abuse Patient Records regulations: The Federal rules restrict any use of the information to criminally investigate or prosecute any alcohol or drug abuse patient.[facility] Hospital[facility] the event this information is protected by the Federal Confidentiality of Alcohol and Drug Abuse Patient Records regulations: The Federal rules restrict any use of the information to criminally investigate or prosecute any alcohol or drug abuse patient.[facility] Care Teams (unrecognized sec tion and content) Stock Car Driver Relationship Specialty Start Date End Date Cecilio Patel II [address] [place] [address] PCP - General Internal Medicine 07/22/15 Stock Car Driver Relationship Specialty Start Date End Date Cecilio Patel II [address] [place] [place] [address] PCP - General Internal Medicine 07/22/15 Stock Car Driver Relationship Specialty Start Date End Date Cecilio Patel II [address] [place] [place] [address] PCP - General Internal Medicine 07/22/15 Christine Carlton LSW Betting Agency Manager 01/06/22 Stock Car Driver Relationship Specialty Start Date End Date Cecilio Patel II [address] [place] [place] [address] PCP - General Internal Medicine 07/22/15 Christine Carlton LSW Betting Agency Manager 01/06/22 Stock Car Driver Relationship Specialty Start Date End Date Cecilio Patel II [address] [place] [place] [address] PCP - General Internal Medicine 07/22/15 Christine Carlton LSW Betting Agency Manager 01/06/22 Team Status: Active Member Role Status Dates ADELITA Waggoner Primary Care Provider Active Team Status: Inactive Member Role Status Dates Santy Naranjo MD Attending Provider Active ADELITA Waggoner Primary Care Provider Active Stock Car Driver Relationship Specialty Start Date End Date Cecilio Patel II [address] [place] [address] PCP - General Internal Medicine 07/22/15 Christine Carlton LSW Betting Agency Manager 01/06/22 Stock Car Driver Relationship Specialty Start Date End Date Cecilio Patel II [address] [place] [place] [address] PCP - General Internal Medicine 07/22/15 Christine Carlton LSW Betting Agency Manager 01/06/22 Stock Car Driver Relationship Specialty Start Date End Date Cecilio Patel II, MD [address] [place] [address] PCP - General Internal Medicine 07/22/15 Christine Carlton LSW Betting Agency Manager 01/06/22 Stock Car Driver Relationship Specialty Start Date End Date Cecilio Patel MD [address] [place] [place] [address] PCP - General Internal Medicine 08/09/22 Stock Car Driver Relationship Specialty Start Date End Date Cecilio Patel MD [address] [place] [place] [address] PCP - General Internal Medicine 08/09/22 Stock Car Driver Relationship Specialty Start Date End Date Cecilio Patel MD [address] [place] [place] [address] PCP - General Internal Medicine 08/09/22 Stock Car Driver Relationship Specialty Start Date End Date Cecilio Patel MD [address] [place] [place] [address] PCP - General Internal Medicine 08/09/22 Stock Car Driver Relationship Specialty Start Date End Date Cecilio Patel MD [address] [place] [address] PCP - General Internal Medicine 08/09/22 Stock Car Driver Relationship Specialty Start Date End Date Cecilio Patel MD [address] [place] [address] PCP - General Internal Medicine 08/09/22 FOR RECORDS PERTAINING TO PATIENTS WHO ARE OR HAVE BEEN ENROLLED IN A CHEMICAL DEPENDENCY/SUBSTANCEABUSE PROGRAM, SOME INFORMATION MAY BE OMITTED. This clinical summary was aggregated from multiple sources. Caution should be exercised in using it in the provision of clinical care. This summary normalizes information from multiple sources, and as a consequence, information in this document may materially change the coding, format and clinical context of patient data. In addition, data may be omitted in some cases. CLINICAL DECISIONS SHOULD BE BASED ON THE PRIMARY CLINICAL RECORDS. [facility]. provides no warranty or guarantee of the accuracy or completeness of information in this document.
== END 2023-11-27 11:15 | disposition home or self-care (01) ==
LOC: RAD 11:16
PROVIDERS: PCP Physician Assistant; Visit Provider Physician Assistant
DX: M51.362 Other intervertebral disc degeneration, lumbar region with discogenic back pain and lower extremity pain (principal); M47.816 Spondylosis without myelopathy or radiculopathy, lumbar region; M47.817 Spondylosis without myelopathy or radiculopathy, lumbosacral region; J01.01 Acute recurrent maxillary sinusitis
CPT/HCPCS: 72114

== ENCOUNTER 2024-07-14 09:04 | Outpatient (OUT) | payer MEDICARE, SELFPAY ==
--- OUTSIDE RECORDS SUMMARY | 2024-07-14 09:08 | XMS_ITS | Encounter Summary ---
Author Organization [facility] Address [address] [facility] [place] [address] Care Team Providers Care Clinical Nutritionist Name Role Phone Cecilio Patel MD Primary Care Provider [phone] Cecilio Patel MD Unavailable [phone] Encounter Details Date Type Department Care Team (Late st Contact Info) Description 05/20/2024 Abstract [facility] [address] [facility] 110 [place] [address] Cecilio Patel MD [address] [facility] 110 [place] [address] Social History Tobacco Use Types Packs/Day Years Used Date Smoking Tobacco: Every Day Cigarettes Smokeless Tobacco: Never Comments:1-9 cigs/day Alcohol Use Standard Drinks/Week Comments Yes 0 (1 standard drink = 0.6 oz pure alcohol) Alcohol: 2 to 4 times a month. Caffeine; 1-2 cups/day PHQ-2 Answer Date Recorded Patient Health Questionnaire-2 Score 0 05/20/2024 Education Answer Date Recorded What is the highest level of school you have completed or the highest degree you have received? High school graduate 09/22/2022 Comments Unknown Sex and Gender Information Value Date Recorded Sex Assigned at Not on file Legal Sex Female 6:46 PM EDT Gender Identity Not on file Sexual Orientation Not on file Occupation Industry Job Start Date Job End Date Retired Not on file Not on file Not on file documented as of this encounter Functional Status * Over the past 2 weeks, how often have you been bothered by any of the following problems? Question Answer Date of Assessment Author Little interest or pleasure in doing things Not at all 05/20/2024 9:00 AM EDT Ines Matute LP N Feeling down, depressed, or hopeless Not at all 05/20/2024 9:00 AM EDT Ines Matute LP N Patient Health Questionnaire -2 Score 0 05/20/2024 9:00 AM EDT Ines Matute LP N * Question Answer Date of Assessment Author Trouble falling or staying asleep, or sleeping too much Not at all 05/20/2024 9:00 AM EDT Yessi Matute LPN Feeling tired or having david le energy Not at all 05/20/2024 9:00 AM EDT Ines Matute LP N Poor appetite or overeating Not at all 05/20/2024 9: 00 AM EDT Ines Matute LPN Feeling bad about yourself - or that you are a failure or have let yourself or your family down Not at all 05/20/2024 9:00 AM EDT Ines Matute LPN Trouble concentrating on thi ngs, such as reading the newspaper or watching television Not at all 05/20/2024 9:00 AM EDT Ines Matute LP N Moving or speaking so slowly that other people could have noticed? Or the opposite - being so fidgety or restless that you have been moving around a lot more than usual. Not at all 05/20/2024 9:00 AM EDT Ines Matute LP N Thoughts that you would be better off or hurting yourself in some way Not at all 05/20/2024 9:00 AM EDT Ines Matute L PN Patient Health Questionnaire -9 Score 0 05/20/2024 9:00 AM EDT Ines Matute LP N documented as of this encounter Plan of Treatment Not on file documented as of this encounter Visit Diagnoses Not on filedocumented in this encounter Additional Health Concerns Assessment Noted Time PHQ-9 Depression Total Score: 0 05/21/19 25 9:00 AM EDT documented as of this encounter Care Teams Clinical Nutritionist Relationship Specialty Start Date End Date Cecilio Patel MD [address] [place] [address] PCP - General Internal Medicine 08/09/22 Cecilio Patel MD [address] [facility] [address] [place] [address] PCP - [employer] 02/05/21 documented as of this encounter
--- OUTSIDE RECORDS SUMMARY | 2024-07-14 09:08 | XMS_ITS | Encounter Summary ---
Author Organization [facility] Address [address] [facility] [place] [address] Care Team Providers Care Duplicating Machine Mechanic Name Role Phone Cecilio Patel MD Primary Care Provider [phone] Cecilio Patel MD Unavailable [phone] Encounter Details Date Type Department Care Team (Late st Contact Info) Description 05/21/2024 Abstract [facility] [address] [facility] 110 [place] [address] Cecilio Patel MD [address] [facility] 110 [place] [address] Social History Tobacco Use Types Packs/Day Years [...] on file documented as of this encounter Plan of Treatment Not on file documented as of this encounter Visit Diagnoses Not on filedocumented in this encounter Additional Health Concerns Assessment Noted Time PHQ-9 Depression Total Score: 0 05/21/19 25 9:00 AM EDT documented as of this encounter Care Teams Duplicating Machine Mechanic Relationship Specialty Start Date End Date Cecilio Patel MD [address] [facility] [address] [place] [address] PCP - General Internal Medicine 08/09/22 Cecilio Patel MD [address] [facility] [address] [place] [address] PCP - [employer] 02/05/21 documented as of this encounter
--- OUTSIDE RECORDS SUMMARY | 2024-07-14 09:08 | XMS_ITS | Encounter Summary ---
Author Organization [facility] Address [address] [facility] [place] [address] Care Team Providers Care Industrial Gas Service Helper Name Role Phone Cecilio Patel MD Primary Care Provider [phone] Cecilio Patel MD Unavailable Encounter Details Date Type Department Care Team (Late st Contact Info) Description 03/25/2024 Abstract [facility] [address] [facility] 110 [place] [address] Cecilio Patel MD [address] [facility] 110 [place] [address] Social History Tobacco Use Types Packs/Day Years Used Date Smoking Tobacco: Every Day Cigarettes Smokeless Tobacco: Never Comments:1-9 cigs/day Alcohol Use Standard Drinks/Week Comments Yes 0 (1 standard drink = 0.6 oz pure alcohol) Alcohol: 2 to 4 times a month. Caffeine; 1-2 cups/day PHQ-2 Answer Date Recorded Patient Health Questionnaire-2 Score 0 08/10/2022 Education Answer Date Recorded What is the [...] Assessment Noted Time PHQ-9 Depression Total Score: 13 024 10:00 AM EDT documented as of this encounter Care Teams Industrial Gas Service Helper Relationship Specialty Start Date End Date Cecilio Patel MD [address] [facility] [address] [place] [address] PCP - General Internal Medicine 08/09/22 Cecilio Patel MD [address] [facility] 110 [place] [address] PCP - [employer] 02/05/21 documented as of this encounter
--- OUTSIDE RECORDS SUMMARY | 2024-07-14 09:08 | XMS_ITS | Encounter Summary ---
Author Organization [facility] Address [address] [facility] [place] [address] Care Team Providers Care Customs Patrol Officer Name Role Phone Cecilio Patel MD Primary Care Provider [phone] Cecilio Patel MD Unavailable [phone] Encounter Details Date Type Department Care Team (Late st Contact Info) Description 06/25/2023 Abstract [facility] [address] [facility] 110 [place] [address] Cecilio Patel MD [address] [facility] 110 [place] [address] Social History Tobacco Use Types Packs/Day Years [...] documented as of this encounter Care Teams Customs Patrol Officer Relationship Specialty Start Date End Date Cecilio Patel MD [address] [facility] 110 [place] [address] PCP - General Internal Medicine 08/09/22 Cecilio Patel MD [address] [facility] [address] [place] [address] PCP - [employer] 02/05/21 documented as of this encounter"
--- OUTSIDE RECORDS SUMMARY | 2024-07-14 09:08 | XMS_ITS | Encounter Summary ---
Author Organization [facility] Address [address] [facility] [place] [address] Care Team Providers Care Surgical Instrument Maker Name Role Phone Cecilio Patel MD Primary Care Provider [phone] Cecilio Patel MD Unavailable [phone] Encounter Details Date Type Department Care Team (Late st Contact Info) Description 05/14/2023 Clinisync Result Encounter [facility] External Department Unsolicited Neeraj Parrish, PA [address] [facility] [address] [place] [address] Social History Tobacco Use Types Packs/Day Years [...] on file documented as of this encounter Procedures Procedure Name Priority Date/Time Associated Diagnosis Comments CT LUNG SCREENING LOW DOSE 05/14/2023 10:32 AM EDT documented in this encounter Results * CT LUNG SCREENING LOW DOSE (05/14/2023 10:32 AM EDT) Anatomical Region Laterality Modality Other 05/14/2023 10:3 2 AM EDT Narrative 05/14/2023 10:34 [place] [address] CT Scan Report Signed Patient: FATOU TEAGUE MR#: [id number] : 1955 Acct:[id number] Age/Sex: 67 / F ADM Date: 05/14/23 Loc: US Attending Dr: NEERAJ PARRISH Ordering Physician: NEERAJ PARRISH Date of Service: 05/14/23 Procedure(s): CT lung screening low-dose Accession Number(s): [id number] cc: CECILIO PATEL [place] [address] Patient Name: FATOU TEAGUE MRN: [id number] date: 1955 Sex: F Assigned Patient Location: US Current Patient Location: [place] Accession/Order Number: [id number] Exam Date: 05/14/2023 08:37 Report Date: 05/14/2023 10:32 At the request of: NEERAJ PARRISH Procedure: CT lung screening low-dose EXAMINATION: CT lung screening low-dose HISTORY: cigarette nicotine dependence without complication F17.210 COMPARISON: CT LUNG CANCER SCREENING 04/11/2022 TECHNIQUE: Axial, Coronal, and Sagittal images were created without the administration of IV contrast material. Dose reduction techniques were achieved by using automated exposure control and/or adjustment of mA and/or kV according to patient size and/or use of iterative reconstruction technique. FINDINGS: LUNGS: Stable mild pleural scarring within posterior upper lobes bilaterally. Stable appearance of a few tiny nodules, largest is within the lateral lingula, 5 mm. PLEURA: No mass, effusion, or pneumothorax. VASCULATURE: No abnormality. SUSSY: No mass or pathologic adenopathy. MEDIASTINUM: No mass or pathologic adenopathy. CARDIAC: No enlargement, pericardial thickening, or pericardial effusion. AORTA: No aneurysm or dissection. CHEST WALL: No mass or axillary adenopathy BONES: No bone lesion or fracture. LIMITED ABDOMEN: No suspicious findings. Limited images of the upper abdomen. OTHER: Negative. CT/CT lung screening low-dose IMPRESSION: 1. Lung-RADS 2- Benign Appearance or Behavior. Nodules with a very low likelihood of becoming a clinically active cancer due to size or lack of growth. Follow-up CT Chest in 1 year. Electronically authenticated by: MATTHEW COYLE Date: 05/14/2023 10:32 Dictated By: Matthew Coyle M.D. Signed By: 05/14/23 1034 DD/ 1032 TD/TT: Lease Buyer: Procedure Note Radiology, Radiologist, MD - 05/14/2023 [place] [address] CT Scan Report Signed Patient: FATOU TEAGUE MMR#: [id number] : 1955cct:[id number] Age/Sex: 67 / FADM Date: 05/14/23 Loc: Attending Dr: NEERAJ PARRISH Ordering Physician: NEERAJ PARRISH Date of Service: 05/14/23 Procedure(s): CT lung screening low-dose Accession Number(s): [id number] cc: CECILIO PATEL [place] [id number] Patient Name: FATOU TEAGUE MRN: [id number] date: 1955 Sex: F Assigned Patient Location: Current Patient Location: [place] Accession/Order Number: [id number] Exam Date: 05/14/2023 08:37 Report Date: 05/14/2023 10:32 At the request of: NEERAJ PARRISH Procedure: CT lung screening low-dose EXAMINATION: CT lung screening low-dose HISTORY: cigarette nicotine dependence without complication F17.210 COMPARISON: CT LUNG CANCER SCREENING 04/11/2022 TECHNIQUE: Axial, Coronal, and Sagittal images were created without the administration of IV contrast material. Dose reduction techniques were achieved by using automated exposure control and/or adjustment of mA and/or kV according to patient size and/or use of iterative reconstruction technique. FINDINGS: LUNGS: Stable mild pleural scarring within posterior upper lobesbilaterally. Stable appearance of a few tiny nodules, largest is within the lateral lingula, 5 mm. PLEURA: No mass, effusion, or pneumothorax. VASCULATURE: No abnormality. SUSSY: No mass or pathologic adenopathy. MEDIASTINUM: No mass or pathologic adenopathy. CARDIAC: No enlargement, pericardial thickening, or pericardial effusion. AORTA: No aneurysm or dissection. CHEST WALL: No mass or axillary adenopathy BONES: No bone lesion or fracture. LIMITED ABDOMEN: No suspicious findings. Limited images of the upperabdomen. OTHER: Negative. CT/CT lung screening low-dose IMPRESSION: 1. Lung-RADS 2- Benign Appearance or Behavior. Nodules with a very low likelihood of becoming a clinically active cancer due to size or lack of growth. Follow-up CT Chest in 1 year. Electronically authenticated by: MATTHEW COYLE Date: 05/14/2023 10:32 Dictated By: Matthew Coyle M.D. Signed By:05/14/23 1034 DD/ 1032 TD/TT: Lease Buyer: Neeraj DIOR [facility] Final Result documented in this encounter Visit Diagnoses Not on filedocumented in this encounter Additional Health Concerns Assessment Noted Time PHQ-9 Depression Total Score: 13 024 10:00 AM EDT documented as of this encounter Care Teams Surgical Instrument Maker Relationship Specialty Start Date End Date Cecilio Patel MD [address] [facility] 110 [place] [address] PCP - General Internal Medicine 08/09/22 Cecilio Patel MD [address] [facility] 110 [place] [address] PCP - [employer] 02/05/21 documented as of this encounter
--- OUTSIDE RECORDS SUMMARY | 2024-07-14 09:08 | XMS_ITS | Encounter Summary ---
Author Organization [facility] Address [address] [facility] [place] [address] Care Team Providers Care Merchandising Execution Manager Name Role Phone Cecilio Patel MD Primary Care Provider [phone] Cecilio Patel MD Unavailable [phone] Encounter Details Date Type Department Care Team (Late st Contact Info) Description 12/20/2023 External Result Encounter [facility] External Department Unsolicited Lorenza Parrish, PA 112 [facility] [address] [place] [id number] Social History Tobacco Use Types Packs/Day Years [...] Name Priority Date/Time Associated Diagnosis Comments CT LUMBAR SPINE WO IV CONTRAST 12/20/2023 4:01 PM EST documented in this encounter Results * CT lumbar spine wo IV contrast (12/20/2023 4:01 PM EST) Anatomical Region Laterality Modality Spine, L-spine Computed Tomogra phy 12/20/2023 4:01 PM EST Impressions 12/20/2023 4:06 PM EST Posterior fusion and intervertebral fusion is noted from L4 through S1 with worsening adjacent segment degenerative change at L3-L4 as above. Similar significant degenerative changes are noted at L2-L3 with neural foraminal narrowing left greater than right. No fracture or subluxation. Impression dictated by: Nabeel Wallis M.D.12/20/2023 4:04 PM Dictation Location: [place] [address] Transcribed By: [facility] 12/20/23 1604 Dictated By: Nabeel Wallis II, MD 12/20/23 1601 Signed By: <Electronically signed by Nabeel Wallis II, MD in OV> 12/20/23 1604 Narrative 12/20/2023 4:06 PM EST [facility] [place] [address] CT Scan Report Signed Patient: Fatou Taylor MR#: [id number] [birth year] : 1955 Acct:[id number] Age/Sex: 68 / F ADM Date: 12/20/23 Loc: [facility][NOTE 3] Room: Type: [facility] Attending Dr: Lorenza GOODRICHC Copies to: Lorenza Parrish PA-C Ordering Provider: Lorenza Parrish PA-C Date of Service: 12/20/23 CT/CT lumbar spine wo con: M51.362,M47.816,M96.1,M54.16,M47.817 CT lumbar spine wo con 12/20/2023 8:16 AM History:Burning sensation in feet, right leg pain TECHNIQUE: Multi detector CT axial slices of the lumbar spine were obtained without IV contrast. Volumetric acquisition sagittal, coronal, and 3-D reconstructions were performed and reviewed on a separate workstation. CT was performed with one or more of the following dose reduction techniques: Automated exposure control, adjustment of the mA and/or kV according to patient size, or use of iterative reconstruction technique. COMPARISON: 09/16/2018 FINDINGS: There is preservation of the vertebral body heights. There is severe disc height loss with endplate sclerosis at L2-L3. There is posterior and intervertebral fusion from L4 through S1. There is posterior decompression at L5. Endplate osteophyte formation and facet hypertrophy contributing to neural foraminal stenosis at L2-L3, greater on the left. There is a broad-based disc bulge at L3-L4 contributing to spinal canal stenosis with facet hypertrophy contributing to bilateral neural foraminal narrowing. This is worse when compared to the prior exam. No fractures or dislocations are seen. The alignment of the lumbar spine is normal. Degenerative changes are noted in the sacroiliac joints. The paraspinous soft tissues are within normal limits. The visualized lung parenchyma is unremarkable. The visualized abdominal and pelvic viscera is unremarkable. CT/CT lumbar spine wo con Procedure Note Nabeel Wallis MD - 12/20/2023 [facility] [address] [place] [address] [place] [address] CT Scan Report Signed Patient: Fatou Taylor MMR#: [id number] 23 : 4Acct:[id number] Age/Sex: 68 / FADM Date: 12/20/23 Loc: [facility][NOTE 3] Room:Type: [facility] Attending Dr: Lorenza Parrish NP-C Copies to: Lorenza Parrish PA-C Ordering Provider: Lorenza Parrish PA-C Date of Service: 12/20/23 CT/CT lumbar spine wo con:M51.362,M47.816,M96.1,M54.16,M47.817 CT lumbar spine wo con 12/20/2023 8:16 AM History:Burning sensation in feet, right leg pain TECHNIQUE: Multi detector CT axial slices of the lumbar spine wereobtained without IV contrast. Volumetric acquisition sagittal, coronal, and 3-D reconstructions wereperformed and reviewed on a separate workstation. CT was performed with one or more of the followingdose reduction techniques: Automated exposure control, adjustment of the mA and/or kV according topatient size, or use of iterative reconstruction technique. COMPARISON: 09/16/2018 FINDINGS: There is preservation of the vertebral body heights. There is severe discheight loss with endplate sclerosis at L2-L3. There is posterior and intervertebral fusion from T0mmvutyu S1. There is posterior decompression at L5. Endplate osteophyte formation and facethypertrophy contributing to neural foraminal stenosis at L2-L3, greater on the left. There is [place]-based disc bulge at L3-L4 contributing to spinal canal stenosis with facet hypertrophy contributingto bilateral neural foraminal narrowing. This is worse when compared to the prior exam. Nofractures or dislocations are seen. The alignment of the lumbar spine is normal. Degenerativechanges are noted in the sacroiliac joints. The paraspinous soft tissues are within normal limits.The visualized lung parenchyma is unremarkable. The visualized abdominal and pelvic viscera isunremarkable. CT/CT lumbar spine wo con IMPRESSION: Posterior fusion and intervertebral fusion is noted from L4 through S1with worsening adjacent segment degenerative change at L3-L4 as above. Similar significant degenerative changes are noted at L2-L3 with neuralforaminal narrowing left greater than right. No fracture or subluxation. Impression dictated by: Nabeel Wallis M.D.12/20/2023 4:04 PM Dictation Location: [place] [address] Transcribed By: [facility] 12/20/23 1604 Dictated By: Nabeel Wallis II, MD 12/20/23 1601 Signed By: <Electronically signed by Nabeel Wallis II, MD inOV> 12/20/23 [address] PROCEDURES Final Result documented in this encounter Visit Diagnoses Not on filedocumented in this encounter Additional Health Concerns Assessment Noted Time PHQ-9 Depression Total Score: 13 05/06/ 024 10:00 AM EDT documented as of this encounter Care Teams Merchandising Execution Manager Relationship Specialty Start Date End Date Cecilio Patel MD [address] [place] [facility] 110 [place] [address] PCP - General Internal Medicine 08/09/22 Cecilio Patel MD [address] [facility] 110 [place] [address] BRIAN - [employer] 02/05/21 documented as of this encounter
--- OUTSIDE RECORDS SUMMARY | 2024-07-14 09:08 | XMS_ITS | Encounter Summary ---
Author Organization [facility] Address [address] [facility] [place] [address] Care Team Providers Care Painter Railroad Car Name Role Phone Cecilio Patel MD Primary Care Provider [phone] Cecilio Patel MD Unavailable [phone] Encounter Details Date Type Department Care Team (Late st Contact Info) Description 06/24/2024 Abstract [facility] 112 [facility] 110 [place] [address] Cecilio Patel MD 112 [facility] 110 [place] [address] Social History Tobacco Use Types Packs/Day Years [...] documented as of this encounter Care Teams Painter Railroad Car Relationship Specialty Start Date End Date Cecilio Patel MD [address] [place] [facility] 110 [place] [address] PCP - General Internal Medicine 08/09/22 Cecilio Patel MD [address] [place] [facility] 110 [place] [address] PCP - [employer] 02/05/21 documented as of this encounter
--- OUTSIDE RECORDS SUMMARY | 2024-07-14 09:08 | XMS_ITS | Encounter Summary ---
Author Organization [facility] Address [address] [facility] [place] [address] Care Team Providers Care Brass Plater Name Role Phone Cecilio Patel MD Primary Care Provider [phone] Cecilio Patel MD Unavailable [phone] Encounter Details Date Type Department Care Team (Late st Contact Info) Description 02/26/2024 Abstract [facility] 112 [facility] 110 [place] [address] Cecilio Patel MD [address] [place] [facility] 110 [place] [address] Social History Tobacco Use Types Packs/Day Years [...] documented as of this encounter Care Teams Brass Plater Relationship Specialty Start Date End Date Cecilio Patel MD [address] [place] [facility] 110 [place] [address] PCP - General Internal Medicine 08/09/22 Cecilio Patel MD [address] [place] [facility] 110 [place] [address] PCP - [employer] 02/05/21 documented as of this encounter
--- OUTSIDE RECORDS SUMMARY | 2024-07-14 09:08 | XMS_ITS | Clinical Summary ---
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 Active denosumab (Prolia) 60 MG/ML solution prefilled syringe as directed Subcutaneous Active Magnesium 300 MG capsule 1 (one) time each day at the same time. Active Melatonin 10 MG capsule as directed Orally Active polyethylene glycol, PEG, 3350 (MiraLax) 17 GM/SCOOP powder 1 (one) time each day at the same time. Active omeprazole (PriLOSEC) [address] capsule Take 1 capsule by mouth in the morning. Take before meals. 08/22/19 23 Active cyanocobalamin (Vitamin B-12) 1000 MCG tablet Take 1,000 mcg by mouth Daily Active cyclobenzaprine (Flexeril) 10 MG tabletIndications: Lumbar post-laminectomy syndrome TAKE 1 TABLET AT BEDTIME NEEDED FOR MUSCLE SPASMS 90 tablet 3 10/12/19 24 Active gabapentin (Neurontin) 300 MG capsuleIndications :Neuropathy Take 2 capsules (600 mg) by mouth in the morning and 2 capsules (600 mg) before bedtime. 200 capsule 3 11/13/19 24 Active ALPRAZolam (Xanax) 0.5 MG tabletIndications: Panic disorder with agoraphobia (CMS/HCC) Take 1 tablet (0.5 mg) by mouth 1 (one) time each day at the same time 30 tablet 01/08/20 24 Active fluticasone (Flonase) 50 MCG/ACT nasal sprayIndications:A llergic rhinitis, unspecified seasonality, unspecified trigger USE 1 SPRAY IN EACH NOSTRIL ONE TIME DAILY 32 g 3 02/10/19 25 Active loratadine (Claritin) 10 MG tablet Take by mouth Active guaiFENesin (Mucinex) 600 MG 12 hr tablet Take 1,200 mg by mouth in the morning and 1,200 mg before bedtime. Do not crush, chew, or split. Active levothyroxine (Synthroid, Levoxyl) 50 MCG tabletIndications: Acquired hypothyroidism (CMS/HCC) Take 1 tablet (50 mcg) by mouth in the morning. Take on an empty stomach. 30 tablet 1 05/21/19 25 Active PARoxetine (Paxil) 20 MG tabletIndications: Moderate episode of recurrent major depressive disorder (CMS/HCC) Take 1 tablet (20 mg) by mouth in the morning. 90 tablet 06/04/19 25 Active pravastatin (Pravachol) 40 MG tabletIndications: Mixed hyperlipidemia (CMS/HCC) Take 1 tablet (40 mg) by mouth at bedtime 100 tablet 3 06/11/19 25 Active Active Problems Problem Noted Date Diagnosed Date Bilateral sacroiliitis 05/05/2024 History of anal cancer 05/05/2024 History of breast cancer 05/05/2024 Spinal stenosis of lumbar re gion with neurogenic claudication 12/21/2023 Abnormal mammogram of left breast 11/08/2022 Chronic left shoulder pain 08/10/2022 Allergic rhinitis 08/02/2022 Atrophy of vagina 08/02/2022 Bilateral tinnitus 08/02/2022 Bipolar II disorder 08/02/2022 Centrilobular emphysema 08/02/2022 Cervical high risk HPV (human papillomavirus) te st positive 08/02/2022 Chronic ethmoidal sinusitis 08/02/2022 Chronic maxillary sinusitis 08/02/2022 Cigarette nicotine dependence without complicati on 08/02/2022 Cystocele, unspecified 08/02/2022 Degenerative disc disease, cervical 08/02/2022 Degenerative lumbar disc 08/02/2022 Disorder of female genital organs 08/02/2022 Hypothyroidism 08/02/2022 Diverticular disease of colon 08/02/2022 Esophageal reflux 08/02/2022 Estrogen deficiency 08/02/2022 Facet arthropathy, lumbar 08/02/2022 Spondylolisthesis, lumbar region 08/02/2022 History of hysterectomy 08/02/2022 Hot flashes 08/02/2022 Impaired fasting glucose 08/02/2022 Insomnia 08/02/2022 Lumbar paraspinal muscle spasm 08/02/2022 Lumbar post-laminectomy syndrome 08/02/2022 Cervical radiculopathy at C7 08/02/2022 Cervical spinal stenosis 08/02/2022 Lumbar radiculopathy, chronic 08/02/2022 Mixed hyperlipidemia 08/02/2022 Moderate episode of recurrent major depressive d isorder 08/02/2022 Osteopenia 08/02/2022 Pain in thoracic spine 08/02/2022 Panic disorder with agoraphobia 08/02/2022 Pharyngoesophageal dysphagia 08/02/2022 Pseudoarthrosis of lumbar spine 08/02/2022 Rectocele 08/02/2022 Sensorineural hearing loss, bilateral 08/02/2022 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 y 08/02/2022 Bilateral sciatica 11/17/2021 Anxiety state 07/12/2021 Neuropathy 07/12/2021 Family history of pancreatic cancer 06/23/2021 History of gastritis 10/19/2020 Chronic postoperative pain 04/26/2020 Aromatase inhibitor use 02/12/2020 Lumbosacral spondylosis without myelopathy 11/12 Skin abnormalities 07/13/2016 Asymptomatic varicose veins of bilateral lower e xtremities 07/10/2016 Bilateral leg pain 07/10/2016 Mixed stress and urge urinary incontinence 11/17 Resolved Problems Problem Noted Date Diagnosed Date Resolved Date Disorder of thyroid 08/02/2022 05/07/19 24 Malignant neoplasm involving both nipple and areola in female 08/02/2022 05/05/2024 Malignant neoplasm of upper- outer quadrant of left female breast 08/02/2022 05/05/2024 Malignant tumor of anus 08/02/2022 0302/2024 Mixed urge and stress incontinence 08/02/2022 05/07/2023 Other chronic postprocedural pain 08/02/2022 05/07/2023 Recurrent sinusitis 08/02/2022 05/21/19 Varicose veins of both lower extremities 08/02/2022 05/07/2023 Tobacco use 07/12/2021 05/07/2023 Intercostal pain 11/02/2016 05/20/2024 Encounters Date Type Department Care Team Description 06/24/2024 Abstract [facility] [address] [place] [address] Cecilio Patel MD 06/19/2024 Clinisync Result Encounter [facility] External Department Unsolicited Provider, Generic External Data 06/11/2024 Abstract [facility] [address] [facility] [address] [place] [address] Cecilio Patel MD 06/09/2024 Refill [facility] [address] [facility] [address] [place] [address] Cecilio Patel MD Mixed hyperlipidemia (CMS/HCC) 06/09/2024 Telephone [facility] EX[facility] DEP Viola Howell PT ORDER (Pt calling as she hasn't heard from [facility] about her PT she was ordered 3 weeks ago and inquiring about it.) 06/03/2024 Telephone [facility] [address] [facility] [address] [place] [address] Lorenza Parrish PA 05/21/2024 Abstract [facility] [address] [facility] [address] [place] [address] Cecilio Patel MD 05/20/2024 9:30 AM EDT Office Visit [facility] [address] [facility] [address] [place] [address] Lorenza Parrish PA Medicare annual wellness visit, subsequent (Primary Dx); ACP (advance care planning); Smoker; Cervical radiculopathy at C7; Cervical spinal stenosis; Chronic postoperative pain; Primary insomnia; Lumbar radiculopathy, chronic; Neuropathy; 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y; Centrilobular emphysema (CMS/HCC); Asymptomatic varicose veins of bilateral lower extremities; Diverticular disease of colon; Gastroesophageal reflux disease without esophagitis; History of anal cancer; History of gastritis; Pharyngoesophageal dysphagia; Rectocele; Atrophy of vagina; Cystocele, unspecified; Disorder of female genital organs; Mixed stress and urge urinary incontinence; Bilateral leg pain; Bilateral sacroiliitis; Chronic left shoulder pain; Degenerative disc disease, cervical; Degeneration of intervertebral disc of lumbar region with discogenic back pain and lower extremity pain; Facet arthropathy, lumbar; Lumbar paraspinal muscle spasm; Lumbosacral spondylosis without myelopathy; Osteopenia of multiple sites; Pseudoarthrosis of lumbar spine; Spinal stenosis of lumbar region with neurogenic claudication; Spondylolisthesis, lumbar region; Acquired hypothyroidism (CMS/HCC); Impaired fasting glucose; Chronic ethmoidal sinusitis; Chronic maxillary sinusitis; Abnormal mammogram of left breast; Seasonal allergic rhinitis due to pollen; Anxiety state (CMS/HCC); Aromatase inhibitor use; Bilateral sciatica; Bilateral tinnitus; Bipolar II disorder (CMS/HCC); Cervical high risk HPV (human papillomavirus) test positive; Cigarette nicotine dependence without complication; Estrogen deficiency; Family history of pancreatic cancer; History of breast cancer; History of hysterectomy; Hot flashes; Lumbar post-laminectomy syndrome; Mixed hyperlipidemia (CMS/HCC); Moderate episode of recurrent major depressive disorder (CMS/HCC); Pain in thoracic spine; Panic disorder with agoraphobia (CMS/HCC); Sensorineural hearing loss, bilateral; Skin abnormalities 05/20/2024 Abstract [facility] [address] [place] [id number] Cecilio Patel MD 05/20/2024 Bamboo flowsheet [facility] [address] [place] [id number] Lorenza Parrish PA 05/20/2024 Travel 05/14/2024 Orders Only [facility] [address] [facility] [address] [place] [id number] Lorenza Parrish PA Acquired hypothyroidism (CMS/HCC) (Primary Dx); Impaired fasting glucose; Seasonal allergic rhinitis due to pollen; Mixed hyperlipidemia (CMS/HCC); Medicare annual wellness visit, subsequent 05/05/2024 8:30 AM EDT Office Visit [facility] [address] [place] [id number] Lorenza Parrish, BARBY Acute non-recurrent maxillary sinusitis (Primary Dx); Seasonal allergic rhinitis due to pollen; Anxiety state (CMS/HCC); Bilateral sacroiliitis (CMS/HCC); Wheezing; History of anal cancer; History of breast cancer; Centrilobular emphysema (CMS/HCC); Major depressive disorder, recurrent, moderate (CMS/HCC); Bipolar II disorder (CMS/HCC) 05/05/2024 Telephone [facility] [address] [place] [address] Lorenza Parrish PA 05/05/2024 Bamboo flowsheet [facility] [address] [place] [phone] Lorenza Parrish PA 05/05/2024 Travel from Last 3 Months Immunizations Immunization Administration Dates Next Due Influenza, High Dose Seasona l, Preservative Free 11/01/2019,09/27/2018 Influenza, High-dose Seasona l, Quadrivalent, Preservative Free 11/01/2021,11/10/2020 Influenza, Seasonal, Quadriv alent, Adjuvanted 10/31/2022 Influenza, injectable, quadr ivalent, preservative free 10/12/2016,10/26/2015,11/17/2014,04/01 Influenza, seasonal, injecta ble, preservative free 12/10/2012 Influenza, seasonal, intrade rmal, preservative free 10/24/2017,10/17/2016 Pneumococcal Conjugate PCV 13 07/21/2019, 019 Pneumococcal Polysaccharide PPSV23 11/17/2014 SARS-CoV-2, Unspecified 11/01/2021 Tdap 07/02/2013 Zoster, Recombinant 01/12/2020 Zoster, live 11/01/2019,08/05/2013,07/09/2013 Family History Medical History Relation Name Comments Hepatitis Brother Hep C Kidney failure Brother Liver disease Brother Cancer Father Bladder Heart disease Maternal Grandfather Mental illness Maternal Grandfather Schizophrenia Maternal Grandfather Diabetes Maternal Grandmother Heart disease Maternal Grandmother Dementia Mother Diabetes Mother Heart disease Mother Hypertension Mother Mental illness Mother Stroke Mother Vascular disease Other Cancer Paternal Grandfather Bowel Obstruction Paternal Grandmother Kidney failure Sister Pancreatic cancer Sister No Known Problems Son Melanoma Neg Hx Relation Name Status Comments Brother 4 brothers Father Maternal Grandfather Maternal Grandmother Mother Other Family hx Paternal Grandfather Paternal Grandmother Sister 4 sisters Son Alive Social History Tobacco Use Types Packs/Day Years Used Date Smoking Tobacco: Every Day Cigarettes Smokeless Tobacco: Never Tobacco Cessation:Ready to Q uit: Not Asked; Counseling Given: Not Answered Comments:1-9 cigs/day Alcohol Use Standard Drinks/Week Comments [...] file Not on file Not on file Last Filed Vital Signs Vital Sign Reading Time Taken Comments Blood Pressure 158/84 05/20/2024 9:40 AM EDT Pulse 68 05/20/2024 9:40 AM EDT Temperature 36.8 C (98.3 F) 05/05/2024 8:35 AM EDT Respiratory Rate 16 05/20/2024 9:40 AM EDT Oxygen Saturation 94% 05/20/2024 9:40 AM EDT Inhaled Oxygen Concentration - - Weight 77.8 kg (171 lb 9.6 oz) 05/20/2024 9:40 A M EDT Height 160 cm (5' 3 ) 05/20/2024 9:40 AM EDT Body Mass Index 30.4 05/20/2024 9:40 AM EDT Plan of Treatment Health Maintenance Due Date Last Done Comments CT Colonography 1953 FIT-DNA 1955 FOBT 1955 Sigmoidoscopy 1955 FIT 09/19/2018 09/19/2017 Medicare Annual Wellness (AWV) 05/20/2025 0 05/20/2024, 05/07/2023, 10/12/2021, Additional history exists Colonoscopy 05/15/2032 05/15/2022, 12/06, 09/02/2012, Additional history exists Colorectal Cancer Screening 05/15/2032 Pneumococcal Vaccine: 65+ Years Discontinued 07/21/2019, 07/17/2018, 11/17/2014 Mammogram Discontinued 07/03/2023, 0506/2022, 06/21/2021, Additional history exists Influenza Vaccine Completed 11/02/2023, , 11/01/2021, Additional history exists Procedures Procedure Name Priority Date/Time Associated Diagnosis Comments [facility] COMP METAB 2000 PNL SERPL Routine 06/19/2024 1:26 PM EDT [facility] CBC W AUTO DIFF BLD Routine 06/19/2024 1:26 PM EDT T4, FREE Routine 05/14/2024 8:15 AM EDT TSH W/REFLEX TO FT4 Routine 05/14/2024 8 :15 AM EDT Acquired hypothyroidism ([facility]) Medicare annual wellness visit, subsequent LIPID PANEL Routine 05/14/2024 8:15 AM EDT Mixed hyperlipidemia ([facility]) Medicare annual wellness visit, subsequent HEMOGLOBIN A1C Routine 05/14/2024 8:15 AM EDT Impaired fasting glucose Medicare annual wellness visit, subsequent COMPREHENSIVE METABOLIC PANEL Routine 05/14/2024 8:15 AM EDT Impaired fasting glucose Mixed hyperlipidemia ([facility]/HCC) Medicare annual wellness visit, subsequent CBC (INCLUDES DIFF/PLT) Routine 05/14/2024 8:15 AM EDT Seasonal allergic rhinitis due to pollen Mixed hyperlipidemia ([facility]) Medicare annual wellness visit, subsequent MM TOMOSYNTHESIS SCREENING BI 07/03/2023 2:47 PM EDT COLONOSCOPY DIAGNOSTIC Routine 05/15/2022 3:45 PM EDT from Last 3 Months or Most Recently Relevant to Health Maintenance Results * [facility] CBC W AUTO DIFF BLD (06/19/2024 1:26 PM EDT) [facility] WBC # BLD AUTO 7.93 3.70 - 11.00 k/uL [facility] RBC # BLD AUTO 4.37 3.90 - 5.20 m/uL [facility] HGB BLD-MCNC 13.9 11.5 - 15.5 g/dL [facility] HCT VFR BLD AUTO 41.9 36.0 - 46.0 % [facility]CF MCV RBC AUTO 95.9 80.0 - 100.0 fL [facility]CF MCH RBC QN AUTO 31.8 26.0 - 34.0 pg [facility]CF MCHC RBC AUTO-MCNC 33.2 30.5 - 36.0 g/dL [facility] RDW RBC-RTO 13.1 11.5 - 15.0 % [facility] PLATELET # BLD AUTO 246 150 - 400 k/uL [facility]CF PMV BLD AUTO 10.6 9.0 - 12.7 fL [facility]CF [facility] NEUTROPHILS/LEUK NFR BLD AUTO 58.1 % [facility]CF NEUTROPHILS # BLD AUTO 4.62 1.45 - 7.50 k/uL [facility]CF LYMPHOCYTES/[place] NFR BLD AUTO 34.6 % [facility]CF LYMPHOCYTES # BLD AUTO 2.74 1.00 - 4.00 k/uL [facility]CF MONOCYTES/[place] NFR BLD AUTO 5.3 % [facility]CF MONOCYTES # BLD AUTO 0.42 <0.87 k/uL [facility]CF EOSINOPHIL/[place] NFR BLD AUTO 0.8 % [facility] CCF EOSINOPHIL # BLD AUTO 0.06 <0.46 k/uL [facility]CF BASOPHILS/[place] NFR BLD AUTO 0.8 % [facility] CCF BASOPHILS # BLD AUTO 0.06 <0.11 k/uL [facility] IMM GRANULOCYTES/[place] NFR BLD AUTO 0.4 % [facility] IMM GRANULOCYTES # BLD AUTO 0.03 <0.10 k/uL [facility]CF NRBC/100 WBC BLD-RTO 0.0 /100 WBC [facility]CF CCF NRBC # BLD AUTO <0.01 <0.01 k/uL [facility] DIFFERENTIAL METHOD BLD Auto [facility]CF 06/19/2024 1:26 PM EDT 06/19/2024 1:26 PM EDT Narrative PROSPERISYNC - 06/19/2024 1:28 PM EDT Specimen Type: BLOOD SPECIMEN Ordering Facility: [facility] Address: [address] [place], [place] [address] [id number] Original Ordering Provider: MARINE ALCANTARA us Generic External Data Provider CLINISYNC F inal Result [facility] [address] [place] [address] * (ABNORMAL) [facility] COMP METAB 2000 PNL SERPL (06/19/2024 1:26 PM EDT) [facility] PROT SERPL-MCNC 7.0 6.3 - 8.0 g/dL [facility]CF ALBUMIN SERPL-MCNC 4.7 3.9 - 4.9 g/dL CCF [facility]CF CALCIUM SERPL-MCNC 9.4 8.5 - 10.2 mg/dL C[facility]CF BILIRUB SERPL-MCNC 0.6 0.2 - 1.3 mg/dL C[facility] ALP SERPL-CCNC 54 34 - 123 U/L [facility]CF [facility] AST SERPL-CCNC 26 13 - 35 U/L [facility]CF CCF ALT SERPL-CCNC 21 7 - 38 U/L CCF CCF GLUCOSE SERPL-MCNC 141(H) 74 - 99 mg/dL [facility] Comment: The [place] Diabetes Association (ADA) provides guidance for cutoff [...] Standards of Medical Care in Diabetes 2016, [place] [employer]. Diabetes Care. 2016.39(Suppl 1). [facility] BUN SERPL-MCNC 10 7 - 21 mg/dL [facility] CREAT SERPL-MCNC 0.62 0.58 - 0.96 mg/dL CCF CCF SODIUM SERPL-SCNC 138 136 - 144 mmol/L CCF CCF POTASSIUM SERPL-SCNC 4.2 3.7 - 5.1 mmol/L CCF CCF CHLORIDE SERPL-SCNC 107 98 - 107 mmol/L CCF CCF CO2 SERPL-SCNC 21(L) 22 - 30 mmol/L CCF CCF ANION GAP SERPL-SCNC 10 8 - 15 mmol/L [facility] CREATININE + EGFR PNL SERPLBLD 96 >=60 mL/min/1.7 3m??? [facility] Comment:Estimated Glomerular Filtration Rate (eGFR) is calculated using the 2020 CKD-EPI creatinine equation. This equation utilizes serum creatinine, sex, and age as parameters. The creatinine assay has traceable calibration to isotope dilution- mass spectrometry. Refer to KDIGO guidelines for clinical interpretation. In patients with unstable renal function, e.g. those with acute kidney injury, the eGFR may not accurately reflect actual GFR. 06/19/2024 1:26 PM EDT 06/19/2024 1:26 PM EDT Narrative PRAKASH - 06/19/2024 1:49 PM EDT Specimen Type: BLOOD SPECIMEN Ordering Facility: [facility] Address: [address] [place] [id number] Original Ordering Provider: MARINE ALCANTARA us Generic External Data Provider CLINISYKRYSTAL [place] in[place] Result [facility] [address] [place] [address] * (ABNORMAL) TSH W/REFLEX TO FT4 (05/14/2024 8:15 AM EDT) TSH W/REFLEX TO FT4 5.54(H) 0.40 - 4.50 mIU/L [facility] 05/14/2024 8:15 AM EDT 05/14/2024 8:16 AM EDT Narrative [facility] - 05/15/2024 10:35 AM EDT FASTING:YES FASTING: YES Resulting Agency Comment Performing Organization Information Site ID: QPT Name: [facility] Address: [address] [place] [address], [address] [place] [address] Director: Cole Abernathy MD Lorenza DIOR LAB BLOOD ORDERABLES Final Res ult [facility] * (ABNORMAL) CBC and differential (05/14/2024 8:15 AM EDT) WHITE BLOOD CELL COUNT 11.5(H) 3.8 - 10.8 Thousand/u L [facility] RED BLOOD CELL COUNT 4.57 3.80 - 5.10 Million/uL [facility] HEMOGLOBIN 14.5 11.7 - 15.5 g/dL [facility] HEMATOCRIT 44.1 35.0 - 45.0 % [facility] MCV 96.5 80.0 - 100.0 fL [facility] MCH 31.7 27.0 - 33.0 pg [facility] MCHC 32.9 32.0 - 36.0 g/dL [facility] Comment: For adults, a slight decrease in the calculated MCHC value (in the range of 30 to 32 g/dL) is most likely not clinically significant; however, it should be interpreted with caution in correlation with other red cell parameters and the patient's clinical condition. RDW 13.0 11.0 - 15.0 % [facility] PLATELET COUNT 374 140 - 400 Thousand/u L [facility] MPV 10.9 7.5 - 12.5 fL [facility] ABSOLUTE NEUTROPHILS 5,509 1,500 - 7,800 cells/uL [facility] ABSOLUTE LYMPHOCYTES 4,876(H) 850 - 3,900 cells/uL [facility] ABSOLUTE MONOCYTES 932 200 - 950 cells/uL [facility] ABSOLUTE EOSINOPHILS 92 15 - 500 cells/uL [facility] ABSOLUTE BASOPHILS 92 0 - 200 cells/uL [facility] NEUTROPHILS 47.9 % [facility] LYMPHOCYTES 42.4 % [facility] MONOCYTES 8.1 % [facility] EOSINOPHILS 0.8 % [facility] BASOPHILS 0.8 % [facility] Blood Venous blood specimen / Unknown 05/14/2024 8:15 AM EDT 05/14/2024 8:16 AM EDT Narrative [facility] - 05/15/2024 10:35 AM EDT FASTING:YES FASTING: YES Resulting Agency Comment Performing Organization Information Site ID: QPT Name: [facility] Address: [address] [place] [address], [address] [place] [phone] Director: Cole Abernathy MD Lorenza DIOR LAB BLOOD ORDERABLES Final Res ult Performing Organization Address [facility] de Phone Number [facility] * T4, free (05/14/2024 8:15 AM EDT) T4, FREE 1.3 0.8 - 1.8 ng/dL [facility] 05/14/2024 8:15 AM EDT 05/14/2024 8:16 AM EDT Narrative [facility] - 05/15/2024 10:35 AM EDT FASTING:YES FASTING: YES Resulting Agency Comment Performing Organization Information Site ID: QPT Name: [facility] Address: [address] [place] [address], [address] [place] [phone] Director: Cole Abernathy MD Lorenza DIOR LAB BLOOD ORDERABLES Final Res ult Performing Organization Address [facility] de Phone Number [facility] * (ABNORMAL) Hemoglobin A1c (05/14/2024 8:15 AM EDT) Hemoglobin A1C 6.1(H) <5.7 % of total Hgb [facility] Comment: For someone without known diabetes, a hemoglobin A1c value between 5.7% and 6.4% is consistent with prediabetes and should be confirmed with a follow-up test. For someone with known diabetes, a value <7% indicates that their diabetes is well controlled. A1c targets should be individualized based on duration of diabetes, age, comorbid conditions, and other considerations. This assay result is consistent with an increased risk of diabetes. Currently, no consensus exists regarding use of hemoglobin A1c for diagnosis of diabetes for children. Blood Venous blood specimen / Unknown 05/14/2024 8:15 AM EDT 05/14/2024 8:16 AM EDT Narrative [facility] - 05/15/2024 10:35 AM EDT FASTING:YES FASTING: YES Resulting Agency Comment Performing Organization Information Site ID: QPT Name: [facility] Address: [address] [place] [address], [address] [place] [address] Director: Cole Abernathy MD Lorenza DIOR LAB BLOOD ORDERABLES Final Res ult [facility] * (ABNORMAL) Lipid panel (05/14/2024 8:15 AM EDT) CHOLESTEROL, TOTAL 229(H) <200 mg/dL [facility] HDL CHOLESTEROL 89 > OR = 50 mg/dL [facility] TRIGLYCERIDES 102 <150 mg/dL [facility] LDL-CHOLESTEROL 120(H) mg/dL (calc) [facility] Comment: Reference range: <100 Desirable range <100 mg/dL for primary prevention; <70 mg/dL for patients with CHD or diabetic patients with > or = 2 CHD risk factors. LDL-C is now calculated using the Brendon-Rosanne calculation, which is a validated novel method providing better accuracy than the Friedewald equation in the estimation of LDL-C. Brendon SS et al. CLAIRE. 2013;310(19): 9962-0047 (http://education.[employer].Yellloh/faq/XZG988) CHOL/HDLC RATIO 2.6 <5.0 (calc) [facility] NON HDL CHOLESTEROL 140(H) <130 mg/dL (calc) [facility] Comment: For patients with diabetes plus 1 major ASCVD risk factor, treating to a non-HDL-C goal of <100 mg/dL (LDL-C of <70 mg/dL) is considered a therapeutic option. Blood Venous blood specimen / Unknown 05/14/2024 8:15 AM EDT 05/14/2024 8:16 AM EDT Narrative [facility] - 05/15/2024 10:35 AM EDT FASTING:YES FASTING: YES Resulting Agency Comment Performing Organization Information Site ID: QPT Name: [facility] [facility] Address: [address] [place] [address], [address] [place] [address] Director: Cole Abernathy MD us Lorenza DIOR LAB BLOOD ORDERABLES Final Res ult Performing Organization Address City/[facility]/ZIP Co de Phone Number [facility] * Comprehensive metabolic panel (05/14/2024 8:15 AM EDT) Glucose 90 65 - 99 mg/dL [facility] Comment: Fasting reference interval BUN 25 7 - 25 mg/dL [facility] Creatinine 0.68 0.60 - 1.00 mg/dL [facility] EGFR 94 > OR = 60 mL/min/1. 73m2 [facility] BUN/CREATININE RATIO SEE NOTE: 6 - (calc) [facility] Comment: Not Reported: BUN and Creatinine are within reference range. Sodium 138 135 - 146 mmol/L [facility] Potassium, Bld 4.8 3.5 - 5.3 mmol/L [facility] Chloride 100 98 - 110 mmol/L [facility] Carbon Dioxide 29 20 - 32 mmol/L [facility] Calcium 9.3 8.6 - 10.4 mg/dL [facility] PROTEIN, TOTAL 6.6 6.1 - 8.1 g/dL [facility] ALBUMIN 4.6 3.6 - 5.1 g/dL [facility] GLOBULIN 2.0 1.9 - 3.7 g/dL (calc) [facility] ALBUMIN/GLOBULIN RATIO 2.3 1.0 - 2.5 (calc) [facility] BILIRUBIN, TOTAL 0.5 0.2 - 1.2 mg/dL [facility] ALKALINE PHOSPHATASE 58 37 - 153 U/L [facility] AST 21 10 - 35 U/L [facility] ALT 20 6 - 29 U/L [facility] Blood Venous blood specimen / Unknown 05/14/2024 8:15 AM EDT 05/14/2024 8:16 AM EDT Narrative [facility] - 05/15/2024 10:35 AM EDT FASTING:YES FASTING: YES Resulting Agency Comment Performing Organization Information Site ID: QPT Name: [facility] Entertainment [facility] [address] Address: [address] [place] [address], [address] [place] [id number] Director: Cole Abernathy MD Lorenza DIOR LAB BLOOD ORDERABLES Final Res ult Performing Organization Address City/[facility]/ZIP Co de Phone Number QUEST * MM TOMOSYNTHESIS SCREENING BI (07/03/2023 2:47 PM EDT) Anatomical Region Laterality Modality Other 07/03/2023 2:47 PM EDT Narrative 07/03/2023 2:47 [place] [address] Mammography Report Signed Patient: FATOU TEAGUE MR#: [id number] : 1955 Acct:[id number] Age/Sex: 67 / F ADM Date: 07/03/23 Loc: MAMMO Attending Dr: REA MONTEJO Ordering Physician: REA MONTEJO Results: Date of Service: 07/03/23 Follow Up: Procedure(s): MM tomosynthesis screening BI Accession Number(s): [id number] cc: REA MONTEJO ; CECILIO PATEL Patient Name: FATOU TEAGUE MR#: [id number] : 1955 Exam Date: 07/03/2023 Ordering Doctor: DR. REA MONTEJO M.D. RADIOLOGY REPORT PROCEDURE: MM TOMOSYNTHESIS SCREENING BI COMPARISON: MG MAMM SCREEN 3D LEONOR CAD, 06/09/2022. MG MAMM SCREEN 3D LEONOR CAD, 08/18/2020. MG MAMM LEONOR DIAG W CAD, 08/19/2019. MG MAMM LEONOR SCRN W CAD DIG, 05/28/2013. INDICATIONS: Screening Calculator Name NCI Breast Cancer Risk Assessment Tool 5 Year Breast Cancer Risk n/a% Lifetime Breast Cancer Risk n/a% Personal Breast Cancer Yes, 5-16 Personal Ovarian Cancer No Treatments lumpectomy, radiation Family Cancers Aunt-maternal with breast cancer at age 60; Nephew with pancreatic cancer at age 39; Father with prostate cancer at age 70; Grandfather-paternal with prostate cancer at age 70. LOCATION: The [facility] [place] BREAST COMPOSITION: There are scattered areas of fibroglandular density. FINDINGS: DIAGNOSTIC CATEGORY 2--BENIGN FINDING: RIGHT BREAST: No significant suspicious finding. No significant change has occurred. LEFT BREAST: No significant suspicious finding. Stable surgical clips within upper-outer quadrant and scarring within anterior breast. No significant change has occurred. RECOMMENDATIONS: ROUTINE MAMMOGRAM AND CLINICAL EVALUATION IN 12 MONTHS. PLEASE NOTE: A NORMAL MAMMOGRAM DOES NOT EXCLUDE THE POSSIBILITY OF BREAST CANCER. A CLINICALLY SUSPICIOUS PALPABLE LUMP SHOULD BE BIOPSIED. Dictated by: Matthew Coyle M.D. on 07/03/2023 at 14:44 Approved by: Matthew Coyle M.D. on 07/03/2023 at 14:46 Dictated By: Matthew Coyle M.D. Signed By: 07/03/23 1447 DD/ 1447 TD/TT: Court Stenographer: Procedure Note Radiology, Radiologist, MD - 07/03/2023 [place] [address] Mammography Report Signed Patient: FATOU TEAGUE MMR#: [id number] : 1955cct:[id number] Age/Sex: 67 / FADM Date: 07/03/23 Loc: MAMMO Attending Dr: REA MONETJO Ordering Physician: REA MONTEJOResults: Date of Service: 07/03/23Follow Up: Procedure(s): MM tomosynthesis screening BI Accession Number(s): [id number] cc: REA MONTEJO ; CECILIO PATEL Patient Name: FATOU TEAGUE MR#: [id number] : 1955 Exam Date: 07/03/2023 Ordering Doctor: DR. REA MONTEJO M.D. RADIOLOGY REPORT PROCEDURE: MM TOMOSYNTHESIS SCREENING BI COMPARISON: MG MAMM SCREEN 3D LEONOR CAD, 06/09/2022. MG MAMM SCREEN 3DBIL CAD, 08/18/2020. MG MAMM LEONOR DIAG W CAD, 08/19/2019. MG MAMM LEONOR SCRN WCAD DIG, 05/28/2013. INDICATIONS: Screening Calculator Name NCI Breast Cancer Risk Assessment Tool 5 Year Breast Cancer Risk n/a% Lifetime Breast Cancer Risk n/a% Personal Breast Cancer Yes, 5-16 Personal Ovarian Cancer No Treatments lumpectomy, radiation Family Cancers Aunt-maternal with breast cancer at age 60; Nephewwith pancreatic cancer at age 39; Father with prostate cancer at age 70; Grandfather-paternal with prostate cancer at age 70. LOCATION: The [facility] [place] BREAST COMPOSITION: There are scattered areas of fibroglandulardensity. FINDINGS: DIAGNOSTIC CATEGORY 2--BENIGN FINDING: RIGHT BREAST: No significant suspicious finding. No significant changehas occurred. LEFT BREAST: No significant suspicious finding. Stable surgical clipswithin upper-outer quadrant and scarring within anterior breast. No significant change has occurred. RECOMMENDATIONS: ROUTINE MAMMOGRAM AND CLINICAL EVALUATION IN 12 MONTHS. PLEASE NOTE: A NORMAL MAMMOGRAM DOES NOT EXCLUDE THE POSSIBILITY OFBREAST CANCER. A CLINICALLY SUSPICIOUS PALPABLE LUMP SHOULD BE BIOPSIED. Dictated by: Matthew Coyle M.D. on 07/03/2023 at 14:44 Approved by: Matthew Coyle M.D. on 07/03/2023 at 14:46 Dictated By: Matthew Coyle M.D. Signed By:07/03/231446 DD/ 46 TD/TT: Court Stenographer: us Generic External Data Provider [facility] Final Result * COLONOSCOPY DIAGNOSTIC (05/15/2022 3:45 PM EDT) Anatomical Region Laterality Modality Radiographic Kirsten ging Santy Naranjo MD IMG XR PROCEDURES Final Result from Last 3 Months or Most Recently Relevant to Health Maintenance Insurance [employer] Care Teams Cold Type Composing Machine Operator Relationship Specialty Start Date End Date Cecilio Patel MD 112 [facility] 110 [place] [address] PCP - General Internal Medicine 08/09/22 Cecilio Patel MD [address] [place] [address] [facility] 02/05/21
--- OUTSIDE RECORDS SUMMARY | 2024-07-14 09:08 | XMS_ITS | Encounter Summary ---
Author Organization [facility] Address [address] [facility] [place] [address] Care Team Providers Care Tin Flipper Name Role Phone Cecilio Patel MD Primary Care Provider [phone] Cecilio Patel MD Unavailable [phone] Encounter Details Date Type Department Care Team (Late st Contact Info) Description 06/11/2024 Abstract [facility] 112 [facility] 110 [place] [address] Cecliio Patel MD 112 [facility] 110 [place] [address] Social History Tobacco Use Types Packs/Day Years [...] documented as of this encounter Care Teams Tin Flipper Relationship Specialty Start Date End Date Cecilio Patel MD 112 [facility] 110 [place] [address] PCP - General Internal Medicine 08/09/22 Cecilio Patel MD [address] [facility] 110 [place] [address] PCP - [employer] 02/05/21 documented as of this encounter
--- OUTSIDE RECORDS SUMMARY | 2024-07-14 09:08 | XMS_ITS | Encounter Summary ---
Author Organization [facility] Address [address] [facility] [place] [address] Care Team Providers Care Cash Person Name Role Phone Cecilio Patel MD Primary Care Provider [phone] Cecilio Patel MD Unavailable [phone] Encounter Details Date Type Department Care Team (Late st Contact Info) Description 03/11/2024 Abstract [facility] 112 [facility] 110 [place] [address] Cecilio Patel MD 112 [facility] 110 [place] [address] Social History Tobacco Use Types Packs/Day Years [...] documented as of this encounter Care Teams Cash Person Relationship Specialty Start Date End Date Cecilio Patel MD 112 [facility] 110 [place] [address] PCP - General Internal Medicine 08/09/22 Cecilio Patel MD 112 [facility] 110 [place] [address] PCP - [employer] 02/05/21 documented as of this encounter
--- OUTSIDE RECORDS SUMMARY | 2024-07-14 09:08 | XMS_ITS | Clinical Summary ---
Author Organization [facility] Address [id number] [address] [place] [address] Care Team Providers Care Claims Analyst Name Role Phone Cecilio Patel MD Primary Care Provider [phone] Allergies No known active allergies Medications ALPRAZolam (XANAX) 0.5 mg tablet TK 1 T PO QD 5 7 Active pravastatin (PRAVACHOL) 40 mg tablet TK 1 T PO QD 2 7 Active aspirin 81 mg Take 81 mg by mouth daily. Active ascorbic acid, vitamin C, (vitamin C) 1000 mg tablet Take 1,000 mg by mouth daily. Active loratadine (CLARITIN) 10 mg tablet Take 10 mg by mouth daily. Active therapeutic multivitamin (THERAGRAN) tablet Take 1 tablet by mouth daily. Active ibuprofen (ADVIL,MOTRIN) 200 mg tablet Take 200 mg by mouth every 6 (six) hours as needed for pain. Active CALCIUM CARB/VITAMIN D3/VIT K1 (VIACTIV ORAL) Take 1 each by mouth 2 (two) times a day. Active melatonin 10 mg capsule Take 10 mg by mouth nightly. Active diclofenac (CATAFLAM) 50 mg tablet Take 50 mg by mouth 3 (three) times a day. Active polycarbophil (FIBERCON) 625 mg tablet Take 625 mg by mouth daily. Active oxyCODONE-acetami nophen (PERCOCET) 5-325 mg per tablet Take 1 tablet by mouth every 4 (four) hours as needed for pain. Active naproxen sodium (ALEVE) 220 mg capsule Take 220 mg by mouth 2 (two) times a day with meals. Active amoxicillin-pot clavulanate (AUGMENTIN) 875-125 mg per tablet Take 1 tablet by mouth 2 (two) times a day. Active gabapentin (NEURONTIN) 300 mg capsule Take 400 mg by mouth 3 (three) times a day. Active cyclobenzaprine (FLEXERIL) 10 mg tablet Take 10 mg by mouth daily as needed for muscle spasms. Active PARoxetine (PAXIL) 30 mg tablet Take 30 mg by mouth nightly. Active benzonatate (TESSALON) 200 mg capsule Take 200 mg by mouth 3 (three) times a day as needed for cough. Active diclofenac sodium (VOLTAREN) 1 % gel Apply 2 g topically 4 (four) times a day. Active varenicline (CHANTIX) 1 mg tablet Take 1 mg by mouth 2 (two) times a day. Take with full glass of water. Active anastrozole (ARIMIDEX) 1 mg chemo tablet TAKE 1 TABLET EVERY DAY 90 tablet 3 0 Active Active Problems Problem Noted Date Diagnosed Date Disorder of sacrum 08/20/2017 Overview (08/20/2017): Added automatically from request for surgery [id number] correction current use of aromatase inhibitor 06/2017 Lung nodule < 6cm on CT 03/01/2017 Intercostal pain 11/02/2016 Osteopenia 07/13/2016 Skin abnormalities 07/13/2016 Bilateral leg pain 07/10/2016 Asymptomatic varicose veins of bilateral lower e xtremities 07/10/2016 Bipolar disorder 07/10/2016 Malignant neoplasm of female breast 08/02/2015 Family History Medical History Relation Name Comments Kidney disease Brother Cancer Father BLADDER Dementia Mother Diabetes Mother Cancer Paternal Grandfather Kidney disease Sister Breast cancer Neg Hx Relation Name Status Comments Brother Father Mother Paternal Grandfather Sister Social History Tobacco Use Types Packs/Day Years Used Date Smoking Tobacco: Former Smokeless Tobacco: Never Alcohol Use Standard Drinks/Week Comments Yes 4 (1 standard drink = 0.6 oz pur e alcohol) Childcare Answer Date Recorded Childcare Unknown 07/05/2018 Employment Answer Date Recorded Employment Unknown 07/05/2018 Purpose - Life Answer Date Recorded Purpose and direction in life Unknown Comments No Sex and Gender Information Value Date Recorded Sex Assigned at Not on file Legal Sex Female 11:41 AM EDT Gender Identity Not on file Sexual Orientation Not on file Last Filed Vital Signs Vital Sign Reading Time Taken Comments Blood Pressure 134/81 08/21/2019 10:12 AM EDT Pulse 73 08/21/2019 10:12 AM EDT Temperature 36.8 C (98.2 F) 08/21/2019 10:12 AM EDT Respiratory Rate 16 08/21/2019 10:12 AM EDT Oxygen Saturation 100% 08/21/2019 10:12 AM EDT Inhaled Oxygen Concentration - - Weight 77.6 kg (171 lb) 08/21/2019 10:12 AM EDT Height 160 cm (5' 2.99 ) 08/21/2019 10:12 AM EDT Body Mass Index 30.3 08/21/2019 10:12 AM EDT Plan of Treatment Health Maintenance Due Date Last Done Comments Depression Screening 1965 Tobacco Screening 1965 Adult BMI Screening 07/15/1971 DTaP,Tdap and Td Vaccines (1 - Tdap) 1972 Zoster (Shingles) Vaccine (1 of 2) 09/30/2013 08/05/2013, 07/09/2013 Fall Risk Screening 2018 Influenza Vaccine 10/06/2024 09/27/2018, , 10/24/2017, Additional history exists Medical Devices Not on file Insurance [employer] Care Teams Claims Analyst Relationship Specialty Start Date End Date Cecilio Patel MD 112 [facility], [facility] 110 [place] [address] PCP - General Internal Medicine 05/25/16
--- OUTSIDE RECORDS SUMMARY | 2024-07-14 09:08 | XMS_ITS | Encounter Summary ---
Author Organization [facility] Address [address] [facility] [place] [address] Care Team Providers Care Field Operations Supervisor Name Role Phone Cecilio Patel MD Primary Care Provider [phone] Cecilio Patel MD Unavailable [phone] Encounter Details Date Type Department Care Team (Late st Contact Info) Description 05/14/2023 Clinisync Result Encounter [facility] External Department Unsolicited Neeraj Parrish, PA 112 [facility] 110 [place] [address] Social History Tobacco Use Types Packs/Day Years [...] Procedure Name Priority Date/Time Associated Diagnosis Comments US RIGHT UPPER QUADRANT 05/14/2023 10:14 AM EDT documented in this encounter Results * US RIGHT UPPER QUADRANT (05/14/2023 10:14 AM EDT) Anatomical Region Laterality Modality Other 05/14/2023 10:1 4 AM EDT Narrative 05/14/2023 10:16 [place] [address] Ultrasound Report Signed Patient: FATOU TEAGUE MR#: [id number] : 1955 Acct:[id number] Age/Sex: 67 / F ADM Date: 05/14/23 Loc: US Attending Dr: NEERAJ PARRISH Ordering Physician: NEERAJ PARRISH Date of Service: 05/14/23 Procedure(s): US right upper quadrant Accession Number(s): [id number] cc: CECILIO PATEL ; NEERAJ PARRISH [place] [address] Patient Name: FATOU TEAGUE MRN: [id number] date: 1955 Sex: F Assigned Patient Location: US Current Patient Location: US Accession/Order Number: [id number] Exam Date: 05/14/2023 09:00 Report Date: 05/14/2023 10:14 At the request of: NEERAJ PARRISH Procedure: US right upper quadrant EXAMINATION: US right upper quadrant HISTORY: history of pancreatic cancer Z80.0 ; chronic right upper quadrant pain COMPARISON: No relevant comparison available. TECHNIQUE: Transabdominal evaluation of the right upper quadrant. FINDINGS: LIVER: Normal size and echotexture. Color Doppler demonstrates patent hepatic veins. PORTAL VEIN: Duplex Doppler demonstrates normal hepatopetal flow pattern with flow velocity averaging 30 cm/s. GALLBLADDER: No visible gallstones, wall thickening, or pericholecystic free fluid. Negative sonographic Barnett's sign. BILIARY: No abnormal dilation or stones. Common bile duct diameter is within normal limits. PANCREASE: No visible mass, abnormal atrophy, or duct dilation. KIDNEY: No hydronephrosis. No visible mass or stones. Size: 9.0 x 4.1 x 4.0 cm US/US right upper quadrant IMPRESSION: 1. Normal right upper quadrant ultrasound. No suspicious findings. Electronically authenticated by: MATTHEW COYLE Date: 05/14/2023 10:14 Dictated By: Matthew Coyle M.D. Signed By: 05/14/23 1016 DD/ 1014 TD/TT: Manager Book: Procedure Note Radiology, Radiologist, MD - 05/14/2023 [place] [address] Ultrasound Report Signed Patient: FATOU TEAGUE MMR#: [id number] : 1955cct:[id number] Age/Sex: 67 / FADM Date: 05/14/23 Loc: Attending Dr: NEERAJ PARRISH Ordering Physician: NEERAJ PARRISH Date of Service: 05/14/23 Procedure(s): US right upper quadrant Accession Number(s): [id number] cc: CECILIO PATEL ; NEERAJ PARRISH [place] [address] Patient Name: FATOU TEAGUE MRN: [id number] date: 1955 Sex: F Assigned Patient Location: US Current Patient Location: Accession/Order Number: [id number] Exam Date: 05/14/2023 09:00 Report Date: 05/14/2023 10:14 At the request of: NEERAJ PARRISH Procedure: US right upper quadrant EXAMINATION: US right upper quadrant HISTORY: history of pancreatic cancer Z80.0 ; chronic right upper quadrant pain COMPARISON: No relevant comparison available. TECHNIQUE: Transabdominal evaluation of the right upper quadrant. FINDINGS: LIVER: Normal size and echotexture. Color Doppler demonstrates patenthepatic veins. PORTAL VEIN: Duplex Doppler demonstrates normal hepatopetal flow patternwith flow velocity averaging 30 cm/s. GALLBLADDER: No visible gallstones, wall thickening, or pericholecysticfree fluid. Negative sonographic Barnett's sign. BILIARY: No abnormal dilation or stones. Common bile duct diameter iswithin normal limits. PANCREASE: No visible mass, abnormal atrophy, or duct dilation. KIDNEY: No hydronephrosis. No visible mass or stones. Size: 9.0 x 4.1 x4.0 cm US/US right upper quadrant IMPRESSION: 1. Normal right upper quadrant ultrasound. No suspicious findings. Electronically authenticated by: MATTHEW COYLE Date: 05/14/2023 10:14 Dictated By: Matthew Coyle M.D. Signed By:05/14/23 1016 DD/ 1014 TD/TT: Manager Book: us Neeraj DIOR [facility] Final Result documented in this encounter Visit Diagnoses Not on filedocumented in this encounter Additional Health Concerns Assessment Noted Time PHQ-9 Depression Total Score: 13 024 10:00 AM EDT documented as of this encounter Care Teams Field Operations Supervisor Relationship Specialty Start Date End Date Cecilio Patel MD [address] [facility] [address] [place] [address] PCP - General Internal Medicine 08/09/22 Cecilio Patel MD [address] [facility] [address] [place] [address] PCP - [employer] 02/05/21 documented as of this encounter
--- OUTSIDE RECORDS SUMMARY | 2024-07-14 09:08 | XMS_ITS | Encounter Summary ---
Author Organization [facility] Address [address] [facility] [place] [address] Care Team Providers Care Movie Projectionist Name Role Phone Cecilio Patel MD Primary Care Provider [phone] Cecilio Patel MD Unavailable [phone] Encounter Details Date Type Department Care Team (Late st Contact Info) Description 05/08/2023 Abstract [facility] 112 [facility] 110 [place] [address] Cecilio Patel MD 112 [facility] 110 [place] [address] Social History Tobacco Use Types Packs/Day Years [...] documented as of this encounter Care Teams Movie Projectionist Relationship Specialty Start Date End Date Cecilio Patel MD 112 [facility] 110 [place] [address] PCP - General Internal Medicine 08/09/22 Cecilio Patel MD 112 [facility] 110 [place] [address] PCP - [employer] 02/05/21 documented as of this encounter
--- OUTSIDE RECORDS SUMMARY | 2024-07-14 09:08 | XMS_ITS | Encounter Summary ---
Author Organization [facility] Address [facility] [place] [address] Care Team Providers Care Equity Manager Name Role Phone Jorge PENALOZA MD, Cecilio Roberts Primary Care Provider [phone] Christine Carlton Unavailable Unavailable Source Comments In the event this information is protected by the Federal Confidentiality of Alcohol and Drug AbusePatient Records regulations: The Federal rules restrict any use of the information to criminally investigate or prosecute any alcohol or drug abuse patient.[facility] Encounter Details Date Type Department Care Team (Late st Contact Info) Description 02/11/2020 Abstract Hematology/Oncology [address] [place] [address] Joey House MD [address] [facility] [place] [address] Social History Tobacco Use Types Packs/Day Years Used Date Smoking Tobacco: Former Smokeless Tobacco: Never Alcohol Use Standard Drinks/Week Comments Yes 0 (1 standard drink = 0.6 oz pur e alcohol) rarely Area Deprivation Index Answer Date Albino rded National Score (1-100), lower number is lower ri sk Not on file 02/12/2020 State Score (1-10), lower number is lower risk N ot on file 02/12/2020 Data from: https://www.neighborhoodatlas.medicine.[facility].edu/. Last address used for calculation Not on file 02/12/2020 Comments No Sex and Gender Information Value Date Recorded Sex Assigned at Not on file Legal Sex Female 8:07 AM EST Gender Identity Not on file Sexual Orientation Not on file COVID-19 Exposure Response Date Recorded In the last month, have you been in contact with someone who was confirmed or suspected to have Coronavirus / COVID-19? No / Unsure 02/12/2020 1:44 PM EST documented as of this encounter Plan of Treatment Upcoming Encounters Date Type Department Care Team (Latest Contact Info) Description 07/23/2025 2:00 PM EDT Office Visit [facility] [address] [place] [address] [place] [address] 1 year follow up lab 07/23/2025 2:20 PM EDT Visit (SP) Office Hematology/Oncology [address] [place] [address] [place] [address] Joey House MD [address] [facility] [place] [address] 1 year follow up lab documented as of this encounter Visit Diagnoses Not on filedocumented in this encounter Care Teams Equity Manager Relationship Specialty Start Date End Date Cecilio Patel II, MD [address] [place] [address] [place] [address] PCP - General Internal Medicine 07/22/15 Christine Carlton LSW Equipment Tester 01/06/22 documented as of this encounter
--- OUTSIDE RECORDS SUMMARY | 2024-07-14 09:08 | XMS_ITS | Encounter Summary ---
Author Organization [facility] Address [address] [facility] [place] [address] Care Team Providers Care Real Estate Officer Name Role Phone Cecilio Patel MD Primary Care Provider [phone] Cecilio Patel MD Unavailable [phone] Encounter Details Date Type Department Care Team (Late st Contact Info) Description 07/03/2023 Clinisync Result Encounter [facility] External Department Unsolicited Provider, Generic External Data Social History Tobacco Use Types Packs/Day Years [...] Procedure Name Priority Date/Time Associated Diagnosis Comments MM TOMOSYNTHESIS SCREENING BI 07/03/2023 2:47 PM EDT documented in this encounter Results * MM TOMOSYNTHESIS SCREENING BI (07/03/2023 2:47 PM EDT) Anatomical Region Laterality Modality Other 07/03/2023 2:47 PM EDT Narrative 07/03/2023 2:47 PM EDT The [address] [address] Mammography Report Signed Patient: FATOU TEAGUE MR#: [id number] : 1955 Acct:[id number] Age/Sex: 67 / F ADM Date: 07/03/23 Loc: MAMMO Attending Dr: REA MONTEJO Ordering Physician: REA MONTEJO Results: Date of Service: 07/03/23 Follow Up: Procedure(s): MM tomosynthesis screening BI Accession Number(s): [id number] cc: REA MONTEJO ; CECILIO PATEL Patient Name: FATOU TEAGUE MR#: [id number] : 1955 Exam Date: 07/03/2023 Ordering Doctor: [...] prostate cancer at age 68. LOCATION: The [facility] BREAST COMPOSITION: There are scattered areas of [...] Signed By: 07/03/23 1447 DD/ 1447 TD/TT: Psychologist Chief: Procedure Note Radiology, Radiologist, MD - 07/03/2023 [place] [address] Mammography Report Signed Patient: FATOU TEAGUE MMR#: [id number] : 1955cct:[id number] Age/Sex: 67 / FADM Date: 07/03/23 Loc: MAMMO Attending Dr: REA MONTEJO Ordering Physician: Rigoberto MONTEJOults: Date of Service: 07/03/23Follow Up: Procedure(s): MM tomosynthesis screening BI Accession Number(s): [id number] cc: REA MNOTEJO ; CECILIO PATEL Patient Name: FATOU TEAGUE MR#: [id number] : 1955 Exam Date: 07/03/2023 Ordering Doctor: [...] prostate cancer at age 68. LOCATION: [facility] BREAST COMPOSITION: There are scattered areas of [...] 14:46 Dictated By: Matthew Coyle M.D. Signed By:07/03/23 1447 DD/ 1447 TD/TT: Psychologist Chief: us Generic External Data Provider [facility] Final Result documented in this encounter Visit Diagnoses Not on filedocumented in this encounter Additional Health Concerns Assessment Noted Time PHQ-9 Depression Total Score: 13 024 10:00 AM EDT documented as of this encounter Care Teams Real Estate Officer Relationship Specialty Start Date End Date Cecilio Patel MD 112 [facility] 110 [place] [address] PCP - General Internal Medicine 08/09/22 Cecilio Patel MD [address] [place] [facility] 110 [place] [address] PCP - [employer] 02/05/21 documented as of this encounter
--- OUTSIDE RECORDS SUMMARY | 2024-07-14 09:08 | XMS_ITS | Encounter Summary ---
Author Organization [facility] Address [address] [place] [address] Care Team Providers Care Senior Benefits Specialist Name Role Phone Cecilio Patel MD Primary Care Provider [phone] Cecilio Patel MD Unavailable [phone] Encounter Details Date Type Department Care Team (Late st Contact Info) Description 10/17/2023 Telephone [facility] [address] [facility] [address] [place] [address] Jackie Diego, JESSIKA Social History Tobacco Use Types Packs/Day Years [...] documented as of this encounter Care Teams Senior Benefits Specialist Relationship Specialty Start Date End Date Cecilio Patel MD [address] [facility] [address] [place] [address] PCP - General Internal Medicine 08/09/22 Cecilio Patel MD [address] [facility] [address] [place] [address] PCP - [employer] 02/05/21 documented as of this encounter
--- OUTSIDE RECORDS SUMMARY | 2024-07-14 09:08 | XMS_ITS | Encounter Summary ---
Author Organization [facility] Address [address] [facility] [place] [address] Care Team Providers Care Diffuser Operator Name Role Phone Cecilio Patel MD Primary Care Provider [phone] Cecilio Patel MD Unavailable [phone] Encounter Details Date Type Department Care [...] Procedure Name Priority Date/Time Associated Diagnosis Comments XR DEXA AXIAL SKELETON 07/03/2023 1:21 PM EDT documented in this encounter Results * XR DEXA AXIAL SKELETON (07/03/2023 1:21 PM EDT) Anatomical Region Laterality Modality Other 07/03/2023 1:21 PM EDT Narrative 07/03/2023 1:24 PM EDT [address] [address] XRay Report Signed Patient: FATOU TEAGUE MR#: [id number] : 1955 Acct:[id number] Age/Sex: 67 / F ADM Date: 07/03/23 Loc: MAMMO Attending Dr: REA MONTEJO Ordering Physician: REA MONTEJO Date of Service: 07/03/23 Procedure(s): XR DEXA axial skeleton Accession Number(s): [id number] cc: REA MONTEJO ; CECILIO PATEL [place] [id number] Patient Name: FATOU TEAGUE MRN: [id number] date: 1955 Sex: F Assigned Patient Location: MAMMO Current Patient Location: MAMMO Accession/Order Number: [id number] Exam Date: 07/03/2023 12:45 Report Date: 07/03/2023 13:21 At the request of: REA MONTEJO Procedure: XR DEXA axial skeleton EXAMINATION: XR DEXA axial skeleton HISTORY: Aromatase inhibitor use Z79.811 COMPARISON: DEXA bone densitometry 11/02/2020 TECHNIQUE: Dual-energy X-ray absorptiometry (DXA) was performed. FINDINGS: FOREARM ANALYSIS: Average bone mineral density is 0.556 g/cm2. T-score (standard deviation relative to young adult mean): -2.2 . -2.5% change since prior study. HIP ANALYSIS: Lowest bone mineral density is within the right femoral neck, 0.953 g/cm2. T-score (standard deviation relative to young adult mean): -0.6 . +0.2% change since prior study. XR/XR DEXA axial skeleton IMPRESSION: World [employer] Organization Classification: Osteopenia - Moderate Fracture Risk FRAX: Electronically authenticated by: MATTHEW COYLE Date: 07/03/2023 13:21 Dictated By: Matthew Coyle M.D. Signed By: 07/03/23 1324 DD/ 1321 TD/TT: Tobacco Sieve Operator: Procedure Note Radiology, Radiologist, - 07/03/2023 [place] [id number] XRay Report Signed Patient: FATOU TEAGUE MMR#: [id number] : 1955cct:[id number] Age/Sex: 67 / FADM Date: 07/03/23 Loc: MAMMO Attending Dr: REA MONTEJO Ordering Physician: REA MONTEJO Date of Service: 07/03/23 Procedure(s): XR DEXA axial skeleton Accession Number(s): [id number] cc: REA MONTEJO ; CECILIO PATEL [place] [address] Patient Name: FATOU TEAGUE MRN: [id number] date: 1955 Sex: F Assigned Patient Location: MAMMO Current Patient Location: MAMMO Accession/Order Number: [id number] Exam Date: 07/03/2023 12:45 Report Date: 07/03/2023 13:21 At the request of: REA MONTEJO Procedure: XR DEXA axial skeleton EXAMINATION: XR DEXA axial skeleton HISTORY: Aromatase inhibitor use Z79.811 COMPARISON: DEXA bone densitometry 11/02/2020 TECHNIQUE: Dual-energy X-ray absorptiometry (DXA) was performed. FINDINGS: FOREARM ANALYSIS: Average bone mineral density is 0.556 g/cm2. T-score (standard deviation relative to young adult mean): -2.2 . -2.5% change since prior study. HIP ANALYSIS: Lowest bone mineral density is within the right femoral neck, 0.953 g/cm2. T-score (standard deviation relative to young adult mean): -0.6 . +0.2% change since prior study. XR/XR DEXA axial skeleton IMPRESSION: World Shahid Organization Classification: Osteopenia - Moderate FractureRisk FRAX: Electronically authenticated by: MATTHEW COYLE Date: 07/03/2023 13:21 Dictated By: Matthew Coyle M.D. Signed By:07/03/23 1324 DD/ 1321 TD/TT: Tobacco Sieve Operator: us Generic External Data Provider [facility] Final Result documented in this encounter Visit Diagnoses Not on filedocumented in this encounter Additional Health Concerns Assessment Noted Time PHQ-9 Depression Total Score: 13 05/06/ 024 10:00 AM EDT documented as of this encounter Care Teams Diffuser Operator Relationship Specialty Start Date End Date Cecilio Patel MD [address] [facility] 110 [place] [address] PCP - General Internal Medicine 08/09/22 Cecilio Patel MD [address] [facility] 110 [place] [address] PCP - [employer] 02/05/21 documented as of this encounter
--- OUTSIDE RECORDS SUMMARY | 2024-07-14 09:08 | XMS_ITS | Encounter Summary ---
Author Organization [facility] Address [address] [facility] [place] [address] Care Team Providers Care Molder Meat Name Role Phone Cecilio Patel MD Primary Care Provider [phone] Cecilio Patel MD Unavailable [phone] Encounter Details Date Type Department Care Team (Late st Contact Info) Description 05/08/2023 Abstract [facility] [address] [facility] 110 [place] [address] Cecilio Patel MD 112 [facility] 110 [place] [address] Social History Tobacco Use Types Packs/Day Years [...] documented as of this encounter Care Teams Molder Meat Relationship Specialty Start Date End Date Cecilio Patel MD 112 [facility] 110 [place] [address] PCP - General Internal Medicine 08/09/22 Cecilio Patel MD 112 [facility] 110 [place] [address] PCP - [employer] 02/05/21 documented as of this encounter
--- OUTSIDE RECORDS SUMMARY | 2024-07-14 09:08 | XMS_ITS | Encounter Summary ---
Author Organization [facility] Address [address] [facility] [place] [address] Care Team Providers Care Customer Supply Chain Analyst Name Role Phone Cecilio Patel MD Primary Care Provider [phone] Cecilio Patel MD Unavailable [phone] Encounter Details Date Type Department Care Team (Late st Contact Info) Description 12/02/2023 Clinisync Result Encounter [facility] External Department Unsolicited Neeraj Parrish, PA 112 [facility] 110 [place] [address] Social History Tobacco Use Types Packs/Day Years [...] Name Priority Date/Time Associated Diagnosis Comments XR LUMBAR SPINE 6V W BENDING 12/02/2023 12:45 AM EDT documented in this encounter Results * XR LUMBAR SPINE 6V W BENDING (12/02/2023 12:45 AM EDT) Anatomical Region Laterality Modality Other 12/02/2023 12:4 5 AM EDT Narrative 12/02/2023 12:48 [place] [address] XRay Report Signed Patient: FATOU TEAGUE MR#: [id number] : 1955 Acct:[id number] Age/Sex: 68 / F ADM Date: 11/27/23 Loc: [facility] Attending Dr: NEERAJ PARRISH Ordering Physician: NEERAJ PARRISH Date of Service: 11/27/23 Procedure(s): XR lumbar spine 6V w bending Accession Number(s): [id number] cc: NEERAJ PARRISH [place] [address] Patient Name: FATOU TEAGUE MRN: [id number] date: 1955 Sex: F Assigned Patient Location: [facility] Current Patient Location: [facility] Accession/Order Number: [id number] Exam Date: 11/27/2023 11:25 Report Date: 12/02/2023 00:45 At the request of: NEERAJ PARRISH Procedure: XR lumbar spine 6V w bending EXAM: XR lumbar spine 6V w bending HISTORY: Degeneration Of Intervertebral Disc Of Lumbar COMPARISON: None. FINDINGS/IMPRESSION: 1. No acute fracture or dislocation. 2. Moderate disc degeneration at L2-L3. 3. Vertebral body height is preserved. 4. Posterior spinal fusion hardware at L4-5 with bilateral pedicle screws and interconnecting rods. 5. Abandoned screw fragment at the S1 vertebral body. 6. Overlying bowel gas pattern is nonspecific. 7. Mild degeneration of the sacroiliac joints. 8. Above-average stool burden of the colon. Electronically authenticated by: DOE PARIS Date: 12/02/2023 00:45 Dictated By: Doe Paris M.D. Signed By: 12/02/2347 DD/ TD/TT: Laborer [employer]: Procedure Note Radiology, Radiologist, MD - 12/02/2023 [place] [address] XRay Report Signed Patient: FATOU TEAGUE MMR#: [id number] : 1955cct:[id number] Age/Sex: 68 / FADM Date: 11/27/23 Loc: RAD Attending Dr: NEERAJ PARRISH Ordering Physician: NEERAJ PARRISH Date of Service: 11/27/23 Procedure(s): XR lumbar spine 6V w bending Accession Number(s): [id number] cc: NEERAJ PARRISH [place] [address] Patient Name: FATOU TEAGUE MRN: [id number] date: 1955 Sex: F Assigned Patient Location: [facility] Current Patient Location: [facility] Accession/Order Number: [id number] Exam Date: 11/27/2023 11:25 Report Date: 12/02/2023 00:45 At the request of: NEERAJ PARRISH Procedure: XR lumbar spine 6V w bending EXAM: XR lumbar spine 6V w bending HISTORY: Degeneration Of Intervertebral Disc Of Lumbar COMPARISON: None. FINDINGS/IMPRESSION: 1. No acute fracture or dislocation. 2. Moderate disc degeneration at L2-L3. 3. Vertebral body height is preserved. 4. Posterior spinal fusion hardware at L4-5 with bilateral pedicle screwsand interconnecting rods. 5. Abandoned screw fragment at the S1 vertebral body. 6. Overlying bowel gas pattern is nonspecific. 7. Mild degeneration of the sacroiliac joints. 8. Above-average stool burden of the colon. Electronically authenticated by: DOE PARIS Date: 12/02/2023 00:45 Dictated By: Doe Paris M.D. Signed By:12/02/2347 DD/ TD/TT: Laborer [employer]: Neeraj DIOR [facility] Final Result documented in this encounter Visit Diagnoses Not on filedocumented in this encounter Additional Health Concerns Assessment Noted Time PHQ-9 Depression Total Score: 13 024 10:00 AM EDT documented as of this encounter Care Teams Customer Supply Chain Analyst Relationship Specialty Start Date End Date Cecilio Patel MD [address] [facility] 110 [place] [address] PCP - General Internal Medicine 08/09/22 Cecilio Patel MD [address] [facility] 110 [place] [address] PCP - [employer] 02/05/21 documented as of this encounter
--- OUTSIDE RECORDS SUMMARY | 2024-07-14 09:08 | XMS_ITS ---
Author Organization [facility] Address [id number] [address] 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 Past Treatment and Therapy Plans INFUSION TREATMENT Plan Name Start Date Discontinue Date Treatment Medications Discontinue Reason Plan Provider ZOLEDRONIC ACID (RECLAST) ONCE A YEAR 01/16/2019 08/16/2023 No medications scheduled. Other Musa Ruvalcaba MD DENOSUMAB (PROLIA) EVERY 6 MONTHS 08/29/2016 12/11/2017 No medications scheduled. Patient Preference Madyson Aquino MD
--- OUTSIDE RECORDS SUMMARY | 2024-07-14 09:09 | XMS_ITS | Encounter Summary ---
Author Organization [facility] Address [address] [facility] [place] [address] Care Team Providers Care Napper Fixer Name Role Phone Cecilio Patel MD Primary Care Provider [phone] Cecilio Patel MD Unavailable [phone] Encounter Details Date Type Department Care Team (Late st Contact Info) Description 08/23/2022 Abstract [facility] [address] [facility] [address] [place] [address] Cecilio Patel MD [address] [facility] 110 [place] [address] Social History Tobacco Use Types Packs/Day Years Used Date Smoking Tobacco: Every Day Cigarettes Smokeless Tobacco: Never PHQ-2 Answer Date Recorded Patient Health Questionnaire-2 Score 0 08/10/2022 Comments Unknown Sex and Gender Information Value Date Recorded Sex Assigned at Not on file Legal Sex Female 6:46 PM EDT Gender Identity Not on file Sexual Orientation Not on file documented as of this encounter Plan of Treatment Not on file documented as of this encounter Visit Diagnoses Not on filedocumented in this encounter Care Teams Napper Fixer Relationship Specialty Start Date End Date Cecilio Patel MD [address] [facility] [address] [place] [address] PCP - General Internal Medicine 08/09/22 Cecilio Patel MD [address] [facility] [address] [place] [address] PCP - [employer] 02/05/21 documented as of this encounter
--- OUTSIDE RECORDS SUMMARY | 2024-07-14 09:09 | XMS_ITS | Encounter Summary ---
Author Organization [facility] Address [address] [place] [address] Care Team Providers Care Demolition Specialist Name Role Phone Cecilio Patel MD Primary Care Provider [phone] Cecilio Patel MD Unavailable [phone] Encounter Details Date Type Department Care Team (Late st Contact Info) Description 08/10/2022 Orders Only [facility] 112 [facility] 110 [place] [address] Santy Naranjo MD [address] [facility] [address] [place] [address] Social History Tobacco Use Types Packs/Day Years [...] pleasure in doing things Not at all 08/10/2022 6:23 AM EDT Dee Pate MA Feeling down, depressed, or hopeless Not at all 08/10/2022 6:23 AM EDT Dee Pate MA Patient Health Questionnaire -2 Score 0 08/10/2022 6:23 AM EDT Dee Pate MA documented as of this encounter Plan of Treatment Not on file documented as of this encounter Procedures Procedure Name Priority Date/Time Associated Diagnosis Comments COLONOSCOPY DIAGNOSTIC Routine 05/15/2022 3:45 PM EDT documented in this encounter Results * COLONOSCOPY DIAGNOSTIC (05/15/2022 3:45 PM EDT) Anatomical Region Laterality Modality Radiographic Kirsten ging Santy Naranjo MD IMG XR PROCEDURES Final Result documented in this encounter Visit Diagnoses Not on filedocumented in this encounter Care Teams Demolition Specialist Relationship Specialty Start Date End Date Cecilio Patel MD [address] [facility] 110 [place] [address] PCP - General Internal Medicine 08/09/22 Cecilio Patel MD [address] [facility] [address] [place] [address] PCP - [employer] 02/05/21 documented as of this encounter
--- OUTSIDE RECORDS SUMMARY | 2024-07-14 09:09 | XMS_ITS | Encounter Summary ---
Author Organization [facility] Address [address] [facility] [place] [address] Care Team Providers Care Roller Engraver Name Role Phone Cecilio Patel MD Primary Care Provider [phone] Cecilio Patel MD Unavailable [phone] Encounter Details Date Type Department Care Team (Late st Contact Info) Description 10/05/2022 Orders Only [facility] [address] [place] [address] [place] [address] A, Unknown Practice [address] [place], [place] [address] Social History Tobacco Use Types Packs/Day Years Used Date Smoking Tobacco: Every Day Cigarettes Smokeless Tobacco: Never Alcohol Use Standard Drinks/Week [...] Procedure Name Priority Date/Time Associated Diagnosis Comments X-RAY Routine 08/11/2022 4:18 PM EDT XR SHOULDER 2+ VIEWS LEFT Routine 08/11/2022 4:18 PM EDT documented in this encounter Results * X-RAY (08/11/2022 4:18 PM EDT) Anatomical Region Laterality Modality Radiographic Kirsten ging us Unknown Practice A IMG XR PROCEDURES Final Resul t * XR shoulder 2+ views left (08/11/2022 4:18 PM EDT) Anatomical Region Laterality Modality Upper Extremities, Shoulder Left Radi ographic Imaging us Unknown Practice A IMG XR PROCEDURES Final Resul t documented in this encounter Visit Diagnoses Not on filedocumented in this encounter Care Teams Roller Engraver Relationship Specialty Start Date End Date Cecilio Patel MD [address] [facility] 110 [place] [address] PCP - General Internal Medicine 08/09/22 Cecilio Patel MD [address] [facility] [address] [place] [address] PCP - [employer] 02/05/21 documented as of this encounter
--- OUTSIDE RECORDS SUMMARY | 2024-07-14 09:09 | XMS_ITS ---
Author Organization [facility] Address [facility] [place] [address] Care Team Providers Care Parts Sales Representative Name Role Phone Jorge PENALOZA MD, Cecilio Roberts Primary Care Provider [phone] Christine Carlton Unavailable Unavailable Active Problems Problem Noted Date Diagnosed Date Aromatase inhibitor use 02/12/2020 Malignant neoplasm of areola of left breast in female, estrogen receptor positive 08/02/2015 Current Treatment and Therapy Plans No current plan information found. Past Treatment and Therapy Plans NON-CHEMO 1 Plan Name Start Date Discontinue Date Treatment Medications Discontinue Reason Plan Provider Cycles BONE MODIFYING AGENT: $ - Q6 MONTHS IF CRCL IS GREATER THAN 30 ML/MIN 03/18/2020 08/17/2023 zoledronic sb-fpxagops-5. 9NaCl (ZOMETA)zoledr onic acid (ZOMETA) Other Joey House MD 5 of 6 cycles started
--- OUTSIDE RECORDS SUMMARY | 2024-07-14 09:09 | XMS_ITS | Clinical Summary ---
Author Organization [facility] Address [facility] [place] [address] Care Team Providers Care Delivery Supervisor Name Role Phone Jorge PENALOZA MD, Cecilio Roberts Primary Care Provider [phone] Christine Carlton Unavailable Unavailable Allergies No known active allergies Medications ibuprofen (MOTRIN) 200 mg tablet Take 200 mg by mouth every 6 hours as needed. Active omeprazole (PRILOSEC) 20 mg capsule Take 20 mg by mouth as needed. Active aspirin, enteric coated (ASPIRIN, ENTERIC COATED) 81 mg EC tablet Take 81 mg by mouth once daily. Active pravastatin (PRAVACHOL) 40 mg tablet Take 40 mg by mouth once daily. Active ALPRAZolam (XANAX) 0.5 mg tablet Take 0.5 mg by mouth at bedtime as needed. Active oxyCODONE-acet aminophen (PERCOCET) 7.5-325 mg tablet Take 1 tablet by mouth every 4 hours as needed. Active Docusate Sodium 100 mg tab Take 1 tablet by mouth as needed. Active Calcium-Vitami n D3-Vitamin K 500-500-40 mg-unit-mcg chew Take 2 tablets by mouth once daily. Active Ascorbic Acid 1,000 mg tablet Take 1,000 mg by mouth once daily. Active MULTI-VITAMIN ORAL Take 1 tablet by mouth once daily. Active mirtazapine (REMERON) 15 mg tablet Take 15 mg by mouth daily at bedtime. 6 Active diclofenac potassium (CATAFLAM) 50 mg tablet Take 50 mg by mouth. Active MAGNESIUM ORAL Take 800 mg by mouth. Active fluticasone (FLONASE) 50 mcg/actuation nasal spray 1 Active oxybutynin XL (DITROPAN XL) 5 mg 24 hr tablet 1 Active loratadine (CLARITIN) 10 mg tablet Loratadine Active 1 TAB Oral Daily November 11, 2018 10:56am 9 Active gabapentin (NEURONTIN) 300 mg capsule 300 mg. 7 Active levothyroxine (SYNTHROID) 25 mcg tablet Take 25 mcg by mouth every morning. Take On an Empty Stomach 1 Active anastrozole (ARIMIDEX) 1 mg tablet Take 1 tablet by mouth once daily. 90 tablet 1 2 Active PARoxetine (PAXIL) 10 mg tablet Take 10 mg by mouth once daily. 2 Active polyethylene glycol 3350 (PURELAX ORAL) Take by mouth. Active zoledronic acid (ZOMETA INTRAVENOUS) Inject intravenously every 6 hours as needed. Active CALCIUM ORAL Take by mouth. Ac tive cyclobenzaprin e (FLEXERIL) 10 mg tablet Take 10 mg by mouth as needed. Active ALIGN PROBIOTIC RESISTANCE CAPSULE Take by mouth once daily. Active cyanocobalamin (VITAMIN B-12) 1,000 mcg tab Take 1,000 mcg by mouth once daily. Active MELATONIN ORAL Take by mouth as needed. Active Active Problems Problem Noted Date Diagnosed Date Aromatase inhibitor use 02/12/2020 Malignant neoplasm of areola of left breast in female, estrogen receptor positive 08/02/2015 Encounters Date Type Department Care Team Description 06/19/2024 2:20 PM EDT Visit (SP) Office Hematology/Oncology [address] [place] [address] [place] [address] Joey House MD Breast screening (Primary Dx); Hx of breast cancer 06/19/2024 Travel 06/12/2024 Telephone Hematology/Oncology [address] [place] [address] [place] [address] Joey House MD Lab Orders from Last 3 Months Immunizations Immunization Administration Dates Next Due influenza (HD-IIV3) vaccine, age 65+ yr, high dose, trivalent, PF (FLUZONE HIGH-DOSE) 11/01/2019,09/27/2018 influenza (HD-IIV4) vaccine, age 65+ yr, high dose, quadrivalent, PF (FLUZONE HIGH-DOSE) 11/01/2021,11/10/2020,11/01/2019 influenza (IIV3) vaccine, tr ivalent, PF (AFLURIA, FLUARIX, FLULAVAL, FLUVIRIN, FLUZONE) 10/24/2017,10/17/2016,12/10/2012 influenza (IIV3) vaccine, tr ivalent, PF, intradermal (FLUZONE INTRADERMAL) 10/17/2016 influenza (IIV4) vaccine, ag e 6 mo - 64 yr, quadrivalent, PF (AFLURIA, FLUARIX, FLULAVAL, FLUZONE) 10/24/2017,10/12/2016,10/26/2015,11/17,04/01/2014 influenza (IIV4) vaccine, qu adrivalent (AFLURIA, FLULAVAL, FLUZONE) 10/26/2015 influenza (aIIV3) vaccine, a ge 65+ yr, trivalent, PF (FLUAD) 09/27/2018 novel influenza (S2N3-65) vaccine, PF 03/29/2009 pneumococcal conjugate (PCV1 3) vaccine, 13 valent (PREVNAR 13) 07/21/2019,07/17/2018 pneumococcal polysaccharide (PPV23) vaccine, 23 valent (PNEUMOVAX 23) 11/17/2014 tetanus diphtheria pertussis (Tdap) vaccine, age 7+ yr (ADACEL, BOOSTRIX) 07/02/2013 zoster (RZV) vaccine, recomb inant (SHINGRIX) 04/01/2020,01/12/2020,11/01/2019 zoster (ZVL) vaccine, live (ZOSTAVAX) 11/01/2019 ,08/05/2013,07/09/2013 Family History Medical History Relation Comments Kidney Disease Brother Prostate Cancer Father Dementia Mother Diabetes Mother Cancer Paternal Grandfather Kidney Disease Sister Relation Status Comments Brother Father Mother Paternal Grandfather Sister Social History Tobacco Use Types Packs/Day Years Used Date Smoking Tobacco: Former Smokeless Tobacco: Never Alcohol Use Standard Drinks/Week Comments Yes 0 (1 standard drink = 0.6 oz pur e alcohol) rarely PHQ-2 Answer Date Recorded PHQ-2 score 0 01/04/2022 Area Deprivation Index Answer Date Albino rded National Score (1-100), lower number is lower ri sk 86 07/06/2022 State Score (1-10), lower number is lower risk 8 07/06/2022 Data from: https://www.neighborhoodatlas.medicine.[facility]/. Last address used for calculation [address] 07/06/2022 Comments No Sex and Gender Information Value Date Recorded Sex Assigned at Not on file Legal Sex Female 8:07 AM EST Gender Identity Not on file Sexual Orientation Not on file Last Filed Vital Signs Vital Sign Reading Time Taken Comments Blood Pressure 138/77 06/19/2024 1:50 PM EDT Pulse 77 06/19/2024 1:50 PM EDT Temperature 36.6 C (97.9 F) 06/19/2024 1:50 PM EDT Respiratory Rate 16 06/19/2024 1:50 PM EDT Oxygen Saturation 96% 06/19/2024 1:50 PM EDT Inhaled Oxygen Concentration - - Weight 76.7 kg (169 lb 1.5 oz) 06/19/2024 1:50 P M EDT Height 158.8 cm (5' 2.52 ) 10/21/2020 1:07 PM ED T Body Mass Index 30.42 10/21/2020 1:07 PM EDT Plan of Treatment Upcoming Encounters Date Type Department Care Team (Latest Contact Info) Description 07/23/2025 2:00 PM EDT Office Visit [facility] [address] [place] [address] [place] [address] 1 year follow up lab 07/23/2025 2:20 PM EDT Visit (SP) Office Hematology/Oncology [address] [place] [place] [address] Joey House MD [address] [place] [address] 1 year follow up lab Health Maintenance Due Date Last Done Comments Anxiety Screening 07/15/1971 Depression Screening 07/15/1971 Hepatitis C Screening 07/15/1971 CT Colonography 1998 Cologuard (FIT-DNA) 1998 Colonoscopy 1998 Colorectal Cancer Screening 1998 Fecal Occult Blood 1998 Sigmoidoscopy 1998 Mammogram Screening 06/10/2023 06/09/2022, 06/09/2022, 06/21/2021, Additional history exists DTaP,Tdap,Td Vaccine (2 - Td or Tdap) 07/03/2023 07/02/2013 Covid-19 Vaccine (5 - 2023-2 5 season) 2023 11/01/2021, 07/13/2021, 12/07/2020, Additional history exists Advance Directive Discussion 02/06/2024 Pneumococcal Vaccine: 50+ (3 of 3 - PCV20 or PCV21) 07/20/2024 07/21/2019, 07/17/2018, 11/17/2014 Lipid Screening 04/11/2027 04/10/2022, 07/12/2021 Diabetes Screening 06/20/2027 06/19/2024, 0 05/14/2024, 06/21/2023, Additional history exists Shingrix Vaccine Completed 04/01/2020, 08/2019, 11/01/2019, Additional history exists Bone Density Screening Completed , 10/19/2020, 07/17/2018, Additional history exists RSV Vaccine Completed 12/30/2022 Influenza Vaccine Completed 11/02/2023, , 11/01/2021, Additional history exists Procedures Procedure Name Priority Date/Time Associated Diagnosis Comments COMPREHENSIVE METABOLIC PANEL Routine 06/19/2024 1:26 PM EDT History of left breast cancer CBC + DIFF Routine 06/19/2024 1:26 PM EDT History of left breast cancer from Last 3 Months Results * (ABNORMAL) COMPREHENSIVE METABOLIC PANEL (06/19/2024 1:26 PM EDT) Pathologist [facility] Protein, Total 7.0 6.3 - 8.0 g/dL 06/19/2024 1:49 PM EDT [facility] Albumin 4.7 3.9 - 4.9 g/dL 06/19/2024 1:49 PM EDT [facility] Calcium, Total 9.4 8.5 - 10.2 mg/dL 06/19/2024 1:49 PM EDT [facility] Bilirubin, Total 0.6 0.2 - 1.3 mg/dL 06/19/2024 1:49 PM EDT [facility] Alkaline Phosphatase 54 34 - 123 U/L 06/19/2024 1:49 PM EDT [facility] AST 26 13 - 35 U/L 06/19/2024 1:49 PM EDT [facility] ALT 21 7 - 38 U/L 06/19/2024 1:49 PM EDT [facility] Glucose 141(H) 74 - 99 mg/dL 06/19/2024 1:49 PM T [facility] Comment: The [place] Diabetes Association (ADA) provides guidance for cutoff [...] Standards of Medical Care in Diabetes 2016, [place] Diabetes Association. Diabetes Care. 2016.39(Suppl 1). BUN 10 7 - 21 mg/dL 06/19/2024 1:49 PM T [facility] Creatinine 0.62 0.58 - 0.96 mg/dL 06/19/2024 1:49 PM EDT [facility] Sodium 138 136 - 144 mmol/L 06/19/2024 1:49 PM EDT [facility] Potassium 4.2 3.7 - 5.1 mmol/L 06/19/2024 1:49 PM EDT [facility] Chloride 107 98 - 107 mmol/L 06/19/2024 1:49 PM EDT [facility] CO2 21(L) 22 - 30 mmol/L 06/19/2024 1:49 PM EDT [facility] Anion Gap 10 8 - 15 mmol/L 06/19/2024 1:49 PM EDT [facility] Estimated Glomerular Filtration Rate 96 >=60 mL/min/1. 73m 06/19/2024 1:49 PM EDT [facility] Comment:Estimated Glomerular Filtration Rate (eGFR) is calculated using the 2020 CKD-EPI creatinine equation. This equation utilizes serum creatinine, sex, and age as parameters. The creatinine assay has traceable calibration to isotope dilution- mass spectrometry. Refer to KDIGO guidelines for clinical interpretation. In patients with unstable renal function, e.g. those with acute kidney injury, the eGFR may not accurately reflect actual GFR. Blood BLOOD SPECIMEN / Unknown Venipuncture / Unknown 06/19/2024 1:26 PM EDT 06/19/2024 1:26 PM EDT us Betsy Zhang RIM FIRE CHARGER OPERATOR.HEMATOLOGY TECHNICIAN LABORATORY Final Resul t [facility] [address] [place] [address] * COMPLETE BLOOD COUNT AND DIFFERENTIAL (06/19/2024 1:26 PM EDT) WBC 7.93 3.70 - 11.00 k/uL 06/19/2024 1:28 PM EDT [facility] RBC 4.37 3.90 - 5.20 m/uL 06/19/2024 1:28 PM EDT [facility] Hemoglobin 13.9 11.5 - 15.5 g/dL 06/19/2024 1:28 PM EDT [facility] Hematocrit 41.9 36.0 - 46.0 % 06/19/2024 1:28 PM EDT [facility] MCV 95.9 80.0 - 100.0 fL 06/19/2024 1:28 PM EDT [facility] MCH 31.8 26.0 - 34.0 pg 06/19/2024 1:28 PM EDT [facility] MCHC 33.2 30.5 - 36.0 g/dL 06/19/2024 1:28 PM EDT [facility] RDW-CV 13.1 11.5 - 15.0 % 06/19/2024 1:28 PM EDT [facility] Platelet Count 246 150 - 400 k/uL 06/19/2024 1:28 PM EDT [facility] MPV 10.6 9.0 - 12.7 fL 06/19/2024 1:28 PM EDT [facility] Neutrophils % 58.1 % 06/19/2024 1:28 PM EDT [facility] Abs Neut 4.62 1.45 - 7.50 k/uL 06/19/2024 1:28 PM EDT [facility] Lymphocytes % 34.6 % 06/19/2024 1:28 PM EDT [facility] Abs Lymph 2.74 1.00 - 4.00 k/uL 06/19/2024 1:28 PM EDT [facility] Monocytes % 5.3 % 06/19/2024 1:28 PM EDT [facility] Abs Peach 0.42 <0.87 k/uL 06/19/2024 1:28 PM EDT [facility] Eosinophils % 0.8 % 06/19/2024 1:28 PM EDT [facility] Abs Eosin 0.06 <0.46 k/uL 06/19/2024 1:28 PM EDT [facility] Basophils % 0.8 % 06/19/2024 1:28 PM EDT [facility] Abs Baso 0.06 <0.11 k/uL 06/19/2024 1:28 PM EDT [facility] Immature Granulocytes % 0.4 % 06/19/2024 1:28 PM EDT [facility] Abs Immature Gran 0.03 <0.10 k/uL 025 1:28 PM EDT [facility] NRBC 0.0 /100 WBC 06/19/2024 1:28 PM EDT [facility] Absolute nRBC <0.01 <0.01 k/uL 06/19/2024 1:28 PM EDT [facility] Diff Type Auto 06/19/2024 1:28 PM EDT [facility] Blood BLOOD SPECIMEN / Unknown Venipuncture / Unknown 06/19/2024 1:26 PM EDT 06/19/2024 1:26 PM EDT us Betsy Zhang RIM FIRE CHARGER OPERATOR.HEMATOLOGY TECHNICIAN LABORATORY Final Resul t [facility] [address] [place] [address] from Last 3 Months Insurance [facility] MEDICARE Advance Directives Documents on File Type Date Recorded Patient Clearance Center Manager Expl anation Advance Directive(s) 01/11/2022 Advance Directives Care Teams Delivery Supervisor Relationship Specialty Start Date End Date Cecilio Patel II, MD [address] [place] [address] PCP - General Internal Medicine 07/22/15 Christine Carlton LSW Special Effects Person 01/06/22
--- OUTSIDE RECORDS SUMMARY | 2024-07-14 09:09 | XMS_ITS | Clinical Summary ---
Author Organization [facility] Address [address] [place] [address] Care Team Providers Care Call Center Assistant Name Role Phone Cecilio Patel MD Primary Care Provider [phone] Allergies No known active allergies Medications anastrozole (ARIMIDEX) 1 MG tablet Take 1 mg by mouth daily Active pravastatin (PRAVACHOL) 40 MG tablet Take 40 mg by mouth daily Active PARoxetine (PAXIL) 30 MG tablet Take 30 mg by mouth every morning Active ALPRAZolam (XANAX) 1 MG tablet Take 0.5 mg by mouth nightly as needed for Sleep. Active alendronate (FOSAMAX) 70 MG tablet Take 70 mg by mouth every 7 days Active gabapentin (NEURONTIN) 400 MG capsule Take 400 mg by mouth 3 times daily. Active oxyCODONE-aceta minophen (PERCOCET) 5-325 MG per tablet Take 1 tablet by mouth every 6 hours as needed for Pain. Active Family History Medical History Relation Name Comments Cancer Father Arthritis Mother Diabetes Mother Heart Disease Mother High Blood Pressure Mother Stroke Mother Relation Name Status Comments Father Mother Social History Tobacco Use Types Packs/Day Years Used Date Smoking Tobacco: Every Day Smokeless Tobacco: Never Comments Unknown Sex and Gender Information Value Date Recorded Sex Assigned at Not on file Legal Sex Female 9:58 AM EST Gender Identity Not on file Sexual Orientation Not on file Last Filed Vital Signs Vital Sign Reading Time Taken Comments Blood Pressure 116/57 02/12/2019 10:55 AM EST Pulse 64 02/12/2019 10:55 AM EST Temperature 36.7 C (98 F) 03/07/2019 11:18 AM EST Respiratory Rate 16 02/12/2019 10:00 AM EST Oxygen Saturation 98% 02/12/2019 10:55 AM EST Inhaled Oxygen Concentration - - Weight 72.6 kg (160 lb) 03/07/2019 11:18 AM EST Height 160 cm (5' 3 ) 03/07/2019 11:18 AM EST Body Mass Index 28.34 03/07/2019 11:18 AM EST Plan of Treatment Not on file Insurance [employer] MEDICARE Care Teams Call Center Assistant Relationship Specialty Start Date End Date Cecilio Patel MD [address] [facility] [address] [place] [address] PCP - General Internal Medicine 02/03/19
--- OUTSIDE RECORDS SUMMARY | 2024-07-14 09:09 | XMS_ITS | Encounter Summary ---
Author Organization [facility] Address [address] [place] [address] Care Team Providers Care Urology Surgeon Name Role Phone Jorge PENALOZA MD, Cecilio Roberts Primary Care Provider [phone] Christine Carlton Unavailable Unavailable Source Comments In the event this information is protected by the Federal Confidentiality of Alcohol and Drug AbusePatient Records regulations: The Federal rules restrict any use of the information to criminally investigate or prosecute any alcohol or drug abuse patient.[facility] Encounter Details Date Type Department Care Team (Late st Contact Info) Description 11/06/2020 Patient Msg [facility] [address] [place], [place] [id number] Provider, [facility] Genetic Consult Referral Social History Tobacco Use Types Packs/Day Years [...] N ot on file 02/12/2020 Data from: https://www.neighborhoodatlas.medicine[facility]/. Last address used for calculation Not [...] have Coronavirus / COVID-19? No / Unsure 10/21/2020 1:11 PM EDT documented as of this encounter Plan of Treatment Upcoming Encounters Date Type Department Care Team (Latest Contact Info) Description 07/23/2025 2:00 PM EDT Office Visit [facility] [address] [place] [address] [place] [address] 1 year follow up lab 07/23/2025 2:20 PM EDT Visit (SP) Office Hematology/Oncology [address] [place] [address] Joey House MD [address] [place] [address] 1 year follow up lab documented as of this encounter Visit Diagnoses Not on filedocumented in this encounter Care Teams Urology Surgeon Relationship Specialty Start Date End Date Cecilio Patel II, MD [address] [facility] [address] [place] [address] PCP - General Internal Medicine 07/22/15 Christine Carlton LSW Motion Picture Narrator 01/06/22 documented as of this encounter
--- OUTSIDE RECORDS SUMMARY | 2024-07-14 09:09 | XMS_ITS | Encounter Summary ---
Author Organization [facility] Address [address] [place] [address] Care Team Providers Care Hedis Manager Name Role Phone Cecilio Patel MD Primary Care Provider [phone] Encounter Details Date Type Department Care Team (Late st Contact Info) Description 02/13/2019 Post-op Telephone [facility]iology [address] [place] [address] Lorena Morton RN Social History Tobacco Use Types Packs/Day Years Used Date Smoking Tobacco: Every Day Smokeless Tobacco: Never Comments Unknown Sex and Gender Information Value Date Recorded Sex Assigned at Not on file Legal Sex Female 9:58 AM EST Gender Identity Not on file Sexual Orientation Not on file documented as of this encounter Progress Notes * Lorena Morton RN - 02/13/2019 3:40 PM EST 02/13/2019 1455 Patient phoned [facility] for follow up call. Patient denies severe discomfort at the site. She stated, I took a pain pill and it helped, but I was probably overdoing it with all the running I had to do today. Last night I had hot feet, is that normal? Support offered. Patientencouraged to rest and to use an ice pack as needed for intervals of 10 minutes. Site has no bruising or drainage. Pt. reminded to watch for complications for the next 24 to 48 hours. * Lorena Morton RN - 02/13/2019 2:27 PM EST 02/13/2019 Call placed to patient s/p myelogram. Left message for her to return a carina to [facility] deportment when she was available for follow up. documented in this encounter Plan of Treatment Not on file documented as of this encounter Visit Diagnoses Not on filedocumented in this encounter Additional Health Concerns Assessment Noted Time A Body Mass Index follow-up plan has been documented for the patient 01/17/2019 11:50 AM EST documented as of this encounter Care Teams Hedis Manager Relationship Specialty Start Date End Date Cecilio Patel MD [address] [address] PCP - General Internal Medicine 02/03/19 documented as of this encounter
--- OUTSIDE RECORDS SUMMARY | 2024-07-14 09:09 | XMS_ITS | Encounter Summary ---
Author Organization [facility] Address [address] [facility] [place] [address] Care Team Providers Care Oracle Software Engineer Name Role Phone Cecilio Patel MD Primary Care Provider [phone] Cecilio Patel MD Unavailable [phone] Encounter Details Date Type Department Care Team (Late st Contact Info) Description 10/19/2022 Abstract [facility] [address] [facility] [address] [place] [address] Lorenza Parrish PA [address] [facility] [address] [place] [address] Social History Tobacco Use Types Packs/Day Years [...] on filedocumented in this encounter Care Teams Oracle Software Engineer Relationship Specialty Start Date End Date Cecilio Patel MD [address] [facility] [address] [place] [address] PCP - General Internal Medicine 08/09/22 Cecilio Patel MD [address] [facility] [address] [place] [address] PCP - [employer] 02/05/21 documented as of this encounter
--- OUTSIDE RECORDS SUMMARY | 2024-07-14 09:09 | XMS_ITS | Encounter Summary ---
Author Organization [facility] Address [address] [facility] [place] [address] Care Team Providers Care Director Database Name Role Phone Cecilio Patel MD Primary Care Provider [phone] Cecilio Patel MD Unavailable [phone] Encounter Details Date Type Department Care Team (Late st Contact Info) Description 07/12/2022 Abstract [facility] [address] [facility] [address] [place] [address] Cecilio Patel MD [address] [place] [address] [place] [address] Social History Tobacco Use Types Packs/Day Years Used Date Smoking Tobacco: Never Assessed Comments Unknown Sex and Gender Information Value Date Recorded Sex Assigned at Not on file Legal Sex Female 6:46 PM EDT Gender Identity Not on file Sexual Orientation Not on file documented as of this encounter Plan of Treatment Not on file documented as of this encounter Visit Diagnoses Not on filedocumented in this encounter Care Teams Director Database Relationship Specialty Start Date End Date Cecilio Patel MD [address] [place] [address] [place] [address] PCP - General Internal Medicine 08/09/22 Cecilio Patel MD [address] [place] [address] [place] [address] PCP - [employer] 02/05/21 documented as of this encounter
--- NOTE | 2024-07-14 09:15 | CT_ITS ---
The [address] [address] Patient Name: CHESTER TEAGUE MRN: [id number] date: 1955 Sex: F Assigned Patient Location: CT Current Patient Location: CT Accession/Order Number: [id number] Exam Date: 07/14/2024 11:56 Report Date: 07/14/2024 12:05 At the request of: LORENZA SANTORO Procedure: CT lung screening low-dose LOW-DOSE SCREENING CHEST CT WITHOUT CONTRAST COMPARISON: 05/14/2023 CLINICAL DATA: Current smoker for approximately 45 years. Spiral axial unenhanced low-dose images were obtained through the chest. Images were reviewed using both narrow and wide window settings. This CT exam was performed using one or more following dose reduction techniques: Automated exposure control, adjustment of the mA and/or kV according to patient size, or use of iterative reconstruction technique. The heart is within normal limits for size. No pericardial effusion is present. No aortic aneurysm is identified. Minimal plaque at the aortic arch. There are few small nonpathologic mediastinal lymph nodes. Hemostasis clips are visualized at the left axilla. There are mild degenerative changes at the spine. Similar scarring is visualized at the upper lobes. Scarring is also seen at the right middle lobe and lingula. No new consolidation, pleural effusion or pneumothorax is identified. There are stable pulmonary nodules involving both upper lobes, right on axial image 14 and the left on axial images 19 and 40. Also a similar 5 mm pleural-based nodular density is seen at the lateral left lower lobe on axial image 105. No new nodularity is noted. Limited cuts through the upper abdomen show no contributory findings. CT/CT lung screening low-dose IMPRESSION: PULMONARY SCARRING. STABLE PULMONARY NODULARITY. Lung RADS category 2 - benign Twelve-month low-dose CT follow-up suggested. Impression dictated by: Lorenza Krueger M.D. 07/14/2024 12:05 PM Dictation Location: [place] [address] Electronically authenticated by: [id number] Date: 07/14/2024 12:05
--- NOTE | 2024-07-14 09:15 | MM_ITS ---
Patient Name: CHESTER TEAGUE MR#: [id number] : 1955 Exam Date: 07/14/2024 Ordering Doctor: DR NEERAJ DIOR RADIOLOGY REPORT PROCEDURE: MM TOMOSYNTHESIS SCREENING BI COMPARISON: MM TOMOSYNTHESIS SCREENING BI, 07/03/2023. MG MAMM SCREEN 3D LEONOR CAD, 06/09/2022. MG MAMM SCREEN 3D LEONOR CAD, 08/18/2020. MG MAMM LEONOR SCRN W CAD DIG, 05/28/2013. INDICATIONS: Screening Calculator Name NCI Breast Cancer Risk Assessment Tool 5 Year Breast Cancer Risk n/a% Lifetime Breast Cancer Risk n/a% Personal Breast Cancer Yes, 5-16 Personal Ovarian Cancer No Treatments lumpectomy, radiation Family Cancers Aunt-maternal with breast cancer at age ~60; Nephew with pancreatic cancer at age 39; Father with prostate cancer at age ~70; Grandfather-paternal with prostate cancer at age ~70. LOCATION: [facility] BREAST COMPOSITION: There are scattered areas of fibroglandular density. FINDINGS: RIGHT BREAST: No significant suspicious finding. LEFT BREAST: No significant suspicious finding. Stable lumpectomy DIAGNOSTIC CATEGORY 1--NEGATIVE. RECOMMENDATIONS: ROUTINE MAMMOGRAM AND CLINICAL EVALUATION IN 12 MONTHS. PLEASE NOTE: A NORMAL MAMMOGRAM DOES NOT EXCLUDE THE POSSIBILITY OF BREAST CANCER. A CLINICALLY SUSPICIOUS PALPABLE LUMP SHOULD BE BIOPSIED. Dictated by: Sebastian Pierce DO on 07/14/2024 at 11:42 Approved by: Sebastian Pierce DO on 07/14/2024 at 11:46
== END 2024-07-14 09:05 | disposition home or self-care (01) ==
LOC: CT 09:05
PROVIDERS: PCP Physician Assistant; Visit Provider Physician Assistant
DX: Z12.31 Encounter for screening mammogram for malignant neoplasm of breast (principal); F17.210 Nicotine dependence, cigarettes, uncomplicated; Z80.3 Family history of malignant neoplasm of breast; Z80.42 Family history of malignant neoplasm of prostate; Z80.8 Family history of malignant neoplasm of other organs or systems
CPT/HCPCS: 71271; 77063; 77067